=== PATIENT | male | born 1940 | race Caucasian/White ===

== ENCOUNTER 2017-01-20 09:12 | Emergency (ER) | payer OTHER ==
[~2017-01-20] VITALS: Ht 177.8 cm; Wt 123.0 kg
[~2017-01-20 09:12] MED LIST: ASPI81TA28 PO; CPR500 PO; ENAL10TA88 PO; FINA5TAB PO; FLM4 PO; LEVO75TA PO; LIDO2SOL TOP; LORA10CA2 PO; METF1000 PO; NAPR250T43 PO; NITR0.4S UT; PRAV20TA PO
[2017-01-20 09:22] VITALS: TEMP 36.9; Ht 177.8 cm; Wt 123.0 kg
[2017-01-20] MEDS ORDERED: METO50TA16 PO (09:49)
[2017-01-20] MEDS ORDERED: HYDR25TA4 PO (09:49)
[2017-01-20] MEDS ORDERED: METF-383 PO (09:49)
[2017-01-20] MEDS ORDERED: GUAIFENESIN PO (09:49)
[2017-01-20] MEDS ORDERED: MCR5 PO (09:49)
[2017-01-20] MEDS ORDERED: CICL80AE INH (09:49)
[2017-01-20] MEDS ORDERED: MELO7.5T5 PO (09:49)
[2017-01-20] MEDS ORDERED: ENAL10TA88 PO (09:49)
[2017-01-20] MEDS ORDERED: AMLO-110 PO (09:49)
[2017-01-20] MEDS ORDERED: TAMS0.4C38 PO (09:50)
[2017-01-20 09:54] LABS: HEMATOCRIT 47.2 % (42-52); MEAN CELL VOLUME 83.2 fL (80-100); MEAN CORPUSCULAR HEMOGLOBIN 25.9 pg (25-34); MEAN CORPUSCULAR HGB CONC 31.1 g/dl (32-36); PLATELET COUNT 174 K/uL (130-400); RED BLOOD COUNT 5.67 M/uL (4.7-6.1); WHITE BLOOD COUNT 11.72 K/uL (4.8-10.8)
[2017-01-20 10:02] LABS: PROTHROMBIN TIME (PATIENT) 10.9 SECONDS (9.0-12.0)
[2017-01-20 10:13] LABS: BUN/CREATININE RATIO 12.8 (10-20); CALCIUM 8.6 mg/dl (8.5-10.1); CREATININE 1.4 mg/dl (0.60-1.40); MAGNESIUM 1.7 mg/dl (1.8-2.4)
--- NOTE | 2017-01-20 10:16 | DIAGNOSTIC IMAGING REPORT ---
HEAD WITHOUT CONTRAST (CT) CT DOSE: 884.08 mGy.cm HISTORY: Mental status change eval for bleed TECHNIQUE: Multiaxial CT images of the head were performed without the use of intravenous contrast. A dose lowering technique was utilized adhering to the principles of ALARA. Comparison: None. Findings: The paranasal sinuses and mastoid air cells are clear. Mucous attention cyst left maxillary sinus. Nondisplaced fracture nasal bones considered nonacute by CT criteria.. The calvarium and skull base are intact. The ventricles and sulci are within normal limits. There is no mass, hematoma, midline shift, or acute infarct. Age-related atrophy and chronic small vessel change. No midline shift. Impression: No acute intracranial abnormality. Age-related and chronic change. The above report was generated using voice recognition software. It may contain grammatical, syntax or spelling errors. Electronically signed by: Edilberto Dubose M.D. 01/20/2017 10:14 AM Dictated Date/Time: 01/20/2017 10:12 AM
--- NOTE | 2017-01-20 10:16 | DIAGNOSTIC IMAGING REPORT ---
CHEST ONE VIEW PORTABLE CLINICAL HISTORY: Pneumonia COMPARISON STUDY: 12/01/2013 FINDINGS: The heart is mildly enlarged. There is no failure. There is a persistent opacity at the left cardiophrenic angle, likely representing atelectasis/scar.[ IMPRESSION: 1. Stable cardiomegaly 2. No failure 3. Stable opacity at the left cardiophrenic angle likely representing subsegmental atelectasis/scar Electronically signed by: Michael Dejesus M.D. 01/20/2017 10:14 AM Dictated Date/Time: 01/20/2017 10:14 AM
[2017-01-20 10:21] LABS: BASO % 0.3 %; BASO ABS # 0.03 K/uL (0-0.2); COMPLETE YES; EOS % 2.4 %; IG% 0.4 %; LYMPH % 17.7 %; LYMPH ABS # 2.07 K/uL (1.2-3.4); MONO % 9.1 %; NEUT % 70.1 %
[2017-01-20 10:22] LABS: THYROID STIMULATING HORMONE 1.97 uIu/ml (0.300-4.500)
[2017-01-20] MEDS ORDERED: SODIUM CHLORIDE 0.9% 250ML 250 ML IV STA (10:25)
[2017-01-20] MEDS ORDERED: MAGNESIUM OXIDE 400 MG TAB PO STA (10:25)
[2017-01-20 10:37] VITALS: BP 144/88; PULSE 56; O2SAT 92
--- NOTE | 2017-01-20 16:47 | EMERGENCY ROOM VISIT NOTE ---
History Report prepared by Haja: Maricel Cuellar Under the Supervision of: Dr. Javon Bryant M.D. First contact with patient: 09:36 Chief Complaint: SYNCOPE Stated Complaint: SYNCOPE Nursing Triage Summary: pt here via [facility] from [facility] with a syncopal event today after eating breakfast. pt has long hx of syncopal events from low potassium. pt states was dizzy prior to event. pt denies any pain. pt has abrasions to left knee and left wrist. History of Present Illness The patient is a 76 year old male who presents to the Emergency Room with complaints of syncope beginning today. The patient reports that he stood up and felt like he was going to pass out. He states that he passed out completely and that he fell down a step. He states he initially fell to his knees and arms and then passed out. He was only unconscious for a brief time. The patient states that he had help getting back up and that he does not think that he hit his head. He reports that he normally takes his medications after breakfast, but that today he took his medications and then went to breakfast. The patient states has had these episodes before but mostly when he's asleep and then sits up in the morning, or when he has been sitting and then goes to stand up. He reports that these episodes have been going on for years, but that his syncope today was more severe than usual. The patient denies having chest pain, shortness of breath before the episode, and back pain. The patient reports having a history of an abdominal aortic aneurysm repair, right carotid endarterectomy, and an aortic valve replacement in 2002. Source of History: patient Onset: today Position: other (global) Quality: other (syncope ) Timing: other (has had syncopal episodes before) Associated Symptoms: No chest pain, No SOB, No back pain Review of Systems See HPI for pertinent positives & negatives. A total of 10 systems reviewed and were otherwise negative. Past Medical & Surgical Medical Problems: (1) Coronary artery disease (2) Urinary retention (3) UTI (urinary tract infection) Surgical Problems: (1) H/O cardiac catheterization (2) H/O carotid endarterectomy (3) H/O percutaneous transluminal coronary angioplasty (4) Stented coronary artery Family History FH: prostate cancer Social History Smoking Status: Former Smoker Drug Use: none Housing Status: other Occupation Status: unemployed Current/Historical Medications Scheduled Amlodipine (Norvasc), 5 MG PO QAM Aspirin (Aspirin Ec), 81 MG PO QAM Ciclesonide (Alvesco), 1 PUFF INH BID Enalapril (Vasotec), 20 MG PO BID Finasteride (Proscar), 5 MG PO HS Glyburide (Glyburide), 5 MG PO BID Hydrochlorothiazide (Hctz), 25 MG PO QAM Levothyroxine Sodium (Synthroid), 75 MCG PO DAILY Meloxicam (Mobic), 15 MG PO HS Metformin Hcl (Glucophage), 850 MG PO TID Metoprolol Tartrate (Lopressor) (Lopressor), 50 MG PO BID Nitroglycerin (Nitrostat), 0.4 MG UT PRN Pravastatin (Pravachol ), 40 MG PO HS Tamsulosin Hcl (Flomax), 2 CAP PO HS [Guaifenesin], 400 MG PO QAM Allergies Coded Allergies: No Known Allergies (Unverified , 01/20/17) Physical Exam Vital Signs Date Time Temp Pulse Resp B/P (MAP) Pulse Ox O2 Delivery O2 Flow Rate FiO2 01/20/17 10:37 56 16 144/88 92 Room Air 01/20/17 10:00 61 128/59 60 120/61 66 103/64 01/20/17 09:24 61 01/20/17 09:22 36.9 65 16 141/71 92 Room Air Physical Exam Constitutional: Vital signs reviewed. Eyes: Pupils are equal round reactive to light. Conjunctiva are noninjected. ENT: Pharynx is clear without erythema or exudate. Mucous membranes are moist. Neck supple without meningeal signs. No midline tenderness to cervical spine. Respiratory: Clear to auscultation bilaterally. Breath sounds are equal bilaterally. Cardiovascular: Regular rate and rhythm. No rubs or gallops. No carotid bruit. GI: Soft, nondistended and nontender. Bowel sounds are present. No pulsatile masses. Musculoskeletal: Small skin tear to the left wrist without any tenderness. Abrasions to both knees without significant tenderness. No hip tenderness. Integumentary: No cyanosis. Neurological: The patient is awake and alert. Cranial nerves II-XII are intact. Motor is 5 out of 5 all extremities. Sensation is intact to light touch all extremities. Normal speech. No pronator drift. Psychiatric: Normal affect. Medical Decision & Procedures ER Provider Diagnostic Interpretation: CT results as stated below per my review and radiologist interpretation. HEAD WITHOUT CONTRAST (CT) CT DOSE: 884.08 mGy.cm HISTORY: Mental status change eval for bleed TECHNIQUE: Multiaxial CT images of the head were performed without the use of intravenous contrast. A dose lowering technique was utilized adhering to the principles of ALARA. Comparison: None. Findings: The paranasal sinuses and mastoid air cells are clear. Mucous attention cyst left maxillary sinus. Nondisplaced fracture nasal bones considered nonacute by CT criteria.. The calvarium and skull base are intact. The ventricles and sulci are within normal limits. There is no mass, hematoma, midline shift, or acute infarct. Age-related atrophy and chronic small vessel change. No midline shift. Impression: No acute intracranial abnormality. Age-related and chronic change. The above report was generated using voice recognition software. It may contain grammatical, syntax or spelling errors. Electronically signed by: Edilberto Dubose M.D. 01/20/2017 10:14 AM Dictated Date/Time: 01/20/2017 10:12 AM X-ray results as stated below per interpretation by me and the radiologist: CHEST ONE VIEW PORTABLE CLINICAL HISTORY: Pneumonia COMPARISON STUDY: 12/01/2013 FINDINGS: The heart is mildly enlarged. There is no failure. There is a persistent opacity at the left cardiophrenic angle, likely representing atelectasis/scar.[ IMPRESSION: 1. Stable cardiomegaly 2. No failure 3. Stable opacity at the left cardiophrenic angle likely representing subsegmental atelectasis/scar Electronically signed by: Michael Dejesus M.D. 01/20/2017 10:14 AM Dictated Date/Time: 01/20/2017 10:14 AM Laboratory Results 01/20/17 09:30 Red Blood Count 5.67, Mean Corpuscular Volume 83.2, Mean Corpuscular Hemoglobin 25.9, Mean Corpuscular Hemoglobin Concent 31.1, Mean Platelet Volume 11.0, Neutrophils (%) (Auto) 70.1, Lymphocytes (%) (Auto) 17.7, Monocytes (%) (Auto) 9.1, Eosinophils (%) (Auto) 2.4, Basophils (%) (Auto) 0.3, Neutrophils # (Auto) 8.22, Lymphocytes # (Auto) 2.07, Monocytes # (Auto) 1.07, Eosinophils # (Auto) 0.28, Basophils # (Auto) 0.03 01/20/17 09:30 Test 01/20/17 09:30 01/20/17 09:53 White Blood Count 11.72 K/uL (4.8-10.8) Red Blood Count 5.67 M/uL (4.7-6.1) Hemoglobin 14.7 g/dL (14.0-18.0) Hematocrit 47.2 % (42-52) Mean Corpuscular Volume 83.2 fL (80-100) Mean Corpuscular Hemoglobin 25.9 pg (25-34) Mean Corpuscular Hemoglobin Concent 31.1 g/dl (32-36) Platelet Count 174 K/uL (130-400) Mean Platelet Volume 11.0 fL (7.4-10.4) Neutrophils (%) (Auto) 70.1 % Lymphocytes (%) (Auto) 17.7 % Monocytes (%) (Auto) 9.1 % Eosinophils (%) (Auto) 2.4 % Basophils (%) (Auto) 0.3 % Neutrophils # (Auto) 8.22 K/uL (1.4-6.5) Lymphocytes # (Auto) 2.07 K/uL (1.2-3.4) Monocytes # (Auto) 1.07 K/uL (0.11-0.59) Eosinophils # (Auto) 0.28 K/uL (0-0.5) Basophils # (Auto) 0.03 K/uL (0-0.2) RDW Standard Deviation 45.7 fL (36.4-46.3) RDW Coefficient of Variation 15.1 % (11.5-14.5) Immature Granulocyte % (Auto) 0.4 % Immature Granulocyte # (Auto) 0.05 K/uL (0.00-0.02) Prothrombin Time 10.9 SECONDS (9.0-12.0) Prothromb Time International Ratio 1.0 (0.9-1.1) Activated Partial Thromboplast Time 26.6 SECONDS (21.0-31.0) Partial Thromboplastin Ratio 1.0 Anion Gap 8.0 mmol/L (3-11) Est Creatinine Clear Calc Drug Dose 60.0 ml/min Estimated GFR () 56.6 Estimated GFR (Non- 48.8 BUN/Creatinine Ratio 12.8 (10-20) Calcium Level 8.6 mg/dl (8.5-10.1) Magnesium Level 1.7 mg/dl (1.8-2.4) Total Bilirubin 0.5 mg/dl (0.2-1) Direct Bilirubin 0.1 mg/dl (0-0.2) Aspartate Amino Transf (AST/SGOT) 8 U/L (15-37) Alanine Aminotransferase (ALT/SGPT) 17 U/L (12-78) Alkaline Phosphatase 55 U/L (45-117) Total Protein 6.9 gm/dl (6.4-8.2) Albumin 3.3 gm/dl (3.4-5.0) Thyroid Stimulating Hormone (TSH) 1.970 uIu/ml (0.300-4.500) Free Thyroxine 1.18 ng/dl (0.80-1.60) Bedside Troponin I < 0.030 ng/ml (0-0.045) Laboratory results as reviewed by me. Medications Administered Medications (Trade) Dose Ordered Sig/Markel Route Start Time Stop Time Status Last Admin Dose Admin Magnesium Oxide (Mag-Ox Tab) 400 mg ONE STAT PO 01/20/17 10:25 01/20/17 10:28 DC 01/20/17 10:36 400 MG Sodium Chloride 250 ml @ 999 mls/hr Q16M STAT IV 01/20/17 10:25 01/20/17 10:40 DC 01/20/17 10:36 999 MLS/HR ECG Indication: syncope Rate (beats per minute): 66 Rhythm: normal sinus Findings: no acute ischemic change, left axis deviation, other (no significant changes from ECG on December 02, 2013) ED Course 0937: The patient was evaluated in room B6. A complete history and physical exam was performed. 1025: Ordered Sodium Chloride 250 ml @ 999 mls/hr IV, Magnesium Oxide 400 mg PO. 1032: We talked about his test results and he says he would like to go back to the [facility]. 1045: Upon reevaluation, the patient appeared to have improvement of his symptoms. I discussed tonight's findings with him. He verbalized agreement of the treatment plan. He was discharged back to the [facility]. Medical Decision This is a 76-year-old male presents with a syncopal episode. Differential diagnosis includes vasovagal syncope, orthostatic hypotension, dehydration, metabolic derangement, cardiac. I did perform a limited focused review of portions of the patient's old chart on the electronic medical record. The patient has had no recent pertinent visits to this hospital. I did evaluate the patient as noted above the patient is presenting with a syncopal episode. He states that he has been getting syncopal episodes for years. He often gets it when he stands up too quickly after lying down or sitting down. He states today that he took his medication before breakfast rather than after as he usually does and when he got up from breakfast he started to get lightheaded and passed out falling down one step. Currently he has no complaints. He at no time had any chest discomfort, shortness of breath or palpitations. IV access was established. The patient was placed on a continuous satellite project site monitor. I did order and personally review the patient's 12- lead EKG and chest x-ray as described above. I did order and review the patient 's blood work as noted in the electronic medical record. Troponin is negative. Electrolytes are unremarkable other than very mild hypomagnesemia. He is not anemic. He was given a dose of magnesium oxide. I did order a CT of the head. I did review the images myself as well as the radiology report as described above. There is no evidence of intracranial hemorrhage. We did obtain orthostatic vital signs. The patient does have orthostatic hypotension upon standing. This likely contributed to his syncope. He was given IV normal saline. I did discuss the test results with the patient. He did wish to return back to [facility]. He was advised follow up with the [facility] there and discharged in good condition. He was given precautions regarding his orthostatic hypotension. Medication Reconcilliation Current Medication List: was personally reviewed by me Blood Pressure Screening Patient's blood pressure: Elevated blood pressure Impression Primary Impression: Syncope Additional Impressions: Hypomagnesemia Orthostatic hypotension Scribe Attestation The scribe's documentation has been prepared under my direct and personally reviewed by me in its entirety. I confirm that the note above accurately reflects all work, treatment, procedures, and medical decision making performed by me. Departure Information Dispostion Other Referrals Katalina MCLAIN (PCP) Forms HOME CARE DOCUMENTATION FORM, IMPORTANT VISIT INFORMATION Patient Instructions ED Hypotension Orthostatic, My [facility], Syncope Additional Instructions You have been examined and treated today on an emergency basis only. This is not a substitute for, or an effort to provide, complete comprehensive medical care. It is impossible to recognize and treat all injuries or illnesses in a single emergency department visit. It is therefore important that you follow up closely with the [facility]. Return for worsening symptoms or if you develop fever, vomiting, chest pain, shortness of breath, back pain, abdominal pain or any other concerning symptoms. Do not engage in any activity that may put yourself or others at risk should you pass out again. This includes, but is not limited to, driving, taking a bath, climbing heights, swimming or operating heavy machinery Problem Qualifiers Primary Impression: Syncope Syncope type: unspecified Qualified Codes: R55 - Syncope and collapse
== END 2017-01-20 11:07 | disposition home or self-care (01) ==
LOC: EDBD 09:12 → C.EDB 09:13
DX: R55 Syncope and collapse (principal); E83.42 Hypomagnesemia; I95.1 Orthostatic hypotension; I25.10 Atherosclerotic heart disease of native coronary artery without angina pectoris; Z87.440 Personal history of urinary (tract) infections; Z98.61 Coronary angioplasty status; Z98.890 Other specified postprocedural states; Z87.891 Personal history of nicotine dependence; Z79.82 Long term (current) use of aspirin; Z79.84 Long term (current) use of oral hypoglycemic drugs; Z79.899 Other long term (current) drug therapy; Z80.42 Family history of malignant neoplasm of prostate

== ENCOUNTER → 2017-08-18 | Outpatient (CLI) | payer OTHER ==
[~2017-08-18] MED LIST changes: +AMLO-110 PO; +CICL80AE INH; -CPR500 PO; -FLM4 PO; +GUAIFENESIN PO; +HYDR25TA4 PO; -LIDO2SOL TOP; -LORA10CA2 PO; +MCR5 PO; +MELO7.5T5 PO; +METF-383 PO; -METF1000 PO; +METO50TA16 PO; -NAPR250T43 PO; +PERFLUTREN LIPID MICROSPHERE (DEFINITY) IV ONE; +TAMS0.4C38 PO
--- NOTE | 2017-08-18 15:22 | ECHOCARDIOGRAM REPORT ---
*NOTICE TO RECEIVING LIBERTARIAN AGENCY This information is strictly Confidential and protected under [place] law. [place] law prohibits you from making any further disclosure of this information unless further disclosure is expressly permitted by the written consent of the person to whom it pertains or is authorized by law. A general authorization for the release of medical or other information is not sufficient for this purpose. Hospital accepts no responsibility if the information is made available to any other person, INCLUDING THE PATIENT. Interpretation Summary * Name: YOUNG UMANZOR [id number] Study Date: 08/18/2017 01:07 PM BP: 170/84 mmHg * Patient Location: [facility] HR: 73 * : 1940 (M/d/yyyy) Gender: Male Height: 70 in * Age: 77 yrs Ethnicity: CA Weight: 262 lb * Ordering Physician: Richar Bush * Referring Physician: Polo Richmond D.O. * Performed By: Nicole Daniel RDCS * * Reason For Study: Congestive Heart Failure * BSA: 2.3 m2 * -- Conclusions -- * Left ventricular systolic function is normal. * No regional wall motion abnormalities noted. * Ejection Fraction = 55-60%. * There is mild concentric left ventricular hypertrophy. * Grade I diastolic dysfunction, (abnormal relaxation pattern). Procedure Details * A complete two-dimensional transthoracic echocardiogram was performed (2D, M-mode, Doppler and color flow Doppler). * The study was technically difficult. * The study was technically difficult, but visualization was adequate with the administration of Definity ultrasound contrast. * There were technical limitations due to patient'sbody habitus * A contrast injection of Definity was performed to improve assessment of LV function. * Contrast was injected into an intravenous site in the right arm. * One vial of Definity ultrasound contrast was diluted in normal saline to a total volume of 10 ml. A total of '2' ml of solution was administered during imaging. * Lot # [id number] of Definity utilized for procedure. * Expiration date . * The attending nurse who injected the contrast agent was Irena Martini RN. Left Ventricle * The left ventricle is normal in size. * There is mild concentric left ventricular hypertrophy. * Ejection Fraction = 55-60%. * Left ventricular systolic function is normal. * No regional wall motion abnormalities noted. Right Ventricle * The right ventricle is grossly normal size. * The right ventricular systolic function is normal as assessed by tricuspid annular plane systolic excursion (TAPSE) (normal >1.5 cm). Atria * The left atrium is moderately dilated. * The right atrium is mildly dilated. * No ASD detected; PFO is not assessed. Mitral Valve * The mitral valve is grossly normal. * There is no mitral valve stenosis. * Significant mitral regurgitation is absent. Tricuspid Valve * The tricuspid valve is not well visualized, but is grossly normal. * There is no tricuspid stenosis. * Significant tricuspid regurgitation is absent. Aortic Valve * The aortic valve is not well visualized. * The aortic valve opens well. * No hemodynamically significant valvular aortic stenosis. * No aortic regurgitation is present. Pulmonic Valve * The pulmonary valve is not well seen, but the Doppler examination is normal without significant regurgitation or stenosis. Great Vessels * The aortic root is normal size. * The pulmonary is not well visualized. Pericardium/Pleural * There is no pericardial effusion. Great Vessels * Normal inferior vena cava size and collapsability with sniff indicates a normal right atrial pressure of 3 mmHg Left Ventricular Diastolic Function * Grade I diastolic dysfunction, (abnormal relaxation pattern). MMode 2D Measurements and Calculations IVSd 1.3 cm IVSs 1.5 cm LVIDd 4.3 cm LVIDs 2.8 cm LVPWd 1.2 cm LVPWs 1.2 cm IVS/LVPW 1.1 FS 34.2 % EDV(Teich) 81.0 ml ESV(Teich) 29.5 ml EF(Teich) 63.6 % EDV(cubed) 77.0 ml ESV(cubed) 21.9 ml EF(cubed) 71.6 % % IVS thick 17.6 % % LVPW thick 1.9 % LV mass(C)d 187.6 grams LV mass(C)dI 80.1 grams/m\S\2 LV mass(C)s 120.5 grams LV mass(C)sI 51.5 grams/m\S\2 SV(Teich) 51.5 ml SI(Teich) 22.0 ml/m\S\2 SV(cubed) 55.1 ml SI(cubed) 23.5 ml/m\S\2 Ao root diam 3.1 cm Ao root area 7.3 cm\S\2 ACS 1.9 cm LA dimension 4.5 cm LA/Ao 1.5 LVAd ap4 29.6 cm\S\2 LVLd ap4 8.3 cm EDV(MOD-sp4) 88.0 ml EDV(sp4-el) 89.5 ml LVAs ap4 17.0 cm\S\2 LVLs ap4 6.7 cm ESV(MOD-sp4) 36.3 ml ESV(sp4-el) 36.5 ml EF(MOD-sp4) 58.8 % EF(sp4-el) 59.3 % LVAd ap2 30.3 cm\S\2 LVLd ap2 9.1 cm EDV(MOD-sp2) 88.2 ml EDV(sp2-el) 85.8 ml LVAs ap2 18.3 cm\S\2 LVLs ap2 7.8 cm ESV(MOD-sp2) 39.5 ml ESV(sp2-el) 36.4 ml EF(MOD-sp2) 55.2 % EF(sp2-el) 57.6 % LVLd %diff 8.9 % EDV(MOD-bp) 91.4 ml LVLs %diff 13.7 % ESV(MOD-bp) 39.4 ml EF(MOD-bp) 56.9 % SV(MOD-sp4) 51.8 ml SI(MOD-sp4) 22.1 ml/m\S\2 SV(MOD-sp2) 48.7 ml SI(MOD-sp2) 20.8 ml/m\S\2 SV(MOD-bp) 52.0 ml SI(MOD-bp) 22.2 ml/m\S\2 SV(sp4-el) 53.1 ml SI(sp4-el) 22.7 ml/m\S\2 SV(sp2-el) 49.4 ml SI(sp2-el) 21.1 ml/m\S\2 Doppler Measurements and Calculations MV E max ruba 62.8 cm/sec MV A max ruba 91.4 cm/sec MV E/A 0.69 MV dec time 0.16 sec Ao V2 max 103.4 cm/sec Ao max PG 4.3 mmHg Ao max PG (full) 1.3 mmHg LV V1 max PG 3.0 mmHg LV V1 max 86.8 cm/sec PA V2 max 92.5 cm/sec PA max PG 3.4 mmHg
== END | disposition home or self-care (01) ==
LOC: C.CPL 13:01
PROVIDERS: ATTEND Family Medicine
DX: I50.9 Heart failure, unspecified (principal); I25.10 Atherosclerotic heart disease of native coronary artery without angina pectoris; E78.5 Hyperlipidemia, unspecified; I11.0 Hypertensive heart disease with heart failure

== ENCOUNTER 2020-01-07 15:38 | Inpatient (IN) ==
--- NOTE | 2020-01-07 15:58 | Emergency Department Note ---
Impression & Plan Sepsis, Hypoxia, Acute dyspnea, Cough, Elevated troponin, Abnormal ECG ED Provider Note NAME: YOUNG NOGUERA [id number] NOÉ AGE: 79 SEX: M : 1940 ARRIVES VIA: Ambulance INFORMANT: Patient ED PROVIDER(S): Xavier Crowder DO CHIEF COMPLAINT: Chest pain HPI: Patient is a 79-year-old male who presents the ER for chest pain via EMS. Patient notes that he woke up around 3 PM and his whole body was shaking. He notes that he started having chest tightness. He notes that for the past week he has been having worsening cough but no change in sputum. He notes that he has been also having worsening shortness of breath. He has some shortness of breath now but his chest pain has resolved with the medication that he was given. He had some jaw pain and right-sided arm pain associated with this chest pain. He describes his pain as a 0 out of 10 currently. He was given aspirin and had complete resolution of pain with nitro. He was found to be 84% via EMS and placed on nonrebreather. He denies any runny nose. No belly pain, nausea, vomiting or diarrhea. No dysuria urgency or frequency. He admits to previous RI and had 2 previous stents. ROS: See above HPI for pertinent positives & negatives. A total of 10 systems reviewed and were otherwise negative. PAST MEDICAL HISTORY:See Below PAST SURGICAL HISTORY:See Below FAMILY HISTORY:See Below SOCIAL HISTORY:See Below HOME MEDICATIONS:See Below ALLERGIES:See Below VITALS:See Below PHYSICAL EXAMINATION: GENERAL: Sitting up in bed, alert, obese, ill-appearing on nonrebreather EYE EXAM: normal conjunctiva. OROPHARYNX: no exudate, no erythema, lips, buccal mucosa, and tongue normal and mucous membranes are moist LUNGS: Diminished bilaterally. Normal chest wall mechanics HEART: Tachycardic, S1 normal and S2 normal ABDOMEN: abdomen soft, non-tender, normo-active bowel sounds, no masses, no rebo und or guarding. BACK: Back is symmetrical on inspection and there is no deformity, no midline tenderness, no CVA tenderness. SKIN: no rashes and no bruising UPPER EXTREMITIES: upper extremities are grossly normal. LOWER EXTREMITIES: +pitting edema B/L NEURO EXAM: Normal sensorium, cranial nerves II-XII grossly intact, normal speech, no gross weakness of arms, no gross weakness of legs. MEDICAL DECISION MAKING: Patient is a 79-year-old male who presents the ER with a past medical history of an RI for chest pain and shaking chills. Brought in by EMS on a nonrebreather. He notes that he has been getting short of breath over the past week associated with a worsening cough. IV was established blood work was obtained. He was given IV Levaquin and Rocephin. Prehospital EKG showed significant ST depressions in the lateral leads. He was pain-free after the nitroglycerin that he received and baby aspirin prior to arrival. He was significantly febrile at 39.5. He is from a [facility] with three positive covids. Placed on coronavirus precautions. Blood cultures were obtained. Labs show leukocytosis of 25,000. No significant anemia. INR was unremarkable. BMP was unremarkable. Magnesium slightly low. Bilirubin negative. LFTs normal. Troponin positive at 0.5. UA was clean. EKG did show ST depressions but it was improved significant from EMSs and he was pain-free. Initial chest x-ray showed an infiltrate. With this in mind did order COVID testing as he was hypoxic had an infiltrate on his chest x-ray and was febrile. He was sent to CT angios as I did consider PE as well. CT Tram of the chest was negative. There is no infiltrate. Cover testing later eventually came back negative. He received IV fluids IV Rocephin and IV Levaquin. He has no belly pain. No erythema on the skin. He does have pitting edema. With the fever of 39.5, leukocytosis of 24,000 and a cough I do favor that this is likely infectious in nature which is causing demand ischemia. Discussed with the hospitalist and patient was updated at bedside. Will be admitted for further work-up. Bio fire was ordered from respiratory standpoint. Patient did drop his pressure slightly to low 100s. Triage Nursing notes reviewed. Prior medical records reviewed Vital Signs: reviewed and remarkable for hypoxic and tachycardic Differential diagnosis: Differential diagnoses includes but is not limited to acute coronary syndrome, myocardial infarction, pericarditis, pulmonary embolus, aortic dissection, pneum onia, pneumothorax, musculoskeletal, shingles, esophageal. ER treatment provided: See below Diagnostics interpreted by me: ECG: Sinus tachycardia rate of 125 Left axis No PVCs Normal QTC ST depressions in the lateral leads are improved from EMS EKG ST wave changes are new in comparison to June 2018 EKG EKG #2 from EMS Sinus tachycardia rate of [address] depressions V4 5 and 6 Left axis TWI in the high lateral leads Cardiac Monitoring: An order was placed for continuous cardiac monitoring. The monitor shows a rate of 125 with sinus rhythm. Laboratory studies: As stated above and show below. Imaging studies: Portable AP upright 1 view of the chest shows questionable infiltrate CT Angio of the chest shows no PEs or pneumonia Consultation(s): Discussed with Dr. Prasad for admission ED COURSE: Procedures: none Critical Care: I have personally spent 75 minutes of critical care time in the direct managem ent of this patient. This includes bedside care, interpretation of diagnostic studies, and testing, discussion with consultants, patient, and family members, and other required patient management activities. This 75 minutes is in excess of all separately billable procedures. Past Med/Surg History Medical History (Updated 01/07/20 @ 19:38 by Xavier Crowder DO) Coronary artery disease (Chronic) Heart attack Hypomagnesemia (Acute) Orthostatic hypotension (Acute) Prostatitis, acute (Acute) SOB (shortness of breath) (Acute) Syncope (Acute) Urinary retention (Acute) Urinary retention (Resolved) Urinary retention (Acute) Urinary retention (Acute) UTI (urinary tract infection) (Resolved) Surgical History (Updated 06/29/18 @ 10:46 by Zuleyka Salguero) H/O cardiac catheterization (Resolved) H/O carotid endarterectomy H/O percutaneous transluminal coronary angioplasty (Resolved) Stented coronary artery (Chronic) Social History (Updated 06/29/18 @ 10:47 by Zuleyka Salguero) Smoking Status: Never smoker Preferred Language: Surinamese Communication Ability: Effective Visual Impairment: No Limitations Hearing Ability: Normal Current Living Situation: Other Current Living Situation Comment: [facility] Feels Safe at Home: Yes Allergies Allergies Allergy/AdvReac Type Severity Reaction Status Date / Time No Known Allergies Allergy Unverified 01/07/20 16:16 Home Meds Home Medications Medication Instructions Recorded Confirmed aspirin [Aspirin Low Dose] 81 mg PO QAM 06/29/18 01/07/20 enalapril maleate [Vasotec] 5 mg PO BID 06/29/18 01/07/20 finasteride [Proscar] 5 mg PO HS 06/29/18 01/07/20 furosemide [Lasix] 40 mg PO DAILY 06/29/18 01/07/20 glyburide 5 mg PO BID 06/29/18 01/07/20 levalbuterol tartrate [Xopenex HFA] 2 inh INHALATION QID PRN 06/29/18 01/07/20 levothyroxine 75 mcg PO DAILY 06/29/18 01/07/20 meloxicam 15 mg PO HS 06/29/18 01/07/20 metformin 850 mg PO TID 06/29/18 01/07/20 metoprolol tartrate 12.5 mg PO BID 06/29/18 01/07/20 nitroglycerin [Nitrostat] 0.4 mg SUBLINGUAL Q5M PRN 06/29/18 01/07/20 pravastatin 40 mg PO HS 06/29/18 01/07/20 tamsulosin [Flomax] 0.8 mg PO QPM 06/29/18 01/07/20 ciclesonide [Alvesco] 1 puff INHALATION BID 01/07/20 01/07/20 salmeterol [Serevent Diskus] 1 inh INHALATION BID 01/07/20 01/07/20 umeclidinium [Incruse Ellipta] 1 inh INHALATION DAILY 01/07/20 01/07/20 Results & Data (ED) Vital Signs Vital Signs - 24 hr 01/07/20 15:41 01/07/20 16:00 01/07/20 16:15 Temperature 39.5 C H Temperature Source Oral Pulse Rate 120 H 117 H 115 H Pulse Rate from SpO2 Sensor 117 H 115 H Respiratory Rate 24 23 20 Respiratory Effort / Characteristics Non-Labored Spontaneous Respiratory Depth Normal Respiratory Pattern Regular Blood Pressure 158/83 H 152/85 H Blood Pressure Mean 108 93 Pulse Oximetry 99 99 99 Oxygen Delivery Method Non-rebreather Non-rebreather Oxygen Flow Rate 10 10 Sepsis Recent Fever Within 48 Hours Yes Sepsis New/Unexplained Change in Mental Status No Sepsis Action Taken by Nursing Physician Notified Oxygen Flow Rate - Titration Pulse Oximetry Post Tiitration 01/07/20 16:30 01/07/20 16:45 01/07/20 17:00 Temperature Temperature Source Pulse Rate 118 H 122 H 114 H Pulse Rate from SpO2 Sensor 118 H 121 H 112 H Respiratory Rate 25 H 23 23 Respiratory Effort / Characteristics Respiratory Depth Respiratory Pattern Blood Pressure 161/91 H 136/76 Blood Pressure Mean 114 100 Pulse Oximetry 99 98 99 Oxygen Delivery Method Room Air Oxygen Flow Rate Sepsis Recent Fever Within 48 Hours Sepsis New/Unexplained Change in Mental Status Sepsis Action Taken by Nursing Oxygen Flow Rate - Titration Pulse Oximetry Post Tiitration 01/07/20 17:15 01/07/20 17:30 01/07/20 17:40 Temperature 38.5 C H Temperature Source Oral Pulse Rate 117 H 116 H Pulse Rate from SpO2 Sensor Respiratory Rate 16 28 H Respiratory Effort / Characteristics Respiratory Depth Respiratory Pattern Blood Pressure 143/77 H Blood Pressure Mean 101 Pulse Oximetry 99 Oxygen Delivery Method Non-rebreather Oxygen Flow Rate 10 Sepsis Recent Fever Within 48 Hours Sepsis New/Unexplained Change in Mental Status Sepsis Action Taken by Nursing Oxygen Flow Rate - Titration Pulse Oximetry Post Tiitration 01/07/20 17:45 01/07/20 17:47 01/07/20 18:00 Temperature Temperature Source Pulse Rate 111 H 105 H Pulse Rate from SpO2 Sensor 111 H 105 H Respiratory Rate 24 21 Respiratory Effort / Characteristics Respiratory Depth Respiratory Pattern Blood Pressure Blood Pressure Mean Pulse Oximetry 92 99 93 Oxygen Delivery Method Nasal Cannula Non-rebreather Oxygen Flow Rate 10 Sepsis Recent Fever Within 48 Hours Sepsis New/Unexplained Change in Mental Status Sepsis Action Taken by Nursing Oxygen Flow Rate - Titration 4 Pulse Oximetry Post Tiitration 94 01/07/20 18:31 01/07/20 18:45 01/07/20 19:00 Temperature Temperature Source Pulse Rate 114 H 105 H Pulse Rate from SpO2 Sensor 106 H 115 H Respiratory Rate 22 18 Respiratory Effort / Characteristics Respiratory Depth Respiratory Pattern Blood Pressure Blood Pressure Mean Pulse Oximetry 95 94 Oxygen Delivery Method Nasal Cannula Nasal Cannula Oxygen Flow Rate 4 4 Sepsis Recent Fever Within 48 Hours Sepsis New/Unexplained Change in Mental Status Sepsis Action Taken by Nursing Oxygen Flow Rate - Titration Pulse Oximetry Post Tiitration 01/07/20 19:15 01/07/20 19:30 01/07/20 19:31 Temperature Temperature Source Pulse Rate 101 H 101 H 102 H Pulse Rate from SpO2 Sensor 101 H 102 H Respiratory Rate 20 26 H 27 H Respiratory Effort / Characteristics Respiratory Depth Respiratory Pattern Blood Pressure 97/55 L Blood Pressure Mean 75 Pulse Oximetry 96 96 Oxygen Delivery Method Nasal Cannula Nasal Cannula Nasal Cannula Oxygen Flow Rate 4 4 4 Sepsis Recent Fever Within 48 Hours Sepsis New/Unexplained Change in Mental Status Sepsis Action Taken by Nursing Oxygen Flow Rate - Titration Pulse Oximetry Post Tiitration Laboratory Data Result diagrams: 01/07/20 17:21 01/07/20 16:30 Lab Results 01/07/20 01/07/20 01/07/20 Range/Units 15:50 16:30 16:30 WBC Cancelled RBC Cancelled Hgb Cancelled Hct Cancelled MCV Cancelled MCH Cancelled MCHC Cancelled RDW Std Deviation Cancelled RDW Coeff of Brigid Cancelled Plt Count Cancelled MPV Cancelled Immature Gran % (Auto) Cancelled Neut % (Auto) Cancelled Lymph % (Auto) Cancelled [place] % (Auto) Cancelled Eos % (Auto) Cancelled Baso % (Auto) Cancelled Neut # (Auto) Cancelled Lymph # (Auto) Cancelled [place] # (Auto) Cancelled Eos # (Auto) Cancelled Baso # (Auto) Cancelled Immature Gran # (Auto) Cancelled Absolute Nucleated RBC Cancelled Nucleated RBC % (auto) Cancelled Neutrophils % (Manual) Cancelled Band Neutrophils % Cancelled Lymphocytes % (Manual) Cancelled Prolymphocyte % Cancelled Reactive Lymphs % (Man) Cancelled Monocytes % (Manual) Cancelled Eosinophils % (Manual) Cancelled Basophils % (Manual) Cancelled Metamyelocytes % (Man) Cancelled Myelocytes % (Man) Cancelled Promyelocytes % (Man) Cancelled Blast Cells % (Manual) Cancelled Plasma Cell % (Manual) Cancelled Other Cells % Cancelled Nucleated RBC % Cancelled Neutrophils # (Manual) Cancelled Band Neutrophils # Cancelled Total Absolute Neuts Cancelled Lymphocytes # (Manual) Cancelled Prolymphocyte # Cancelled Reactive Lymphs # Cancelled Total Abs Lymphocytes Cancelled Monocytes # (Manual) Cancelled Eosinophils # (Manual) Cancelled Basophils # (Manual) Cancelled Metamyelocytes # (Man) Cancelled Myelocytes # (Manual) Cancelled Promyelocytes # (Man) Cancelled Blast Cells # (Man) Cancelled Plasma Cell # (Manual) Cancelled Other Cells # Cancelled Nucleated RBCs # (Man) Cancelled Hypersegmented Neuts Cancelled Hyposegmented Neuts Cancelled Hypogranular Neuts Cancelled Large Granular Lymphs Cancelled # Lrg Granular Lymphs Cancelled Hairy Cells Cancelled Smudge Cells Cancelled Toxic Granulation Cancelled Toxic Vacuolation Cancelled Dohle Bodies Cancelled Sherie Rods Cancelled Platelet Estimate Cancelled Hypogranular Platelets Cancelled Clumped Platelets Cancelled Giant Platelets Cancelled Platelet Satelliting Cancelled RBC Morphology Cancelled Polychromasia Cancelled Hypochromasia Cancelled Poikilocytosis Cancelled Basophilic Stippling Cancelled Anisocytosis Cancelled Microcytosis Cancelled Macrocytosis Cancelled Spherocytes Cancelled Pappenheimer Bodies Cancelled Sickle Cells Cancelled Target Cells Cancelled Tear Drop Cells Cancelled Ovalocytes Cancelled Stomatocytes Cancelled [place] Bodies Cancelled Echinocytes Cancelled Acanthocytes (Spur) Cancelled Rouleaux Cancelled RBC Agglutinates Cancelled Schistocytes Cancelled RBC Morph Comment Cancelled Sezary Cell Cancelled PT Cancelled INR Cancelled APTT Cancelled PTT Ratio Cancelled Sodium (136-145) mmol/L Potassium (3.5-5.1) mmol/L Chloride (98-107) mmol/L Carbon Dioxide (21-32) mmol/L Anion Gap (3-11) BUN (7-18) mg/dl Creatinine (0.6-1.4) mg/dl Est Cr Clr Drug Dosing ml/min Est GFR ( Amer) Est GFR (Non-Af Amer) BUN/Creatinine Ratio (10-20) Glucose (70-99) mg/dl Lactate (0.4-2.0) mmol/L Calcium (8.5-10.1) mg/dl Magnesium (1.8-2.4) mg/dl Total Bilirubin (0.2-1) mg/dl AST (15-37) U/L ALT (12-78) U/L Alkaline Phosphatase (45-117) U/L Troponin I (0-0.045) ng/ml Total Protein (6.4-8.2) gm/dl Albumin (3.4-5.0) gm/dl Globulin (2.5-4.0) gm/dl Albumin/Globulin Ratio (0.9-2) Urine Color Yellow Urine Appearance Clear (Clear) Urine pH 5.5 (4.5-7.5) Ur Specific [place] 1.017 (1.000-1.030) Urine Protein 2+ H (Negative) Urine Glucose (UA) Negative (Negative) Urine Ketones 1+ H (Negative) Urine Blood 1+ H (Negative) Urine Nitrite Negative (Negative) Urine Bilirubin Negative (Negative) Urine Urobilinogen Negative (Negative) Ur Leukocyte Esterase Negative (Negative) Urine WBC (Auto) 1-5 (0-5) /hpf Urine RBC (Auto) 0-4 (0-4) /hpf U Hyaline Cast (Auto) 0 (0-5) /lpf U Epithel Cells (Auto) 0-5 (0-5) /lpf Urine Bacteria (Auto) Negative (Negative) Nasal Influ A H1 2008 PCR Adenovirus (PCR) B. pertussis DNA (PCR) B.parapertussis DNA PCR C. pneumoniae DNA (PCR) Coronavirus OC43 (PCR) Coronavirus HKU1 (PCR) Coronavirus 229E (PCR) COVID-19 PCR (Negative) Coronavirus NL63 (PCR) Human Metapneumovir PCR Influenza A (H1) PCR Influenza A (H3) PCR Influenza Type A (PCR) Influenza A Untype (PCR) Influenza Type B (PCR) M. pneumoniae (PCR) Parainfluenza 1 (PCR) Parainfluenza 2 (PCR) Parainfluenza 3 (PCR) Parainfluenza 4 (PCR) RSV (PCR) Entero/Rhino (PCR) 01/07/20 01/07/20 01/07/20 Range/Units 16:30 16:30 17:21 WBC 24.92 H RBC 6.03 Hgb 16.2 Hct 49.8 MCV 82.6 MCH 26.9 MCHC 32.5 RDW Std Deviation 46.9 H RDW Coeff of Brigid 15.6 H Plt Count 142 MPV 11.5 H Immature Gran % (Auto) 0.5 Neut % (Auto) 94.5 Lymph % (Auto) 2.1 [place] % (Auto) 2.6 Eos % (Auto) 0.2 Baso % (Auto) 0.1 Neut # (Auto) 23.52 H Lymph # (Auto) 0.53 L [place] # (Auto) 0.66 H Eos # (Auto) 0.06 Baso # (Auto) 0.02 Immature Gran # (Auto) 0.13 H Absolute Nucleated RBC Nucleated RBC % (auto) Neutrophils % (Manual) Band Neutrophils % Lymphocytes % (Manual) Prolymphocyte % Reactive Lymphs % (Man) Monocytes % (Manual) Eosinophils % (Manual) Basophils % (Manual) Metamyelocytes % (Man) Myelocytes % (Man) Promyelocytes % (Man) Blast Cells % (Manual) Plasma Cell % (Manual) Other Cells % Nucleated RBC % Neutrophils # (Manual) Band Neutrophils # Total Absolute Neuts Lymphocytes # (Manual) Prolymphocyte # Reactive Lymphs # Total Abs Lymphocytes Monocytes # (Manual) Eosinophils # (Manual) Basophils # (Manual) Metamyelocytes # (Man) Myelocytes # (Manual) Promyelocytes # (Man) Blast Cells # (Man) Plasma Cell # (Manual) Other Cells # Nucleated RBCs # (Man) Hypersegmented Neuts Hyposegmented Neuts Hypogranular Neuts Large Granular Lymphs # Lrg Granular Lymphs Hairy Cells Smudge Cells Toxic Granulation Toxic Vacuolation Dohle Bodies Sherie Rods Platelet Estimate Decreased L Hypogranular Platelets Clumped Platelets Giant Platelets Platelet Satelliting RBC Morphology Polychromasia Hypochromasia Poikilocytosis Basophilic Stippling Anisocytosis Microcytosis Macrocytosis Spherocytes Pappenheimer Bodies Sickle Cells Target Cells Tear Drop Cells Ovalocytes Stomatocytes [place] Bodies Echinocytes Acanthocytes (Spur) Rouleaux RBC Agglutinates Schistocytes RBC Morph Comment Sezary Cell PT INR APTT PTT Ratio Sodium 139 (136-145) mmol/L Potassium 4.6 (3.5-5.1) mmol/L Chloride 107 (98-107) mmol/L Carbon Dioxide 25 (21-32) mmol/L Anion Gap 7.0 (3-11) BUN 17 (7-18) mg/dl Creatinine 1.24 (0.6-1.4) mg/dl Est Cr Clr Drug Dosing 65.3 ml/min Est GFR ( Amer) 64.1 Est GFR (Non-Af Amer) 55.3 BUN/Creatinine Ratio 14.0 (10-20) Glucose 132 H (70-99) mg/dl Lactate 1.9 (0.4-2.0) mmol/L Calcium 8.4 L (8.5-10.1) mg/dl Magnesium 1.5 L (1.8-2.4) mg/dl Total Bilirubin 0.6 (0.2-1) mg/dl AST 20 (15-37) U/L ALT 23 (12-78) U/L Alkaline Phosphatase 57 (45-117) U/L Troponin I 0.514 H* (0-0.045) ng/ml Total Protein 7.4 (6.4-8.2) gm/dl Albumin 3.4 (3.4-5.0) gm/dl Globulin 4.0 (2.5-4.0) gm/dl Albumin/Globulin Ratio 0.9 (0.9-2) Urine Color Urine Appearance (Clear) Urine pH (4.5-7.5) Ur Specific [place] (1.000-1.030) Urine Protein (Negative) Urine Glucose (UA) (Negative) Urine Ketones (Negative) Urine Blood (Negative) Urine Nitrite (Negative) Urine Bilirubin (Negative) Urine Urobilinogen (Negative) Ur Leukocyte Esterase (Negative) Urine WBC (Auto) (0-5) /hpf Urine RBC (Auto) (0-4) /hpf U Hyaline Cast (Auto) (0-5) /lpf U Epithel Cells (Auto) (0-5) /lpf Urine Bacteria (Auto) (Negative) Nasal Influ A H1 2009 PCR Adenovirus (PCR) B. pertussis DNA (PCR) B.parapertussis DNA PCR C. pneumoniae DNA (PCR) Coronavirus OC43 (PCR) Coronavirus HKU1 (PCR) Coronavirus 229E (PCR) COVID-19 PCR (Negative) Coronavirus NL63 (PCR) Human Metapneumovir PCR Influenza A (H1) PCR Influenza A (H3) PCR Influenza Type A (PCR) Influenza A Untype (PCR) Influenza Type B (PCR) M. pneumoniae (PCR) Parainfluenza 1 (PCR) Parainfluenza 2 (PCR) Parainfluenza 3 (PCR) Parainfluenza 4 (PCR) RSV (PCR) Entero/Rhino (PCR) 01/07/20 01/07/20 01/07/20 Range/Units 17:21 17:39 19:43 WBC RBC Hgb Hct MCV MCH MCHC RDW Std Deviation RDW Coeff of Brigid Plt Count MPV Immature Gran % (Auto) Neut % (Auto) Lymph % (Auto) [place] % (Auto) Eos % (Auto) Baso % (Auto) Neut # (Auto) Lymph # (Auto) [place] # (Auto) Eos # (Auto) Baso # (Auto) Immature Gran # (Auto) Absolute Nucleated RBC Nucleated RBC % (auto) Neutrophils % (Manual) Band Neutrophils % Lymphocytes % (Manual) Prolymphocyte % Reactive Lymphs % (Man) Monocytes % (Manual) Eosinophils % (Manual) Basophils % (Manual) Metamyelocytes % (Man) Myelocytes % (Man) Promyelocytes % (Man) Blast Cells % (Manual) Plasma Cell % (Manual) Other Cells % Nucleated RBC % Neutrophils # (Manual) Band Neutrophils # Total Absolute Neuts Lymphocytes # (Manual) Prolymphocyte # Reactive Lymphs # Total Abs Lymphocytes Monocytes # (Manual) Eosinophils # (Manual) Basophils # (Manual) Metamyelocytes # (Man) Myelocytes # (Manual) Promyelocytes # (Man) Blast Cells # (Man) Plasma Cell # (Manual) Other Cells # Nucleated RBCs # (Man) Hypersegmented Neuts Hyposegmented Neuts Hypogranular Neuts Large Granular Lymphs # Lrg Granular Lymphs Hairy Cells Smudge Cells Toxic Granulation Toxic Vacuolation Dohle Bodies Sherie Rods Platelet Estimate Hypogranular Platelets Clumped Platelets Giant Platelets Platelet Satelliting RBC Morphology Polychromasia Hypochromasia Poikilocytosis Basophilic Stippling Anisocytosis Microcytosis Macrocytosis Spherocytes Pappenheimer Bodies Sickle Cells Target Cells Tear Drop Cells Ovalocytes Stomatocytes Love-[place] Bodies Echinocytes Acanthocytes (Spur) Rouleaux RBC Agglutinates Schistocytes RBC Morph Comment Sezary Cell PT 11.3 INR 1.1 APTT 25.4 PTT Ratio 0.9 Sodium (136-145) mmol/L Potassium (3.5-5.1) mmol/L Chloride (98-107) mmol/L Carbon Dioxide (21-32) mmol/L Anion Gap (3-11) BUN (7-18) mg/dl Creatinine (0.6-1.4) mg/dl Est Cr Clr Drug Dosing ml/min Est GFR ( Amer) Est GFR (Non-Af Amer) BUN/Creatinine Ratio (10-20) Glucose (70-99) mg/dl Lactate (0.4-2.0) mmol/L Calcium (8.5-10.1) mg/dl Magnesium (1.8-2.4) mg/dl Total Bilirubin (0.2-1) mg/dl AST (15-37) U/L ALT (12-78) U/L Alkaline Phosphatase (45-117) U/L Troponin I (0-0.045) ng/ml Total Protein (6.4-8.2) gm/dl Albumin (3.4-5.0) gm/dl Globulin (2.5-4.0) gm/dl Albumin/Globulin Ratio (0.9-2) Urine Color Urine Appearance (Clear) Urine pH (4.5-7.5) Ur Specific [place] (1.000-1.030) Urine Protein (Negative) Urine Glucose (UA) (Negative) Urine Ketones (Negative) Urine Blood (Negative) Urine Nitrite (Negative) Urine Bilirubin (Negative) Urine Urobilinogen (Negative) Ur Leukocyte Esterase (Negative) Urine WBC (Auto) (0-5) /hpf Urine RBC (Auto) (0-4) /hpf U Hyaline Cast (Auto) (0-5) /lpf U Epithel Cells (Auto) (0-5) /lpf Urine Bacteria (Auto) (Negative) Nasal Influ A H1 2008 PCR Cancelled Adenovirus (PCR) Cancelled B. pertussis DNA (PCR) Cancelled B.parapertussis DNA PCR Cancelled C. pneumoniae DNA (PCR) Cancelled Coronavirus OC43 (PCR) Cancelled Coronavirus HKU1 (PCR) Cancelled Coronavirus 229E (PCR) Cancelled COVID-19 PCR NEGATIVE (Negative) Coronavirus NL63 (PCR) Cancelled Human Metapneumovir PCR Cancelled Influenza A (H1) PCR Cancelled Influenza A (H3) PCR Cancelled Influenza Type A (PCR) Cancelled Influenza A Untype (PCR) Cancelled Influenza Type B (PCR) Cancelled M. pneumoniae (PCR) Cancelled Parainfluenza 1 (PCR) Cancelled Parainfluenza 2 (PCR) Cancelled Parainfluenza 3 (PCR) Cancelled Parainfluenza 4 (PCR) Cancelled RSV (PCR) Cancelled Entero/Rhino (PCR) Cancelled Administered Medications Ioversol (Optiray 320 125ml) 118 ml IV ONCE PRN PRN Reason: Interaction Checking Stop: 01/11/20 17:22 Last Admin: 01/07/20 17:24 Dose: 1 ml Documented by: [id number] Discontinued Medications Acetaminophen (Tylenol) 1,000 mg PO NOW STA Stop: 01/07/20 16:29 Last Admin: 01/07/20 17:45 Dose: 1,000 mg Documented by: [id number] Ceftriaxone Sodium (Rocephin) 1,000 mg in 50 mls @ 100 mls/hr IV NOW STA Stop: 01/07/20 19:05 Last Admin: 01/07/20 19:32 Dose: 100 mls/hr Documented by: [id number] Levofloxacin/Dextrose (Levaquin/D5w) Confirm Administered Dose 750 mg IV .STK- MED ONE Stop: 01/07/20 17:33 Last Admin: 01/07/20 17:45 Dose: 750 mg Documented by: [id number] Discharge Plan Visit Data Chief Complaint: Chest Pain ED Provider: Xavier Crowder Discharge Problem: Sepsis, Hypoxia, Acute dyspnea, Cough, Elevated troponin, Abnormal ECG Forms Stand Alone Forms: [facility] Prescriptions Prescriptions: No Action furosemide [Lasix] 40 mg Tablet 40 mg PO DAILY RF: 0 enalapril maleate [Vasotec] 5 mg Tablet 5 mg PO BID RF: 0 glyburide 5 mg Tablet 5 mg PO BID RF: 0 pravastatin 40 mg Tablet 40 mg PO HS RF: 0 meloxicam 15 mg Tablet 15 mg PO HS RF: 0 metformin 850 mg Tablet 850 mg PO TID RF: 0 aspirin [Aspirin Low Dose] 81 mg Tablet,Delayed Release (Dr/Ec) 81 mg PO QAM RF: 0 tamsulosin [Flomax] 0.4 mg Capsule 0.8 mg PO QPM RF: 0 nitroglycerin [Nitrostat] 0.4 mg Tablet, Sublingual 0.4 mg Sublingual Q5M PRN (Reason: Chest Pain) RF: 0 finasteride [Proscar] 5 mg Tablet 5 mg PO HS RF: 0 metoprolol tartrate 25 mg Tablet 12.5 mg PO BID RF: 0 levalbuterol tartrate [Xopenex HFA] 45 mcg/actuation Hfa Aerosol Inhaler 2 inh INHALATION QID PRN (Reason: Shortness Of Breath) RF: 0 levothyroxine 75 mcg Capsule 75 mcg PO DAILY RF: 0 Serevent Diskus 50 mcg/dose Blister With Device 1 inh INHALATION BID RF: 0 Alvesco 80 mcg/actuation Hfa Aerosol Inhaler 1 puff INHALATION BID RF: 0 Incruse Ellipta 62.5 mcg/actuation Blister With Device 1 inh INHALATION DAILY RF: 0 Discharge Problem: Sepsis Qualifiers: Sepsis type: sepsis due to unspecified organism Sepsis acute organ dysfunction status: unspecified Qualified Code(s): A41.9 - Sepsis, unspecified organism
[2020-01-07 16:12] LABS: Appearance Urine Clear (Clear); Bacteria Urine Automated Negative (Negative); Bilirubin Urine Negative (Negative); Blood Urine 1+ (Negative); Cast Urine Automated 0 /lpf (0-5); Color Urine Yellow; Epithelial Cell Urine Auto 0-5 /lpf (0-5); Glucose Urine UA Negative (Negative); Ketones Urine 1+ (Negative); Leukocyte Esterase Urine Negative (Negative); Nitrite Urine Negative (Negative); Protein Urine 2+ (Negative); RBC Urine Automated 0-4 /hpf (0-4); Specific Gravity Urine 1.017 (1.000-1.030); Urobilinogen Urine Negative (Negative); pH Urine 5.5 (4.5-7.5)
[2020-01-07] MEDS ORDERED: ACETAMINOPHEN 500 MG TAB PO STA (16:28)
[2020-01-07 17:03] LABS: Albumin Level 3.4 gm/dl (3.4-5.0); Calcium 8.4 mg/dl (8.5-10.1); Creatinine Clr Calc Pharmacy 65.3 ml/min; Est GFR (African American) 64.1; Est GFR (Non-African American) 55.3; Magnesium 1.5 mg/dl (1.8-2.4); Potassium 4.6 mmol/L (3.5-5.1)
--- NOTE | 2020-01-07 17:16 | XRay Report ---
XR chest 1V portable HISTORY: 79 years-old Male SEPSIS acute sepsis COMPARISON: Chest radiograph 06/29/2018 TECHNIQUE: Portable AP view of the chest FINDINGS: Cardiac silhouette is enlarged, unchanged. Patient is rotated towards the left. No pneumothorax. Righ t infrahilar opacities are noted. Mild bibasilar opacities suggest probable atelectasis. Mild bluntin g of the left costophrenic angle. Right costophrenic angle is excluded from the [id number]. Degene rative changes of the shoulders and spine. IMPRESSION: 1. Limited exam secondary to positioning 2. Right infrahilar opacities may be projectional or reflect airspace disease. 3. Probable trace left pleural effusion. 4. Cardiomegaly. ACT 112: Negative or not required by law. The above report was generated using voice recognition software. It may contain grammatical, syntax o r spelling errors. Electronically signed by: David Lynch M.D. 01/07/2020 5:14 PM
[2020-01-07 17:22] LABS: Albumin Globulin Ratio 0.9 (0.9-2); Bilirubin,Total 0.6 mg/dl (0.2-1); Total Protein 7.4 gm/dl (6.4-8.2); Troponin I 0.514 ng/ml (0-0.045)
[2020-01-07] MEDS ORDERED: OPTIRAY 320 125ml IV PRN (17:23)
[2020-01-07] MEDS ORDERED: LEVAQUIN 750 MG/150 ML IV ONE (17:32)
[2020-01-07] MEDS ORDERED: D5W IV ONE (17:32)
[2020-01-07 17:39] LABS: Mean Corpuscular Hgb Conc 32.5 g/dL (32-36)
[2020-01-07 17:46] LABS: Hematocrit (blood only) 49.8 % (42-52); Hemoglobin 16.2 g/dL (14.0-18.0); Mean Corpuscular Hemoglobin 26.9 pg (25-34); Mean Corpuscular Volume 82.6 fL (80-100); RDW Coefficient of Variation 15.6 % (11.5-14.5); RDW Standard Deviation 46.9 fL (36.4-46.3); Red Blood Count 6.03 M/uL (4.7-6.1); White Blood Count 24.92 K/uL (4.8-10.8)
[2020-01-07 17:49] LABS: INR 1.1 (0.9-1.1); Partial Thromboplastin Ratio 0.9; Partial Thromboplastin Time 25.4 Seconds (21.0-31.0); Prothrombin Time 11.3 Seconds (9.0-12.0)
[2020-01-07 18:24] LABS: Mean Platelet Volume 11.5 fL (7.4-10.4); Platelet Count 142 K/uL (130-400)
--- NOTE | 2020-01-07 18:24 | CT Scan Report ---
CT angio chest PE protocol CT DOSE: 722.96 mGycm HISTORY: 79 years-old Male with PE. Acute chest pain with shortness of breath TECHNIQUE: Multiple CTA images of the chest were obtained after the intravenous administration of 118 ml Optiray 320. Coronal and sagittal MIPS were obtained from the axial data set and were submitted for review. All measurements were obtained according to NASCET criteria. A dose lowering technique w as utilized adhering to the principles of ALARA. COMPARISON: Chest radiograph of same day, CTA chest 12/01/2013 FINDINGS: CTA: Mild cardiomegaly. No pericardial effusion. Coronary artery calcifications. No thoracic aortic aneury sm or dissection. Mixed plaque the thoracic aorta with patency of the imaged great vessels. The pulmo nary arterial tree is opacified to the level of the subsegmental branches and demonstrates no filling defects to suggest thromboembolic disease. CT CHEST: No thyroid nodule identified. No pathologically enlarged lymph nodes. Mildly prominent subcarinal lym ph node is likely physiologic. Trace pleural effusions. No pneumothorax. Respiratory motion artifact limits evaluation of the lung parenchyma. Mild emphysema. Mild dependent bibasilar predominant ground glass and linear consolidative opacities favor atelectasis. No airspace consolidation typical for pne umonia. Bronchial wall thickening suggests chronic bronchitis. The central airways are patent. Left hepatic lobe hypodensities. Represent benign cysts on the study from 2013 100 suboptimally evalu ated on today's study. Unremarkable soft tissues. Degenerative changes of the shoulders and spine. IMPRESSION: 1. Cardiomegaly without pulmonary edema. 2. Emphysema. 3. Trace pleural effusions with mild dependent bibasilar atelectasis. 4. No evidence of pulmonary thromboembolic disease. ACT 112: Negative or not required by law. The above report was generated using voice recognition software. It may contain grammatical, syntax o r spelling errors. Electronically signed by: David Lynch M.D. 01/07/2020 6:22 PM
[2020-01-07 18:26] LABS: Basophils # (auto) 0.02 K/uL (0-0.2); Basophils % (auto) 0.1 %; Eosinophils # (auto) 0.06 K/uL (0-0.5); Eosinophils % (auto) 0.2 %; Immature Granulocytes # (auto) 0.13 K/uL (0.00-0.02); Immature Granulocytes % (auto) 0.5 %; Lymphocytes # (auto) 0.53 K/uL (1.2-3.4); Lymphocytes % (auto) 2.1 %; Monocytes # (auto) 0.66 K/uL (0.11-0.59); Monocytes % (auto) 2.6 %; Neutrophils # (auto) 23.52 K/uL (1.4-6.5); Neutrophils % (auto) 94.5 %; Platelet Estimate Decreased (Normal)
[2020-01-07] MEDS ORDERED: cefTRIAXone SODIUM 1,000 MG/50 ML BAG IV STA (18:36)
[2020-01-07] MEDS ORDERED: MAGNESIUM SULFATE / D5W 1 GM/100 ML BAG IV STA (19:58)
[2020-01-07] MEDS ORDERED: SODIUM CHLORIDE 0.9% 1000ML 1,000 ML IV ONE (20:01)
[2020-01-07] MEDS ORDERED: AZITHROMYCIN 500 MG in DEXTROSE 5% 250 ML IV ONE (20:36)
--- NOTE | 2020-01-07 20:39 | History & Physical Report ---
Date of Service January 07, 2020 Assessment & Plan (1) SIRS (systemic inflammatory response syndrome): Patient presents with fever/chills, tachycardia, tachypnea, hypoxia, significant leukocytosis, with cough and shortness of breath. With mild headache but no neck pain or meningismus small signs. Although chest imaging is not showing clearly defined pneumonia, suspect a pulmonary source of his infection given his productive cough and hypoxia. Urinalysis without evidence of infection, no abdominal pains. COVID-19 test is negative, viral respiratory panel bio fire is negative. No cellulitis noted or signs/symptoms of bone/joint infection. -Admit to telemetry -Blood cultures drawn-will follow -Hydrate with IV fluids overnight and repeat chest x-ray in the morning to see if a pneumonia fluffs out -Will give empiric antibiotic coverage for community-acquired pneumonia with Rocephin and azithromycin -Check Lyme titer although seems less likely as he is in care home and has minimal outdoor exposure -Will check a procalcitonin to see if points towards bacterial infection -Acetaminophen as needed for fever and headache -Follow CBC (2) Hypoxia: With acute respiratory failure with hypoxia CT angiogram of the chest negative for PE or significant pneumonia as above With a history of COPD and with productive cough-could be from respiratory infection versus COPD exacerbation -Supplemental O2 to keep pulse ox greater than 92% -Levalbuterol inhaler as needed -Continue home COPD inhalers -Will not add on steroids at this time given possibility of bacterial infection and sepsis (3) Cough: As noted above (4) Elevated troponin: Troponin mildly elevated at 0.5 and had atypical right-sided chest pain which may be related to developing pulmonary infection ECG prehospital showed ST depressions in lateral leads ECG here does not show any ST depressions and he is now chest pain-free -Check resting echocardiogram for wall motion abnormalities -Serial troponins -Follow on telemetry (5) Coronary artery disease: With a history of WI with stents placed in 2002 at [facility] -Continue home aspirin, metoprolol, pravastatin -Holding home enalapril for low blood pressures (6) Hypomagnesemia: Magnesium low at 1.5 on admission -Give 1 g of IV magnesium -Follow magnesium levels in the morning (7) Diabetes mellitus: On metformin and glyburide as an outpatient -Hold home meds and give NovoLog sliding scale May need to add on Lantus Check hemoglobin A1c in the morning (8) HTN (hypertension), benign: Blood pressures dropped low upon admission likely secondary to Sirs/develo ping sepsis -Bolused with IV fluid and will continue IV fluids -Hold home enalapril and home Lasix -Okay to continue metoprolol given elevated troponin and history of WI -Follow blood pressures (9) COPD (chronic obstructive pulmonary disease): With COPD as per patient secondary to secondhand smoke exposure, was never a smoker -Continue home inhalers -Levalbuterol PRN shortness of breath No acute exacerbation (10) BPH (benign prostatic hyperplasia): No acute issues -Continue home tamsulosin and finasteride (11) Carotid artery stenosis: With a history of right CEA -Continue home aspirin and pravastatin (12) Edema: Patient reports his lower extremity edema in the feet and ankles has been worsening over the last few months -Holding home Lasix for low blood pressure and sepsis -Checking echo to see if has reduced LV function -Follow I's and O's, daily weights (13) DVT prophylaxis: Lovenox SQ, TAMANNA hose Disposition-admit to telemetry, expected least a 2 midnight stay Eventually back to care home History of Present Illness Chief Complaint: Chills, shortness of breath, cough, chest pain Primary Care Provider: CHEMO Darden This patient is a 79-year-old male prisoner from [facility] with a history of CAD status post stents, COPD, DM 2, HTN, BPH, and carotid artery stenosis, who presents with shaking chills that started at 3:00 today. He reports having a cough productive of yellow sputum and shortness of breath today as well. He was having some right-sided chest pain that initially went away with nitroglycerin, but after it came back, did not go away with a repeat dose of nitroglycerin. He did have one episode of nausea with vomiting that was nonbloody this afternoon. EMS was called and when they found him he was hypoxic at 84% on room air and was placed on a nonrebreather. He was also noted to have ST depressions in the lateral leads on a prehospital EKG but was chest pain-free when he arrived at the ER. He was noted to be febrile at 39.5 C, tachycardic, tachypneic, and hypoxic. He had a WBC count significantly elevated at 25, a mildly elevated troponin at 0.5, low magnesium at 1.5, lactate was normal, urinalysis without evidence of infection. A chest x-ray showed possible right infrahilar opacities that may reflect airspace disease and a probable trace left pleural effusion. A CT angiogram of the chest was then performed to rule out PE-this was negative for PE, but showed emphysema, cardiomegaly without pulmonary edema, and trace pleural effusions with mild dependent bibasilar atelectasis without evidence of pneumonia. He was given IV Levaquin and IV ceftriaxone, as well as a dose of acetaminophen in the ER. He was weaned off the nonrebreather to 4 L nasal cannula when I saw him and he was feeling a bit better. ROS: Positive for generalized headache, no lightheadedness, no runny nose or sore throat. With chest pain shortness of breath as per HPI, with cough as per HPI. With nausea/vomiting x1, no diarrhea or constipation, no abdominal pain. He has some intermittent dysuria which is chronic. No skin rashes or wounds on his body. He ventures outside for about an hour each morning early in the day when it is not too hot-the care home guards at the bedside maintained that there are no deer in that area-the only animals that come into the outdoor area would be an occasional skunk or possum. Allergies Allergy/AdvReac Type Severity Reaction Status Date / Time No Known Allergies Allergy Unverified 01/07/20 16:16 Home Medications Home Medications Medication Instructions Recorded Confirmed Type aspirin [Aspirin Low Dose] 81 mg PO QAM 06/29/18 01/07/20 History enalapril maleate [Vasotec] 5 mg PO BID 06/29/18 01/07/20 History finasteride [Proscar] 5 mg PO HS 06/29/18 01/07/20 History furosemide [Lasix] 40 mg PO DAILY 06/29/18 01/07/20 History glyburide 5 mg PO BID 06/29/18 01/07/20 History levalbuterol tartrate [Xopenex HFA] 2 inh INHALATION QID PRN 06/29/18 01/07/20 History levothyroxine 75 mcg PO DAILY 06/29/18 01/07/20 History meloxicam 15 mg PO HS 06/29/18 01/07/20 History metformin 850 mg PO TID 06/29/18 01/07/20 History metoprolol tartrate 12.5 mg PO BID 06/29/18 01/07/20 History nitroglycerin [Nitrostat] 0.4 mg SUBLINGUAL Q5M PRN 06/29/18 01/07/20 History pravastatin 40 mg PO HS 06/29/18 01/07/20 History tamsulosin [Flomax] 0.8 mg PO QPM 06/29/18 01/07/20 History ciclesonide [Alvesco] 1 puff INHALATION BID 01/07/20 01/07/20 History salmeterol [Serevent Diskus] 1 inh INHALATION BID 01/07/20 01/07/20 History umeclidinium [Incruse Ellipta] 1 inh INHALATION DAILY 01/07/20 01/07/20 History Past Med/Surg History Medical History BPH (benign prostatic hyperplasia) Carotid artery stenosis COPD (chronic obstructive pulmonary disease) Coronary artery disease (Chronic) Diabetes mellitus Heart attack (Resolved) HTN (hypertension), benign Hypomagnesemia (Acute) Orthostatic hypotension (Resolved) Prostatitis, acute (Resolved) Syncope (Acute) Urinary retention (Resolved) Surgical History H/O cardiac catheterization (Resolved) H/O carotid endarterectomy H/O percutaneous transluminal coronary angioplasty (Resolved) Stented coronary artery (Chronic) Family History Other Family history non-contributory Social History (Updated 01/07/20 @ 21:44 by Megan Prasad MD) Smoking Status: Never smoker Second Hand Exposure: Yes (From his brother); Preferred Language: Kuwaiti Communication Ability: Effective Visual Impairment: No Limitations Hearing Ability: Normal Current Living Situation: Other Current Living Situation Comment: [facility] Feels Safe at Home: Yes Review of Systems Review of Systems: All systems reviewed & are unremarkable except as noted in HPI & below Physical Exam Constitutional: WD/WN, vitals as above + ill appearing and + obese Eyes: PERRL, conjunctivae normal, anicteric sclerae ENMT: Nose: no external nose abnormality Mouth: + oral mucosal abnormality (Dry mucous membranes) Neck: trachea midline, no thyromegaly Respiratory: Auscultation: + diminished lung sounds (Throughout); no crackles, no rhonchi and no wheezes Cardiovascular: Rate/Rhythm: regular rate and regular rhythm Heart Sounds: no murmur Extremities: + edema (1+ pitting edema of the legs to the mid tibia bilaterally) Chest (Breasts): Chest: normal inspection of chest Gastrointestinal (Abdomen): Inspection/Auscultation: normal bowel sounds and + visible herniation (Large incisional hernia in the left side of abdomen); + abdomen abnormal to inspection (Very large incisional scar from the left lower quadrant all the way to the left flank) and abdomen not distended Percussion/Palpation: abdomen soft; abdomen nontender, no guarding and abdomen not rigid Musculoskeletal: Extremities: extremities normal to inspection; no cyanosis an d no clubbing Skin: no rashes, warm and dry Neurologic: moves all extremities and awake; no focal motor deficits Psychiatric: A+Ox3, euthymic affect Lymphatic: no lymphedema Results & Data Results & Data ([facility]) Vital Signs (Past 12 Hours) Vital Signs Temp Pulse Resp BP Pulse Ox 01/07/20 20:15 102 H 17 01/07/20 20:00 94 H 20 91/55 L 94 01/07/20 19:45 106 H 29 H 01/07/20 19:31 102 H 27 H 97/55 L 96 01/07/20 19:30 101 H 26 H 96 01/07/20 19:15 101 H 20 01/07/20 19:00 105 H 18 01/07/20 18:45 114 H 22 94 01/07/20 18:31 95 01/07/20 18:00 105 H 21 93 01/07/20 17:47 99 01/07/20 17:45 111 H 24 92 01/07/20 17:40 38.5 C H 01/07/20 17:30 116 H 28 H 143/77 H 99 01/07/20 17:15 117 H 16 01/07/20 17:00 114 H 23 136/76 99 01/07/20 16:45 122 H 23 98 01/07/20 16:30 118 H 25 H 161/91 H 99 01/07/20 16:15 115 H 20 99 01/07/20 16:00 117 H 23 152/85 H 99 01/07/20 15:41 39.5 C H 120 H 24 158/83 H 99 Laboratory Results 01/07/20 01/07/20 01/07/20 Range/Units 19:43 19:43 17:39 WBC RBC Hgb Hct MCV MCH MCHC RDW Std Deviation RDW Coeff of Brigid Plt Count MPV Immature Gran % (Auto) Neut % (Auto) Lymph % (Auto) Lipscomb % (Auto) Eos % (Auto) Baso % (Auto) Neut # (Auto) Lymph # (Auto) Lipscomb # (Auto) Eos # (Auto) Baso # (Auto) Immature Gran # (Auto) Absolute Nucleated RBC Nucleated RBC % (auto) Neutrophils % (Manual) Band Neutrophils % Lymphocytes % (Manual) Prolymphocyte % Reactive Lymphs % (Man) Monocytes % (Manual) Eosinophils % (Manual) Basophils % (Manual) Metamyelocytes % (Man) Myelocytes % (Man) Promyelocytes % (Man) Blast Cells % (Manual) Plasma Cell % (Manual) Other Cells % Nucleated RBC % Neutrophils # (Manual) Band Neutrophils # Total Absolute Neuts Lymphocytes # (Manual) Prolymphocyte # Reactive Lymphs # Total Abs Lymphocytes Monocytes # (Manual) Eosinophils # (Manual) Basophils # (Manual) Metamyelocytes # (Man) Myelocytes # (Manual) Promyelocytes # (Man) Blast Cells # (Man) Plasma Cell # (Manual) Other Cells # Nucleated RBCs # (Man) Hypersegmented Neuts Hyposegmented Neuts Hypogranular Neuts Large Granular Lymphs # Lrg Granular Lymphs Hairy Cells Smudge Cells Toxic Granulation Toxic Vacuolation Dohle Bodies Sherie Rods Platelet Estimate Hypogranular Platelets Clumped Platelets Giant Platelets Platelet Satelliting RBC Morphology Polychromasia Hypochromasia Poikilocytosis Basophilic Stippling Anisocytosis Microcytosis Macrocytosis Spherocytes Pappenheimer Bodies Sickle Cells Target Cells Tear Drop Cells Ovalocytes Stomatocytes Love-[place]rev[place] Bodies Echinocytes Acanthocytes (Spur) Rouleaux RBC Agglutinates Schistocytes RBC Morph Comment Sezary Cell PT INR APTT PTT Ratio Sodium (136-145) mmol/L Potassium (3.5-5.1) mmol/L Chloride (98-107) mmol/L Carbon Dioxide (21-32) mmol/L Anion Gap (3-11) BUN (7-18) mg/dl Creatinine (0.6-1.4) mg/dl Est Cr Clr Drug Dosing ml/min Est GFR ( Amer) Est GFR (Non-Af Amer) BUN/Creatinine Ratio (10-20) Glucose (70-99) mg/dl Lactate (0.4-2.0) mmol/L Calcium (8.5-10.1) mg/dl Magnesium (1.8-2.4) mg/dl Total Bilirubin (0.2-1) mg/dl AST (15-37) U/L ALT (12-78) U/L Alkaline Phosphatase (45-117) U/L Troponin I (0-0.045) ng/ml Total Protein (6.4-8.2) gm/dl Albumin (3.4-5.0) gm/dl Globulin (2.5-4.0) gm/dl Albumin/Globulin Ratio (0.9-2) Urine Color Urine Appearance (Clear) Urine pH (4.5-7.5) Ur Specific [place] (1.000-1.030) Urine Protein (Negative) Urine Glucose (UA) (Negative) Urine Ketones (Negative) Urine Blood (Negative) Urine Nitrite (Negative) Urine Bilirubin (Negative) Urine Urobilinogen (Negative) Ur Leukocyte Esterase (Negative) Urine WBC (Auto) (0-5) /hpf Urine RBC (Auto) (0-4) /hpf U Hyaline Cast (Auto) (0-5) /lpf U Epithel Cells (Auto) (0-5) /lpf Urine Bacteria (Auto) (Negative) Nasal Influ A H1 2008 PCR Cancelled Adenovirus (PCR) Not Detected Cancelled B. pertussis DNA (PCR) Not Detected Cancelled B.parapertussis DNA PCR Not Detected Cancelled Lyme Disease IgG Ab Lyme Disease IgM Ab C. pneumoniae DNA (PCR) Not Detected Cancelled Coronavirus OC43 (PCR) Not Detected Cancelled Coronavirus HKU1 (PCR) Not Detected Cancelled Coronavirus 229E (PCR) Not Detected Cancelled COVID-19 PCR NEGATIVE (Negative) Coronavirus NL63 (PCR) Not Detected Cancelled Human Metapneumovir PCR Not Detected Cancelled Influenza A (H1) PCR Cancelled Influenza A (H3) PCR Cancelled Influenza Type A (PCR) Not Detected Cancelled Influenza A Untype (PCR) Cancelled Influenza Type B (PCR) Not Detected Cancelled M. pneumoniae (PCR) Not Detected Cancelled Parainfluenza 1 (PCR) Not Detected Cancelled Parainfluenza 2 (PCR) Not Detected Cancelled Parainfluenza 3 (PCR) Not Detected Cancelled Parainfluenza 4 (PCR) Not Detected Cancelled RSV (PCR) Not Detected Cancelled Entero/Rhino (PCR) Not Detected Cancelled 01/07/20 01/07/20 01/07/20 Range/Units 17:21 17:21 16:30 WBC 24.92 H RBC 6.03 Hgb 16.2 Hct 49.8 MCV 82.6 MCH 26.9 MCHC 32.5 RDW Std Deviation 46.9 H RDW Coeff of Brigid 15.6 H Plt Count 142 MPV 11.5 H Immature Gran % (Auto) 0.5 Neut % (Auto) 94.5 Lymph % (Auto) 2.1 Lipscomb % (Auto) 2.6 Eos % (Auto) 0.2 Baso % (Auto) 0.1 Neut # (Auto) 23.52 H Lymph # (Auto) 0.53 L Lipscomb # (Auto) 0.66 H Eos # (Auto) 0.06 Baso # (Auto) 0.02 Immature Gran # (Auto) 0.13 H Absolute Nucleated RBC Nucleated RBC % (auto) Neutrophils % (Manual) Band Neutrophils % Lymphocytes % (Manual) Prolymphocyte % Reactive Lymphs % (Man) Monocytes % (Manual) Eosinophils % (Manual) Basophils % (Manual) Metamyelocytes % (Man) Myelocytes % (Man) Promyelocytes % (Man) Blast Cells % (Manual) Plasma Cell % (Manual) Other Cells % Nucleated RBC % Neutrophils # (Manual) Band Neutrophils # Total Absolute Neuts Lymphocytes # (Manual) Prolymphocyte # Reactive Lymphs # Total Abs Lymphocytes Monocytes # (Manual) Eosinophils # (Manual) Basophils # (Manual) Metamyelocytes # (Man) Myelocytes # (Manual) Promyelocytes # (Man) Blast Cells # (Man) Plasma Cell # (Manual) Other Cells # Nucleated RBCs # (Man) Hypersegmented Neuts Hyposegmented Neuts Hypogranular Neuts Large Granular Lymphs # Lrg Granular Lymphs Hairy Cells Smudge Cells Toxic Granulation Toxic Vacuolation Dohle Bodies Sherie Rods Platelet Estimate Decreased L Hypogranular Platelets Clumped Platelets Giant Platelets Platelet Satelliting RBC Morphology Polychromasia Hypochromasia Poikilocytosis Basophilic Stippling Anisocytosis Microcytosis Macrocytosis Spherocytes Pappenheimer Bodies Sickle Cells Target Cells Tear Drop Cells Ovalocytes Stomatocytes Love-[place]revig [place] Bodies Echinocytes Acanthocytes (Spur) Rouleaux RBC Agglutinates Schistocytes RBC Morph Comment Sezary Cell PT 11.3 INR 1.1 APTT 25.4 PTT Ratio 0.9 Sodium (136-145) mmol/L Potassium (3.5-5.1) mmol/L Chloride (98-107) mmol/L Carbon Dioxide (21-32) mmol/L Anion Gap (3-11) BUN (7-18) mg/dl Creatinine (0.6-1.4) mg/dl Est Cr Clr Drug Dosing ml/min Est GFR ( Amer) Est GFR (Non-Af Amer) BUN/Creatinine Ratio (10-20) Glucose (70-99) mg/dl Lactate (0.4-2.0) mmol/L Calcium (8.5-10.1) mg/dl Magnesium (1.8-2.4) mg/dl Total Bilirubin (0.2-1) mg/dl AST (15-37) U/L ALT (12-78) U/L Alkaline Phosphatase (45-117) U/L Troponin I (0-0.045) ng/ml Total Protein (6.4-8.2) gm/dl Albumin (3.4-5.0) gm/dl Globulin (2.5-4.0) gm/dl Albumin/Globulin Ratio (0.9-2) Urine Color Urine Appearance (Clear) Urine pH (4.5-7.5) Ur Specific [place] (1.000-1.030) Urine Protein (Negative) Urine Glucose (UA) (Negative) Urine Ketones (Negative) Urine Blood (Negative) Urine Nitrite (Negative) Urine Bilirubin (Negative) Urine Urobilinogen (Negative) Ur Leukocyte Esterase (Negative) Urine WBC (Auto) (0-5) /hpf Urine RBC (Auto) (0-4) /hpf U Hyaline Cast (Auto) (0-5) /lpf U Epithel Cells (Auto) (0-5) /lpf Urine Bacteria (Auto) (Negative) Nasal Influ A H1 2009 PCR Adenovirus (PCR) B. pertussis DNA (PCR) B.parapertussis DNA PCR Lyme Disease IgG Ab Pending Lyme Disease IgM Ab Pending C. pneumoniae DNA (PCR) Coronavirus OC43 (PCR) Coronavirus HKU1 (PCR) Coronavirus 229E (PCR) COVID-19 PCR (Negative) Coronavirus NL63 (PCR) Human Metapneumovir PCR Influenza A (H1) PCR Influenza A (H3) PCR Influenza Type A (PCR) Influenza A Untype (PCR) Influenza Type B (PCR) M. pneumoniae (PCR) Parainfluenza 1 (PCR) Parainfluenza 2 (PCR) Parainfluenza 3 (PCR) Parainfluenza 4 (PCR) RSV (PCR) Entero/Rhino (PCR) 01/07/20 01/07/20 01/07/20 Range/Units 16:30 16:30 16:30 WBC RBC Hgb Hct MCV MCH MCHC RDW Std Deviation RDW Coeff of Brigid Plt Count MPV Immature Gran % (Auto) Neut % (Auto) Lymph % (Auto) Lipscomb % (Auto) Eos % (Auto) Baso % (Auto) Neut # (Auto) Lymph # (Auto) Lipscomb # (Auto) Eos # (Auto) Baso # (Auto) Immature Gran # (Auto) Absolute Nucleated RBC Nucleated RBC % (auto) Neutrophils % (Manual) Band Neutrophils % Lymphocytes % (Manual) Prolymphocyte % Reactive Lymphs % (Man) Monocytes % (Manual) Eosinophils % (Manual) Basophils % (Manual) Metamyelocytes % (Man) Myelocytes % (Man) Promyelocytes % (Man) Blast Cells % (Manual) Plasma Cell % (Manual) Other Cells % Nucleated RBC % Neutrophils # (Manual) Band Neutrophils # Total Absolute Neuts Lymphocytes # (Manual) Prolymphocyte # Reactive Lymphs # Total Abs Lymphocytes Monocytes # (Manual) Eosinophils # (Manual) Basophils # (Manual) Metamyelocytes # (Man) Myelocytes # (Manual) Promyelocytes # (Man) Blast Cells # (Man) Plasma Cell # (Manual) Other Cells # Nucleated RBCs # (Man) Hypersegmented Neuts Hyposegmented Neuts Hypogranular Neuts Large Granular Lymphs # Lrg Granular Lymphs Hairy Cells Smudge Cells Toxic Granulation Toxic Vacuolation Dohle Bodies Sherie Rods Platelet Estimate Hypogranular Platelets Clumped Platelets Giant Platelets Platelet Satelliting RBC Morphology Polychromasia Hypochromasia Poikilocytosis Basophilic Stippling Anisocytosis Microcytosis Macrocytosis Spherocytes Pappenheimer Bodies Sickle Cells Target Cells Tear Drop Cells Ovalocytes Stomatocytes Love-Brevig [place] Bodies Echinocytes Acanthocytes (Spur) Rouleaux RBC Agglutinates Schistocytes RBC Morph Comment Sezary Cell PT Cancelled INR Cancelled APTT Cancelled PTT Ratio Cancelled Sodium 139 (136-145) mmol/L Potassium 4.6 (3.5-5.1) mmol/L Chloride 107 (98-107) mmol/L Carbon Dioxide 25 (21-32) mmol/L Anion Gap 7.0 (3-11) BUN 17 (7-18) mg/dl Creatinine 1.24 (0.6-1.4) mg/dl Est Cr Clr Drug Dosing 65.3 ml/min Est GFR ( Amer) 64.1 Est GFR (Non-Af Amer) 55.3 BUN/Creatinine Ratio 14.0 (10-20) Glucose 132 H (70-99) mg/dl Lactate 1.9 (0.4-2.0) mmol/L Calcium 8.4 L (8.5-10.1) mg/dl Magnesium 1.5 L (1.8-2.4) mg/dl Total Bilirubin 0.6 (0.2-1) mg/dl AST 20 (15-37) U/L ALT 23 (12-78) U/L Alkaline Phosphatase 57 (45-117) U/L Troponin I 0.514 H* (0-0.045) ng/ml Total Protein 7.4 (6.4-8.2) gm/dl Albumin 3.4 (3.4-5.0) gm/dl Globulin 4.0 (2.5-4.0) gm/dl Albumin/Globulin Ratio 0.9 (0.9-2) Urine Color Urine Appearance (Clear) Urine pH (4.5-7.5) Ur Specific [place] (1.000-1.030) Urine Protein (Negative) Urine Glucose (UA) (Negative) Urine Ketones (Negative) Urine Blood (Negative) Urine Nitrite (Negative) Urine Bilirubin (Negative) Urine Urobilinogen (Negative) Ur Leukocyte Esterase (Negative) Urine WBC (Auto) (0-5) /hpf Urine RBC (Auto) (0-4) /hpf U Hyaline Cast (Auto) (0-5) /lpf U Epithel Cells (Auto) (0-5) /lpf Urine Bacteria (Auto) (Negative) Nasal Influ A H1 2009 PCR Adenovirus (PCR) B. pertussis DNA (PCR) B.parapertussis DNA PCR Lyme Disease IgG Ab Lyme Disease IgM Ab C. pneumoniae DNA (PCR) Coronavirus OC43 (PCR) Coronavirus HKU1 (PCR) Coronavirus 229E (PCR) COVID-19 PCR (Negative) Coronavirus NL63 (PCR) Human Metapneumovir PCR Influenza A (H1) PCR Influenza A (H3) PCR Influenza Type A (PCR) Influenza A Untype (PCR) Influenza Type B (PCR) M. pneumoniae (PCR) Parainfluenza 1 (PCR) Parainfluenza 2 (PCR) Parainfluenza 3 (PCR) Parainfluenza 4 (PCR) RSV (PCR) Entero/Rhino (PCR) 01/07/20 01/07/20 Range/Units 16:30 15:50 WBC Cancelled RBC Cancelled Hgb Cancelled Hct Cancelled MCV Cancelled MCH Cancelled MCHC Cancelled RDW Std Deviation Cancelled RDW Coeff of Brigid Cancelled Plt Count Cancelled MPV Cancelled Immature Gran % (Auto) Cancelled Neut % (Auto) Cancelled Lymph % (Auto) Cancelled Lipscomb % (Auto) Cancelled Eos % (Auto) Cancelled Baso % (Auto) Cancelled Neut # (Auto) Cancelled Lymph # (Auto) Cancelled Lipscomb # (Auto) Cancelled Eos # (Auto) Cancelled Baso # (Auto) Cancelled Immature Gran # (Auto) Cancelled Absolute Nucleated RBC Cancelled Nucleated RBC % (auto) Cancelled Neutrophils % (Manual) Cancelled Band Neutrophils % Cancelled Lymphocytes % (Manual) Cancelled Prolymphocyte % Cancelled Reactive Lymphs % (Man) Cancelled Monocytes % (Manual) Cancelled Eosinophils % (Manual) Cancelled Basophils % (Manual) Cancelled Metamyelocytes % (Man) Cancelled Myelocytes % (Man) Cancelled Promyelocytes % (Man) Cancelled Blast Cells % (Manual) Cancelled Plasma Cell % (Manual) Cancelled Other Cells % Cancelled Nucleated RBC % Cancelled Neutrophils # (Manual) Cancelled Band Neutrophils # Cancelled Total Absolute Neuts Cancelled Lymphocytes # (Manual) Cancelled Prolymphocyte # Cancelled Reactive Lymphs # Cancelled Total Abs Lymphocytes Cancelled Monocytes # (Manual) Cancelled Eosinophils # (Manual) Cancelled Basophils # (Manual) Cancelled Metamyelocytes # (Man) Cancelled Myelocytes # (Manual) Cancelled Promyelocytes # (Man) Cancelled Blast Cells # (Man) Cancelled Plasma Cell # (Manual) Cancelled Other Cells # Cancelled Nucleated RBCs # (Man) Cancelled Hypersegmented Neuts Cancelled Hyposegmented Neuts Cancelled Hypogranular Neuts Cancelled Large Granular Lymphs Cancelled # Lrg Granular Lymphs Cancelled Hairy Cells Cancelled Smudge Cells Cancelled Toxic Granulation Cancelled Toxic Vacuolation Cancelled Dohle Bodies Cancelled Sherie Rods Cancelled Platelet Estimate Cancelled Hypogranular Platelets Cancelled Clumped Platelets Cancelled Giant Platelets Cancelled Platelet Satelliting Cancelled RBC Morphology Cancelled Polychromasia Cancelled Hypochromasia Cancelled Poikilocytosis Cancelled Basophilic Stippling Cancelled Anisocytosis Cancelled Microcytosis Cancelled Macrocytosis Cancelled Spherocytes Cancelled Pappenheimer Bodies Cancelled Sickle Cells Cancelled Target Cells Cancelled Tear Drop Cells Cancelled Ovalocytes Cancelled Stomatocytes Cancelled [place] Bodies Cancelled Echinocytes Cancelled Acanthocytes (Spur) Cancelled Rouleaux Cancelled RBC Agglutinates Cancelled Schistocytes Cancelled RBC Morph Comment Cancelled Sezary Cell Cancelled PT INR APTT PTT Ratio Sodium (136-145) mmol/L Potassium (3.5-5.1) mmol/L Chloride (98-107) mmol/L Carbon Dioxide (21-32) mmol/L Anion Gap (3-11) BUN (7-18) mg/dl Creatinine (0.6-1.4) mg/dl Est Cr Clr Drug Dosing ml/min Est GFR ( Amer) Est GFR (Non-Af Amer) BUN/Creatinine Ratio (10-20) Glucose (70-99) mg/dl Lactate (0.4-2.0) mmol/L Calcium (8.5-10.1) mg/dl Magnesium (1.8-2.4) mg/dl Total Bilirubin (0.2-1) mg/dl AST (15-37) U/L ALT (12-78) U/L Alkaline Phosphatase (45-117) U/L Troponin I (0-0.045) ng/ml Total Protein (6.4-8.2) gm/dl Albumin (3.4-5.0) gm/dl Globulin (2.5-4.0) gm/dl Albumin/Globulin Ratio (0.9-2) Urine Color Yellow Urine Appearance Clear (Clear) Urine pH 5.5 (4.5-7.5) Ur Specific [place] 1.017 (1.000-1.030) Urine Protein 2+ H (Negative) Urine Glucose (UA) Negative (Negative) Urine Ketones 1+ H (Negative) Urine Blood 1+ H (Negative) Urine Nitrite Negative (Negative) Urine Bilirubin Negative (Negative) Urine Urobilinogen Negative (Negative) Ur Leukocyte Esterase Negative (Negative) Urine WBC (Auto) 1-5 (0-5) /hpf Urine RBC (Auto) 0-4 (0-4) /hpf U Hyaline Cast (Auto) 0 (0-5) /lpf U Epithel Cells (Auto) 0-5 (0-5) /lpf Urine Bacteria (Auto) Negative (Negative) Nasal Influ A H1 2009 PCR Adenovirus (PCR) B. pertussis DNA (PCR) B.parapertussis DNA PCR Lyme Disease IgG Ab Lyme Disease IgM Ab C. pneumoniae DNA (PCR) Coronavirus OC43 (PCR) Coronavirus HKU1 (PCR) Coronavirus 229E (PCR) COVID-19 PCR (Negative) Coronavirus NL63 (PCR) Human Metapneumovir PCR Influenza A (H1) PCR Influenza A (H3) PCR Influenza Type A (PCR) Influenza A Untype (PCR) Influenza Type B (PCR) M. pneumoniae (PCR) Parainfluenza 1 (PCR) Parainfluenza 2 (PCR) Parainfluenza 3 (PCR) Parainfluenza 4 (PCR) RSV (PCR) Entero/Rhino (PCR) Diagnostic Findings Chest x-ray image personally reviewed by me and agree with the following report: XR chest 1V portable HISTORY: 79 years-old Male SEPSIS acute sepsis COMPARISON: Chest radiograph 06/29/2018 TECHNIQUE: Portable AP view of the chest FINDINGS: Cardiac silhouette is enlarged, unchanged. Patient is rotated towards the left. No pneumothorax. Right infrahilar opacities are noted. Mild bibasilar opacities suggest probable atelectasis. Mild blunting of the left costophrenic angle. Right costophrenic angle is excluded from the [id number]. Degenerative changes of the shoulders and spine. IMPRESSION: 1. Limited exam secondary to positioning 2. Right infrahilar opacities may be projectional or reflect airspace disease. 3. Probable trace left pleural effusion. 4. Cardiomegaly. Chest CT angiogram images personally reviewed by me and agree with following report: FINDINGS: CTA: Mild cardiomegaly. No pericardial effusion. Coronary artery calcifications. No thoracic aortic aneurysm or dissection. Mixed plaque the thoracic aorta with patency of the imaged great vessels. The pulmonary arterial tree is opacified to the level of the subsegmental branches and demonstrates no filling defects to suggest thromboembolic disease. CT CHEST: No thyroid nodule identified. No pathologically enlarged lymph nodes. Mildly prominent subcarinal lymph node is likely physiologic. Trace pleural effusions. No pneumothorax. Respiratory motion artifact limits evaluation of the lung parenchyma. Mild emphysema. Mild dependent bibasilar predominant groundglass and linear consolidative opacities favor atelectasis. No airspace consolidation typical for pneumonia. Bronchial wall thickening suggests chronic bronchitis. The central airways are patent. Left hepatic lobe hypodensities. Represent benign cysts on the study from 2013 100 suboptimally evaluated on today's study. Unremarkable soft tissues. Degenerative changes of the shoulders and spine. IMPRESSION: 1. Cardiomegaly without pulmonary edema. 2. Emphysema. 3. Trace pleural effusions with mild dependent bibasilar atelectasis. 4. No evidence of pulmonary thromboembolic disease. ECG Additional Comments: ECG with sinus tachycardia with rate 125, left axis deviation, old anterior infarct, no ischemic changes Code Status & VTE Plan VTE Prophylaxis Plan VTE Prophylaxis will be ordered: Yes PG Care Time/CCT Total # of Minutes Spent Total Time Spent with Patient: Total time spent is greater than 50% in coordination of care (as documented) at patient's floor/unit and/or counseling patient: Coding Level of Care Code 56356 Initial Inpt Care Lvl 3 Diagnoses SIRS (systemic inflammatory response syndrome) R65.10 Hypoxia R09.02 Cough R05 Elevated troponin R79.89 Coronary artery disease I25.10 Hypomagnesemia E83.42 Diabetes mellitus E11.9 HTN (hypertension), benign I10 COPD (chronic obstructive pulmonary disease) J44.9 BPH (benign prostatic hyperplasia) N40.0 Carotid artery stenosis I65.29 Edema R60.9 DVT prophylaxis Z29.9
[2020-01-07] MEDS ORDERED: SODIUM CHLORIDE 0.9% 1000ML 1,000 ML IV SCH (21:30)
[2020-01-07 21:41] LABS: Adenovirus PCR Not Detected (NotDetected); Bordetella parapertussis PCR Not Detected (NotDetected); Bordetella pertussis PCR Not Detected (NotDetected); Chlamydia pneumoniae PCR Not Detected (NotDetected); Coronavirus 229E PCR Not Detected (NotDetected); Coronavirus HKU1 PCR Not Detected (NotDetected); Coronavirus NL63 PCR Not Detected (NotDetected); Coronavirus OC43PCR Not Detected (NotDetected); Human Metapneumovirus PCR Not Detected (NotDetected); Influenza A PCR Not Detected (NotDetected); Influenza B PCR Not Detected (NotDetected); Mycoplasma pneumoniae PCR Not Detected (NotDetected); Parainfluenza Virus 1 PCR Not Detected (NotDetected); Parainfluenza Virus 2 PCR Not Detected (NotDetected); Parainfluenza Virus 3 PCR Not Detected (NotDetected); Parainfluenza Virus 4 PCR Not Detected (NotDetected); Respiratory Syncytial VirusPCR Not Detected (NotDetected); Rhinovirus/Enterovirus PCR Not Detected (NotDetected)
[2020-01-07 21:58] LABS: Lyme Ab IgG w/WB Rflx Negative (Negative); Lyme Ab IgM w/WB Rflx Negative (Negative)
[2020-01-07] MEDS ORDERED: NITROGLYCERIN SL 0.4 MG/TAB TAB SL PRN (22:24)
[2020-01-07] MEDS ORDERED: LEVALBUTEROL TARTRATE 15 GM HFA.AER.AD INH PRN (22:24)
[2020-01-07] MEDS ORDERED: GLUCOSE 40% GEL 15 GM TUBE PO PRN (22:24)
[2020-01-07] MEDS ORDERED: ALUMINUM/MAGNESIUM SUSP 30 ML UDC PO PRN (22:24)
[2020-01-07] MEDS ORDERED: GLUCAGON FOR INJ 1 MG VIAL SQ PRN (22:24)
[2020-01-07] MEDS ORDERED: DEXTROSE 50% 50 ML SYRINGE IV PRN (22:24)
[2020-01-07] MEDS ORDERED: ENOXAPARIN INJ 40 MG/0.4 ML SYR SQ SCH (22:24)
[2020-01-07] MEDS ORDERED: CARBOHYDRATES FOR HYPOGLYCEMIA PO PRN (22:24)
[2020-01-07] MEDS ORDERED: POLYETHYLENE (MIRALAX) 17 GM PACK PO PRN (22:24)
[2020-01-07] MEDS ORDERED: GLUCOSE 10 TABS/TUBE PO PRN (22:24)
[2020-01-07] MEDS ORDERED: ONDANSETRON INJ 2 MG/ML 2 ML VIAL IV PRN (22:24)
[2020-01-07] MEDS: TAMSULOSIN HCL 0.4 MG CAP PO SCH (23:40)
[2020-01-07] MEDS: MELOXICAM 7.5 MG TAB PO SCH (23:40)
[2020-01-07] MEDS: PRAVASTATIN SOD 40 MG TAB PO SCH (23:40)
[2020-01-07] MEDS: FINASTERIDE 5 MG TAB PO SCH (23:40)
[2020-01-07] MEDS: METOPROLOL TARTRATE 25 MG TAB PO SCH (23:41)
[2020-01-07] MEDS: INSULIN ASPART 100 UNITS/ML 3 ML PEN SC SCH (23:44)
[2020-01-08] MEDS ORDERED: SODIUM CHLORIDE 0.9% 1000ML 500 ML IV ONE (00:42)
[2020-01-08] MEDS ORDERED: LEVOFLOXACIN/D5W 750 MG/150 ML BAG IV SCH (06:00)
[2020-01-08] MEDS: LEVOTHYROXINE SODIUM 75 MCG TABLET PO SCH (06:10)
[2020-01-08] MEDS: ACETAMINOPHEN 325 MG TAB PO PRN (06:12)
--- NOTE | 2020-01-08 07:08 | XRay Report ---
XR chest 1V portable CLINICAL HISTORY: fever,assess for PNA dyspnea COMPARISON STUDY: 01/07/2020 FINDINGS: Stable cardiomegaly. Mild prominence of the basilar interstitial markings. Mid and upper imelda ngs are clear. IMPRESSION: Mild stable cardiomegaly. Improved aeration lung bases with mild residual interstitial p rominence. ACT 112: Negative or not required by law. The above report was generated using voice recognition software. It may contain grammatical, syntax or spelling errors. Electronically signed by: Edilberto Dubose M.D. 01/08/2020 7:07 AM
[2020-01-08 08:11] LABS: Hematocrit (blood only) 42.4 % (42-52); Hemoglobin 13.8 g/dL (14.0-18.0); Mean Corpuscular Hemoglobin 26.6 pg (25-34); Mean Corpuscular Hgb Conc 32.5 g/dL (32-36); Mean Corpuscular Volume 81.9 fL (80-100); Mean Platelet Volume 11.4 fL (7.4-10.4); Platelet Count 118 K/uL (130-400); RDW Standard Deviation 47.9 fL (36.4-46.3); Red Blood Count 5.18 M/uL (4.7-6.1); White Blood Count 30.55 K/uL (4.8-10.8)
--- NOTE | 2020-01-08 08:14 | Hospitalist Progress Note ---
Date of Service January 08, 2020 Assessment & Plan (1) SIRS (systemic inflammatory response syndrome): Patient presents with fever/chills, tachycardia, tachypnea, hypoxia, significant leukocytosis, with cough and shortness of breath. With mild headache but no neck pain or meningismus signs. Although chest imaging is not showing clearly defined pneumonia, elevated procalcitonin , suspect a pulmonary source of his infection given his history of COPD, productive cough and hypoxia. Urinalysis without evidence of infection, no abdominal pains. COVID-19 test is negative, viral respiratory panel bio fire is negative. No cellulitis noted or signs/symptoms of bone/joint infection. -Blood cultures pending - empiric antibiotic coverage for community-acquired pneumonia with Rocephin and azithromycin, CTA did not suggest pneumonia -negative Lyme titer -Acetaminophen as needed for fever and headache will order CT abdomen and pelvis with oral contrast to evaluate for GB disease or intra abdominal pathology (2) Hypoxia: With acute respiratory failure with hypoxia, h/o chronic respiratory failure from copd CT angiogram of the chest negative for PE or significant pneumonia as above With a history of COPD and with productive cough-could be from bronchitis as no defined infiltrate seen on CXR -Supplemental O2 to keep pulse ox greater than 92% -Levalbuterol inhaler as needed -Continue home COPD inhalers -admitting physician did not add on steroids at this time given possibility of bacterial infection and sepsis (3) Cough: As noted above (4) Elevated troponin: troponin has had significant rise, current ECG from am 7/29 is non acute, will start heparin ECG prehospital showed ST depressions in lateral leads -pending echocardiogram for wall motion abnormalities -Cardiology consult (5) Coronary artery disease: With a history of IN with stents placed in 2002 at [facility] -Continue home aspirin, metoprolol, pravastatin -Holding home enalapril for low blood pressures (6) Hypomagnesemia: Magnesium low at 1.5 on admission -Given 1 g of IV magnesium, repeat low at 1.7-> augment (7) Diabetes mellitus: On metformin and glyburide as an outpatient -Hold home meds and give NovoLog sliding scale May need to add on Lantus Check hemoglobin A1c in the morning (8) HTN (hypertension), benign: Blood pressures dropped low upon admission likely secondary to Sirs/deve loping sepsis -Bolused with IV fluid and will continue IV fluids -Hold home enalapril and home Lasix metoprolol given elevated troponin and history of IN (9) COPD (chronic obstructive pulmonary disease): With COPD as per patient secondary to secondhand smoke exposure, was never a smoker -Continue home inhalers -Levalbuterol PRN shortness of breath No acute exacerbation (10) BPH (benign prostatic hyperplasia): No acute issues -Continue home tamsulosin and finasteride (11) Carotid artery stenosis: With a history of right CEA -Continue home aspirin and pravastatin (12) Edema: Patient reports his lower extremity edema in the feet and ankles has been worsening over the last few months -Holding home Lasix for low blood pressure and sepsis -Echo with reduced EF and possible new RWMA -Follow I's and O's, daily weights (13) DVT prophylaxis: Lovenox SQ, TAMANNA hose Eventually back to longterm Admission and Anticipated Discharge Date Admission Date: January 07, 2020 Subjective Patient is resting comfortably in the room. He describes his chest pressure b eing exertionally related occasionally radiating to his jaw and occasionally associate with nausea and diaphoresis. Is been reproducible over the last few months worsening over the last few weeks due to his walking further to the cafeteria at the longterm. Regarding pulmonary symptoms he does have a little bit of a nonproductive cough he did have a negative bio fire COVID screening on the way in, however he did have a documented temperature of 103.1 at 1541 hrs. on 01/06 no temperature since On examination his basilar crackles but nothing focal no egophony no dullness is a negative urinalysis on presentation and no signs of any skin related infections is a markedly elevated leukocytosis however no signs of diarrhea. Additionally his differential only includes immature granulocytes which could be consistent with an infection although source is still questionable Review of Systems Review of Systems: Mild distress and fatigue no headache, blurry or double vision no speech or swallowing issues substernal chest pain a pressure sensation but not palpitations, occasionally radiated to jaw intermittent shortness of breath associated with chest pain, no cough or wheezes no abdominal pain, nausea or vomiting, diarrhea or constipation no dysuria, hematuria or frequency no focal joint pain or swelling no back pain, CVA tenderness or radicular pain no bruising, bleeding or rashes no focal signs of weakness or numbness or altered sensation no complaints or anxiety or depression Physical Exam Physical Exam: The patient appeared well nourished and normally developed. Vital signs as documented. Head exam is normocephalic atraumatic no scleral icterus Neck is without JVD, thyromegaly, or carotid bruits. Lungs are clear to auscultation, no focal loss of breath sounds Cardiac exam, Rhythm is regular.. No murmurs, rubs or gallops. Abdominal exam reveals normal bowel sounds, soft non tender, left flank hernia that does not appear to be strangulated Extremities are nonedematous and both pedal pulses are normal. Neurologic exam is alert and oriented, no focal loss of strength or sensation Skin is without bruises or rashes Psychologically is without concerns for anxiety or depression Results & Data Results & Data ([facility]) Vital Signs (Past 12 Hours) Vital Signs Temp Pulse Pulse Resp BP BP Pulse Ox 01/08/20 07:40 97.9 F 74 20 99/60 L 99 01/08/20 04:00 98.4 F 76 18 100/62 94 01/08/20 00:55 99/51 L 01/07/20 23:23 98.2 F 81 18 90/57 L 93 01/07/20 23:00 87 01/07/20 22:15 98.2 F 95 H 22 86/51 L 94 01/07/20 22:01 91 H 20 148/95 H 01/07/20 21:45 96 H 23 01/07/20 21:30 92 H 18 97/56 L 01/07/20 21:15 92 H 18 01/07/20 21:01 90 22 100/69 01/07/20 21:00 91 H 20 01/07/20 20:45 93 H 22 01/07/20 20:30 100 H 21 122/63 01/07/20 20:15 102 H 17 PG Care Time/CCT Total # of Minutes Spent Total Time Spent with Patient: Total time spent is greater than 50% in coordination of care (as documented) at patient's floor/unit and/or counseling patient: Coding Level of Care Code 92242 Subseq Hosp Care Lvl 3 Diagnoses SIRS (systemic inflammatory response syndrome) R65.10 Hypoxia R09.02 Cough R05 Elevated troponin R79.89 Coronary artery disease I25.10 Hypomagnesemia E83.42 Diabetes mellitus E11.9 HTN (hypertension), benign I10 COPD (chronic obstructive pulmonary disease) J44.9 BPH (benign prostatic hyperplasia) N40.0 Carotid artery stenosis I65.29 Edema R60.9 DVT prophylaxis Z29.9
[2020-01-08 08:22] LABS: Estimated Average Glucose 166 mg/dl; Hemoglobin A1C 7.4 % (4.5-5.6)
[2020-01-08 08:23] LABS: Albumin Level 2.7 gm/dl (3.4-5.0); BUN Creatinine Ratio 13.6 (10-20); Calcium 7.9 mg/dl (8.5-10.1); Creatinine Clr Calc Pharmacy 59.7 ml/min; Est GFR (African American) 57.9; Est GFR (Non-African American) 49.9; Magnesium 1.7 mg/dl (1.8-2.4); Potassium 4.5 mmol/L (3.5-5.1)
[2020-01-08] MEDS ORDERED: HEPARIN SODIUM/DEXTROSE 25,000 UNITS/500 ML BAG IV SCH ×2 (08:30)
[2020-01-08] MEDS ORDERED: HEPARIN IV BOLUS 7,000 UNITS in SYRINGE 0 ML IV ONE (08:30)
[2020-01-08 08:31] LABS: Basophils # (auto) 0.01 K/uL (0-0.2); Immature Granulocytes # (auto) 0.16 K/uL (0.00-0.02); Immature Granulocytes % (auto) 0.5 %; Lymphocytes # (auto) 0.72 K/uL (1.2-3.4); Lymphocytes % (auto) 2.4 %; Monocytes # (auto) 0.99 K/uL (0.11-0.59); Monocytes % (auto) 3.2 %; Neutrophils # (auto) 28.67 K/uL (1.4-6.5); Neutrophils % (auto) 93.9 %
[2020-01-08 08:33] LABS: Albumin Globulin Ratio 0.8 (0.9-2); Bilirubin,Total 0.8 mg/dl (0.2-1); Globulin 3.3 gm/dl (2.5-4.0); Troponin I 11.7 ng/ml (0-0.045)
[2020-01-08] MEDS: HEPARIN SODIUM/DEXTROSE 25,000 UNITS/500 ML BAG IV SCH (08:48)
[2020-01-08] MEDS: UMECLIDINIUM BROMIDE 62.5MCG/BLISTER 7 PUFFS/INHALER INH SCH (08:52)
[2020-01-08] MEDS: METOPROLOL TARTRATE 25 MG TAB PO SCH ×2 (08:53→20:46)
[2020-01-08] MEDS: ASPIRIN 81 MG ECTAB PO SCH (08:53)
[2020-01-08] MEDS: OLODATEROL HCL 2.5MCG/ACTUATION 60 PUFFS/INHALER INH SCH (08:55)
[2020-01-08] MEDS: FLUTICASONE FUROATE 100MCG 14 PUFFS/INHALER INH SCH (08:56)
[2020-01-08] MEDS: INSULIN ASPART 100 UNITS/ML 3 ML PEN SC SCH ×4 (09:02→21:17)
--- NOTE | 2020-01-08 10:47 | XCELERA ---
[id number]
--- NOTE | 2020-01-08 13:24 | Cardiology Consultation ---
Date of Consultation January 08, 2020 Assessment & Plan (1) NSTEMI (non-ST elevated myocardial infarction): 2. Mild LV dysfunction with inferolateral wall motion normality 3. SIRS with unclear source 4. Prior peripheral vascular disease, post carotid enterectomy, questionable EVAR 5. Thrombocytopenia 6. Type 2 diabetes 7. COPD Suspicion for ACS is elevated and recommend additional risk ratification with cardiac catheterization at some point. At present patient is chest pain-free and hemodynamically and electrically stable. In the setting of active infection possible bacteremia and recent contrast load we will hold off on procedure today. Continue heparin infusion, aspirin, beta-ester. Assuming stable from an infectious standpoint plan to proceed with cardiac catheterization tomorrow. N.p.o. overnight. Urgent catheterization sooner if recurrent chest pain. History of Present Illness Attending Physician: Javon Hughes MD History of Present Illness Mr. Douglas is a 79-year-old man with a history of coronary artery disease post prior stents in the setting of [place] in 2002 ([place]), ? EVAR, hypertension, COPD, type 2 diabetes on oral therapy, dyslipidemia admitted with fever/chills and atypical chest pain. Cardiology consulted for elevated troponin. Yesterday symptoms began at rest initially with shaking chills followed by righ t-sided chest discomfort. Symptoms different than what experienced with prior CA. In route to emergency department continued to have chest pain and was given sublingual nitroglycerin with resolution of chest symptoms. On arrival febrile, leukocytosis with left shift, elevated procalcitonin and today has 102 blood cultures growing GPC's in chains. Respiratory panel and COVID-19 negative. CTA negative for PE, positive for emphysema, mild pulmonary edema and trace pleural effusions. ECGs remarkable for left anterior fascicular block, borderline lateral ST depressions on initial ECGs which have since resolved. Troponin up from 0.5- 11.7 today. Echo technically limited but showed questionable new LV dysfunction with EF of 40 to 45% and an inferolateral wall motion abnormality. Allergies Allergy/AdvReac Type Severity Reaction Status Date / Time No Known Allergies Allergy Unverified 01/07/20 16:16 Home Medications Home Medications Medication Instructions Recorded Confirmed Type aspirin [Aspirin Low Dose] 81 mg PO QAM 06/29/18 01/07/20 History enalapril maleate [Vasotec] 5 mg PO BID 06/29/18 01/07/20 History finasteride [Proscar] 5 mg PO HS 06/29/18 01/07/20 History furosemide [Lasix] 40 mg PO DAILY 06/29/18 01/07/20 History glyburide 5 mg PO BID 06/29/18 01/07/20 History levalbuterol tartrate [Xopenex HFA] 2 inh INHALATION QID PRN 06/29/18 01/07/20 History levothyroxine 75 mcg PO DAILY 06/29/18 01/07/20 History meloxicam 15 mg PO HS 06/29/18 01/07/20 History metformin 850 mg PO TID 06/29/18 01/07/20 History metoprolol tartrate 12.5 mg PO BID 06/29/18 01/07/20 History nitroglycerin [Nitrostat] 0.4 mg SUBLINGUAL Q5M PRN 06/29/18 01/07/20 History pravastatin 40 mg PO HS 06/29/18 01/07/20 History tamsulosin [Flomax] 0.8 mg PO QPM 06/29/18 01/07/20 History ciclesonide [Alvesco] 1 puff INHALATION BID 01/07/20 01/07/20 History salmeterol [Serevent Diskus] 1 inh INHALATION BID 01/07/20 01/07/20 History umeclidinium [Incruse Ellipta] 1 inh INHALATION DAILY 01/07/20 01/07/20 History Patient History Medical History BPH (benign prostatic hyperplasia) Carotid artery stenosis COPD (chronic obstructive pulmonary disease) Coronary artery disease (Chronic) Diabetes mellitus Heart attack (Resolved) HTN (hypertension), benign Hypomagnesemia (Acute) Orthostatic hypotension (Resolved) Prostatitis, acute (Resolved) Syncope (Acute) Urinary retention (Resolved) Surgical History H/O cardiac catheterization (Resolved) H/O carotid endarterectomy H/O percutaneous transluminal coronary angioplasty (Resolved) Stented coronary artery (Chronic) Family History Other Family history non-contributory Social History (Updated 01/07/20 @ 21:44 by Megan Prasad MD) Smoking Status: Never smoker Second Hand Exposure: Yes (From his brother); Hx Alcohol Use: No Hx Substance Use: No Preferred Language: Yoruba Communication Ability: Effective Visual Impairment: No Limitations Hearing Ability: Normal Beliefs That Will Affect Care: None Current Living Situation: Other Current Living Situation Comment: sci Feels Safe at Home: Yes Review of Systems Review of Systems: All systems reviewed & are unremarkable except as noted in HPI & below Physical Exam Physical Exam: General: Comfortable, no acute distress Eyes: Sclerae anicteric, extraocular movements intact HENT: Oropharynx clear mucous membranes moist Neck: Normal carotid upstrokes, prior right carotid endarterectomy Lungs: Clear to auscultation bilaterally Cardiac: Distant heart sounds, regular, no murmurs Vascular: 2+ radial bilaterally Abdomen: Soft, nontender, nondistended, positive bowel sounds. Extremities: Well perfused, no peripheral edema Skin: No rashes or lesions. Neuro: Nonfocal Psych: Alert orient x3, normal affect and mood Results & Data ([facility]) Vital Signs (Past 12 Hours) Vital Signs Temp Pulse Resp BP Pulse Ox 01/08/20 07:40 97.9 F 74 20 99/60 L 99 01/08/20 04:00 98.4 F 76 18 100/62 94 PG Care Time/CCT Total # of Minutes Spent Total Time Spent with Patient: Total time spent is greater than 50% in coordination of care (as documented) at patient's floor/unit and/or counseling patient: Coding Level of Care Code 46418 Inpt Consult Level 4 Diagnoses NSTEMI (non-ST elevated myocardial infarction) I21.4
[2020-01-08 16:10] LABS: Partial Thromboplastin Ratio 4.9
[2020-01-08 16:17] LABS: Partial Thromboplastin Time 137.3 Seconds (21.0-31.0)
[2020-01-08 17:53] LABS: Partial Thromboplastin Ratio 2.8
[2020-01-08 18:12] LABS: Partial Thromboplastin Time 78.1 Seconds (21.0-31.0)
--- NOTE | 2020-01-08 20:22 | CT Scan Report ---
CT OF THE ABDOMEN AND PELVIS WITH ORAL CONTRAST CLINICAL HISTORY: eval for GB disease or occult infection COMPARISON STUDY: CT of the abdomen and pelvis November 28, 2013. TECHNIQUE: Axial images of the abdomen and pelvis were obtained without IV contrast. Oral contrast wa s administered. Automated exposure control was utilized for the study. A dose lowering technique was utilized adhering to the principles of ALARA. FINDINGS: Imaged portions of the lower chest demonstrate small bilateral pleural effusions. No pneuma tosis, free air or portal venous gas is present. Evaluation of the abdomen and pelvis is suboptimal o n this unenhanced examination. Several water attenuation hepatic lesions were shown to reflect cysts on CT of November 18, 2013. The spleen, adrenal glands, kidneys and pancreas are unremarkable. Gallbladder is mildly distended. There is no adjacent infiltration. There are few diverticula of the second port ion of the duodenum. The appendix is normal. There is no evidence for a bowel obstruction. Caliber an d wall thickness of small and large bowel are normal. Prostate is moderately enlarged. There is contr ast within the bladder from recent contrast-enhanced CT. Aneurysmal dilatation of the infrarenal abdo placido aorta, measuring 3.4 cm, has mildly increased since CT of November 18, 2013. There are postsurgical findings within the retroperitoneum. Fat-containing right inguinal hernia is noted. There is a promin ent right iliac node which is likely reactive. There is mild asymmetric infiltration within visualize d portions of the right lower extremity and the right inguinal canal extending into the retroperitone um. No fluid collection is identified. There is no soft tissue gas. IMPRESSION: 1. Mild gallbladder distention without pericholecystic infiltration. These findings do not strongly suggest acute cholecystitis although a right upper quadrant ultrasound could be obtained for further evaluation. 2. Mild asymmetric infiltration within the right retroperitoneum, right thigh and right inguinal aj l. This may reflect edema or cellulitis. No fluid collection. No soft tissue gas. Fat-containing righ t inguinal hernia. 3. No bowel obstruction. 4. Mild aneurysmal dilatation of the infrarenal abdominal aorta, measuring 3.4 cm. Associated post kumari rgical findings may reflect previous repair. ACT 112: Negative or not required by law. Electronically signed by: Rakesh Farooq M.D. 01/08/2020 8:21 PM
[2020-01-08] MEDS: PRAVASTATIN SOD 40 MG TAB PO SCH (20:45)
[2020-01-08] MEDS: MELOXICAM 7.5 MG TAB PO SCH (20:46)
[2020-01-08] MEDS: AZITHROMYCIN 250 MG TAB PO SCH (20:47)
[2020-01-08] MEDS: TAMSULOSIN HCL 0.4 MG CAP PO SCH (20:47)
[2020-01-08] MEDS: FINASTERIDE 5 MG TAB PO SCH (20:47)
[2020-01-08] MEDS: cefTRIAXone SODIUM 2,000 MG in DEXTROSE 5% 50 ML IV SCH (20:53)
[2020-01-09 00:43] LABS: Partial Thromboplastin Ratio 2.4
[2020-01-09 00:46] LABS: Partial Thromboplastin Time 67.1 Seconds (21.0-31.0)
[2020-01-09] MEDS: HEPARIN SODIUM/DEXTROSE 25,000 UNITS/500 ML BAG IV SCH ×2 (03:34→20:29)
[2020-01-09] MEDS: LEVOTHYROXINE SODIUM 75 MCG TABLET PO SCH (05:42)
[2020-01-09] MEDS: ACETAMINOPHEN 325 MG TAB PO PRN (05:45)
[2020-01-09] MEDS: UMECLIDINIUM BROMIDE 62.5MCG/BLISTER 7 PUFFS/INHALER INH SCH (07:37)
[2020-01-09] MEDS: FLUTICASONE FUROATE 100MCG 14 PUFFS/INHALER INH SCH (07:37)
[2020-01-09] MEDS: METOPROLOL TARTRATE 25 MG TAB PO SCH ×2 (07:38→19:50)
[2020-01-09] MEDS: ASPIRIN 81 MG ECTAB PO SCH (07:38)
[2020-01-09] MEDS: OLODATEROL HCL 2.5MCG/ACTUATION 60 PUFFS/INHALER INH SCH (07:38)
[2020-01-09 07:39] LABS: Partial Thromboplastin Ratio 2.1
[2020-01-09 07:42] LABS: Partial Thromboplastin Time 59.1 Seconds (21.0-31.0)
[2020-01-09 07:57] LABS: BUN Creatinine Ratio 13.5 (10-20); Calcium 7.9 mg/dl (8.5-10.1); Creatinine Clr Calc Pharmacy 76.1 ml/min; Est GFR (African American) 77.5; Est GFR (Non-African American) 66.9; Potassium 4.1 mmol/L (3.5-5.1)
[2020-01-09] MEDS: INSULIN ASPART 100 UNITS/ML 3 ML PEN SC SCH ×4 (08:04→20:27)
--- NOTE | 2020-01-09 08:45 | Electrocardiogram Report ---
Test Reason : Blood Pressure : / mmHG Vent. Rate : 125 BPM Atrial Rate : 125 BPM P-R Int : 162 ms QRS Dur : 100 ms QT Int : 298 ms P-R-T Axes : 055 -65 080 degrees QTc Int : 430 ms Sinus tachycardia Left axis deviation Anterior infarct (cited on or before 29-JUN-2018) Abnormal ECG When compared with ECG of 29-JUN-2018 10:15, Premature ventricular complexes are no longer Present Questionable change in initial forces of Anterior leads Confirmed by Lawrence Rivera ([id number]) on 01/09/2020 8:44:41 AM Referred By: [facility] Confirmed By:Lawrence Rivera
--- NOTE | 2020-01-09 08:55 | Electrocardiogram Report ---
Test Reason : Blood Pressure : / mmHG Vent. Rate : 074 BPM Atrial Rate : 074 BPM P-R Int : 194 ms QRS Dur : 116 ms QT Int : 434 ms P-R-T Axes : 049 -62 117 degrees QTc Int : 481 ms Poor data quality, interpretation may be adversely affected Sinus rhythm with frequent Premature ventricular complexes Possible Left atrial enlargement Incomplete right bundle branch block Left anterior fascicular block Septal infarct (cited on or before 29-JUN-2018) Possible Lateral infarct (cited on or before 29-JUN-2018) Abnormal ECG When compared with ECG of 07-JAN-2020 15:42, (unconfirmed) HR has decreased Premature ventricular complexes are now Present Confirmed by Lawrence Rivera ([id number]) on 01/09/2020 8:54:44 AM Referred By: [facility] SCI Confirmed By:Lawrence Rivera
--- NOTE | 2020-01-09 08:55 | Hospitalist Progress Note ---
Date of Service January 09, 2020 Assessment & Plan (1) SIRS (systemic inflammatory response syndrome): Patient presents with fever/chills, tachycardia, tachypnea, hypoxia, significant leukocytosis, with cough and shortness of breath. With mild headache but no neck pain or meningismus signs. Although chest imaging is not showing clearly defined pneumonia, elevated procalcitonin , suspect a pulmonary source of his infection given his history of COPD, productive cough and hypoxia. Urinalysis without evidence of infection, no abdominal pains. COVID-19 test is negative, viral respiratory panel bio fire is negative. No cellulitis noted or signs/symptoms of bone/joint infection. -Blood cultures pending - empiric antibiotic coverage for community-acquired pneumonia with Rocephin and azithromycin, CTA did not suggest pneumonia -negative Lyme titer -Acetaminophen as needed for fever and headache 01/08/20 CT abdomen and pelvis with oral contrast IMPRESSION: 1. Mild gallbladder distention without pericholecystic infiltration. These findings do not strongly suggest acute cholecystitis although a right upper quadrant ultrasound could be obtained for further evaluation. 2. Mild asymmetric infiltration within the right retroperitoneum, right thigh and right inguinal canal. This may reflect edema or cellulitis. No fluid collection. No soft tissue gas. Fat- containing right inguinal hernia. 3. No bowel obstruction. 4. Mild aneurysmal dilatation of the infrarenal abdominal aorta, measuring 3.4 cm. Associated post surgical findings may reflect previous repair. (2) Hypoxia: With acute respiratory failure with hypoxia, h/o chronic respiratory failure from copd CT angiogram of the chest negative for PE or significant pneumonia as above With a history of COPD and with productive cough-could be from bronchitis as no defined infiltrate seen on CXR -Supplemental O2 to keep pulse ox greater than 92% -Levalbuterol inhaler as needed -Continue home COPD inhalers -admitting physician did not add on steroids at this time given possibility of bacterial infection and sepsis (3) Cough: As noted above (4) Elevated troponin: troponin has had significant rise, current ECG from am 01/07 is non acute, will start heparin ECG prehospital showed ST depressions in lateral leads 01/08/2020 echocardiogram normal LV size concentric LVH, EF 40 to 45%. Inferolateral wall akinesis. Grade 2 diastolic dysfunction -Cardiology consult considering left heart catheterization (5) Coronary artery disease: With a history of MT with stents placed in 2002 at [facility] -Continue home aspirin, metoprolol, pravastatin -Holding home enalapril for low blood pressures (6) Hypomagnesemia: Magnesium low at 1.5 on admission -Given 1 g of IV magnesium, repeat low at 1.7-> augment (7) Diabetes mellitus: On metformin and glyburide as an outpatient -Hold home meds and give NovoLog sliding scale May need to add on Lantus Check hemoglobin A1c in the morning (8) HTN (hypertension), benign: Blood pressures dropped low upon admission likely secondary to Sirs/developing sepsis -Bolused with IV fluid and will continue IV fluids -Hold home enalapril and home Lasix metoprolol given elevated troponin and history of MT (9) COPD (chronic obstructive pulmonary disease): With COPD as per patient secondary to secondhand smoke exposure, was never a smoker -Continue home inhalers -Levalbuterol PRN shortness of breath No acute exacerbation (10) BPH (benign prostatic hyperplasia): No acute issues -Continue home tamsulosin and finasteride (11) Carotid artery stenosis: With a history of right CEA -Continue home aspirin and pravastatin (12) Edema: Patient reports his lower extremity edema in the feet and ankles has been worsening over the last few months -Holding home Lasix for low blood pressure and sepsis -Echo with reduced EF and possible new RWMA -Follow I's and O's, daily weights (13) DVT prophylaxis: Lovenox SQ, TAMANNA hose Eventually back to senior living Admission and Anticipated Discharge Date Admission Date: January 07, 2020 Subjective Patient is resting comfortably in the room. He describes his chest pressure being exertionally related occasionally radiating to his jaw and occasionally associate with nausea and diaphoresis. Is been reproducible over the last few months worsening over the last few weeks due to his walking further to the cafeteria at the senior living. Regarding pulmonary symptoms he does have a little bit of a nonproductive cough he did have a negative bio fire COVID screening on the way in, however he did have a documented temperature of 103.1 at 1541 hrs. on 01/06 no temperature since On examination his basilar crackles but nothing focal no egophony no dullness is a negative urinalysis on presentation and no signs of any skin related infections is a markedly elevated leukocytosis however no signs of diarrhea. Additionally his differential only includes immature granulocytes which could be consistent with an infection although source is still questionable Review of Systems Review of Systems: Mild distress and fatigue no headache, blurry or double vision no speech or swallowing issues substernal chest pain a pressure sensation but not palpitations, occasionally radiated to jaw intermittent shortness of breath associated with chest pain, no cough or wheezes no abdominal pain, nausea or vomiting, diarrhea or constipation no dysuria, hematuria or frequency no focal joint pain or swelling no back pain, CVA tenderness or radicular pain no bruising, bleeding or rashes no focal signs of weakness or numbness or altered sensation no complaints or anxiety or depression Physical Exam Physical Exam: The patient appeared well nourished and normally developed. Vital signs as documented. Head exam is normocephalic atraumatic no scleral icterus Neck is without JVD, thyromegaly, or carotid bruits. Lungs are clear to auscultation, no focal loss of breath sounds Cardiac exam, Rhythm is regular.. No murmurs, rubs or gallops. Abdominal exam reveals normal bowel sounds, soft non tender, left flank hernia that does not appear to be strangulated Extremities are nonedematous and both pedal pulses are normal. Neurologic exam is alert and oriented, no focal loss of strength or sensation Skin is without bruises or rashes Psychologically is without concerns for anxiety or depression Results & Data Results & Data ([facility]) Vital Signs (Past 12 Hours) Vital Signs Temp Pulse Pulse Resp BP BP Pulse Ox 01/09/20 07:16 98.8 F 77 18 123/68 95 01/09/20 03:20 99.7 F H 80 18 120/73 95 01/09/20 00:00 94 H 01/08/20 23:16 99.1 F 103 H 20 153/84 H 94 PG Care Time/CCT Total # of Minutes Spent Total Time Spent with Patient: Total time spent is greater than 50% in coordination of care (as documented) at patient's floor/unit and/or counseling patient: Coding Diagnoses SIRS (systemic inflammatory response syndrome) R65.10 Hypoxia R09.02 Cough R05 Elevated troponin R79.89 Coronary artery disease I25.10 Hypomagnesemia E83.42 Diabetes mellitus E11.9 HTN (hypertension), benign I10 COPD (chronic obstructive pulmonary disease) J44.9 BPH (benign prostatic hyperplasia) N40.0 Carotid artery stenosis I65.29 Edema R60.9 DVT prophylaxis Z29.9
--- NOTE | 2020-01-09 09:01 | Electrocardiogram Report ---
Test Reason : Blood Pressure : / mmHG Vent. Rate : 090 BPM Atrial Rate : 090 BPM P-R Int : 156 ms QRS Dur : 116 ms QT Int : 400 ms P-R-T Axes : 055 -59 -33 degrees QTc Int : 489 ms Sinus rhythm with occasional Premature ventricular complexes Low voltage QRS Left anterior fascicular block Prolonged QT Abnormal ECG When compared with ECG of 07-JAN-2020 19:59, (unconfirmed) Borderline criteria for Lateral infarct are no longer Present T wave inversion now evident in Inferior leads T wave inversion no longer evident in Lateral leads Confirmed by Lawrence Rivera ([id number]) on 01/09/2020 9:01:42 AM Referred By: [facility] Confirmed By:Lawrence Rivera
--- NOTE | 2020-01-09 09:04 | Electrocardiogram Report ---
Test Reason : Blood Pressure : / mmHG Vent. Rate : 081 BPM Atrial Rate : 081 BPM P-R Int : 148 ms QRS Dur : 114 ms QT Int : 400 ms P-R-T Axes : 048 -46 027 degrees QTc Int : 464 ms Normal sinus rhythm Low voltage QRS Left anterior fascicular block Poor R wave progression, consider anterior OR vs. lead placement vs. LVH Abnormal ECG When compared with ECG of 08-JAN-2020 07:05, Premature ventricular complexes are no longer Present Confirmed by Dimitri Avila ([id number]) on 01/09/2020 9:03:52 AM Referred By: [facility] Confirmed By:Dimitri Avila
--- NOTE | 2020-01-09 09:16 | Electrocardiogram Report ---
Test Reason : Blood Pressure : / mmHG Vent. Rate : 091 BPM Atrial Rate : 072 BPM P-R Int : 148 ms QRS Dur : 108 ms QT Int : 406 ms P-R-T Axes : 024 -54 -30 degrees QTc Int : 499 ms Sinus rhythm with frequent Premature ventricular complexes , Interpolated Low voltage QRS Left anterior fascicular block Cannot rule out Anterior infarct , age undetermined Abnormal ECG When compared with ECG of 08-JAN-2020 01:11, (unconfirmed) No significant change was found Confirmed by Lawrence Rivera ([id number]) on 01/09/2020 9:16:32 AM Referred By: [facility] Confirmed By:Lawrence Rivera
[2020-01-09 09:39] LABS: Hematocrit (blood only) 43.1 % (42-52); Hemoglobin 13.4 g/dL (14.0-18.0); Mean Corpuscular Hemoglobin 25.9 pg (25-34); Mean Corpuscular Hgb Conc 31.1 g/dL (32-36); Mean Corpuscular Volume 83.2 fL (80-100); RDW Coefficient of Variation 16.2 % (11.5-14.5); RDW Standard Deviation 49.2 fL (36.4-46.3); Red Blood Count 5.18 M/uL (4.7-6.1); White Blood Count 18.44 K/uL (4.8-10.8)
[2020-01-09 09:42] LABS: Mean Platelet Volume 12.5 fL (7.4-10.4); Platelet Count 107 K/uL (130-400)
[2020-01-09 09:43] LABS: Basophils # (auto) 0.01 K/uL (0-0.2); Basophils % (auto) 0.1 %; Eosinophils # (auto) 0.04 K/uL (0-0.5); Eosinophils % (auto) 0.2 %; Immature Granulocytes % (auto) 0.5 %; Lymphocytes # (auto) 1.07 K/uL (1.2-3.4); Lymphocytes % (auto) 5.8 %; Monocytes # (auto) 1.36 K/uL (0.11-0.59); Monocytes % (auto) 7.4 %; Neutrophils # (auto) 15.86 K/uL (1.4-6.5); Platelet Estimate Decreased (Normal)
[2020-01-09] MEDS ORDERED: NiCARDipine HCL INJ 2.5 MG/ML 10 ML AMP ONE (12:27)
[2020-01-09] MEDS ORDERED: MIDAZOLAM HCL 1 MG/ML 2ML VIAL ONE (12:27)
[2020-01-09] MEDS ORDERED: HEPARIN (PORCINE) 1000 UNIT/ML 10 ML (CATH LAB USE ONLY) ONE (12:27)
[2020-01-09] MEDS ORDERED: fentaNYL citrate 100 MCG/2 ML VIAL ONE (12:27)
[2020-01-09] MEDS ORDERED: NITROGLYCERIN/D5W 100MCG/ML 20ML SYR ONE (12:28)
--- NOTE | 2020-01-09 12:31 | Pre Anesthesia Assessment ---
Date of Service January 09, 2020 Pre Sedation Assessment Vital Signs Temp Pulse Pulse Resp BP BP Pulse Ox 01/09/20 11:13 97.5 F L 68 18 107/67 93 01/09/20 08:00 78 01/09/20 07:16 98.8 F 77 18 123/68 95 01/09/20 03:20 99.7 F H 80 18 120/73 95 01/09/20 00:00 94 H 01/08/20 23:16 99.1 F 103 H 20 153/84 H 94 01/08/20 19:16 98.1 F 96 H 18 149/86 H 97 01/08/20 15:39 98.4 F 82 18 130/72 96 Cardiovascular RRR, no murmur, no edema Respiratory normal respiratory effort, lungs clear to auscultation Pre-Sedation Airway Assessment Smoking Status: Never smoker Hx Sleep Apnea: No Hx Difficult Intubation: No Short, Thick Neck: No Thyromental Distance: > or= 3.5 Finger Breadths Oral Cavity: + WNL Mallampati Class: III ASA: ASA3 NPO Status Date of Last Intake of Fluids: 01/08/20 Date of Last Intake of Solid Food: 01/08/20 Procedure Planning Contraindications for Sedation: none Current Medications Reviewed: Yes Notes The planned sedation has been discussed with the patient. Informed Consent was obtained. I have identified the patient, determined the appropriateness of sedation and have assessed the patient immediately prior to the procedure. All medicine(s) and interventions are by my order.
--- NOTE | 2020-01-09 13:43 | Cardiology Progress Note ---
Date of Service January 09, 2020 Assessment & Plan (1) NSTEMI (non-ST elevated myocardial infarction): 2. Mild LV dysfunction with inferolateral wall motion normality 3. SIRS with unclear source 4. Prior peripheral vascular disease, post carotid enterectomy, questionable EVAR 5. Thrombocytopenia 6. Type 2 diabetes 7. COPD No additional fevers, white blood cell count has trended down. Single blood culture with group B strep likely contaminant. Patient has been largely chest pain-free. Troponin has trended down. Dyspnea on exertion persist Renal function improved today. Plan to proceed with cardiac catheterization via right radial artery. Further recommendations pending findings. Admission and Anticipated Discharge Date Admission Date: January 07, 2020 Subjective Feeling well today. Brief headache this morning responded to Tylenol. No chest pain overnight. Denies fevers. Reports some shortness of breath with getting up to go to the bathroom. Gtz now in place. Review of Systems Review of Systems: All systems reviewed & are unremarkable except as noted in HPI & below Physical Exam Physical Exam: General: Comfortable, no acute distress Eyes: Sclerae anicteric, extraocular movements intact HENT: Oropharynx clear mucous membranes moist Lungs: Clear to auscultation bilaterally Cardiac: Distant heart sounds, regular, no murmurs Vascular: 2+ radial bilaterally Abdomen: Soft, nontender, nondistended, positive bowel sounds. Extremities: Well perfused, no peripheral edema Skin: No rashes or lesions. Neuro: Nonfocal Psych: Alert orient x3, normal affect and mood Results & Data ([facility] [place]) Vital Signs (Past 12 Hours) Vital Signs Temp Pulse Pulse Resp BP Pulse Ox 01/09/20 11:13 97.5 F L 68 18 107/67 93 01/09/20 08:00 78 01/09/20 07:16 98.8 F 77 18 123/68 95 01/09/20 03:20 99.7 F H 80 18 120/73 95 PG Care Time/CCT Total # of Minutes Spent Total Time Spent with Patient: Total time spent is greater than 50% in coordination of care (as documented) at patient's floor/unit and/or counseling patient: Coding Level of Care Code 57803 Subseq Hosp Care Lvl 2 Diagnoses NSTEMI (non-ST elevated myocardial infarction) I21.4
--- NOTE | 2020-01-09 14:19 | Post Anesthesia Assessment ---
Date of Service January 09, 2020 Post Sedation Assessment Vital Signs Temp Pulse Pulse Resp BP BP Pulse Ox 01/09/20 11:13 97.5 F L 68 18 107/67 93 01/09/20 08:00 78 01/09/20 07:16 98.8 F 77 18 123/68 95 01/09/20 03:20 99.7 F H 80 18 120/73 95 01/09/20 00:00 94 H 01/08/20 23:16 99.1 F 103 H 20 153/84 H 94 01/08/20 19:16 98.1 F 96 H 18 149/86 H 97 01/08/20 15:39 98.4 F 82 18 130/72 96 Recovery Score Activity: Moves 4 extremities Respiration: Deep Breath/Cough Circulation: +/-20% PreAnes Value Consciousness: Fully Awake Oxygen Saturation: O2 needed for >90% Discharge Sedation Level of Care: Fast Track Phase II Post Sedation Plan On clinical assessment, the patient appears to have tolerated the sedation without complications. Patient is recovering as anticipated. Patient will continue to be monitored by nursing and may be discharged when sedation discharge criteria are met per below protocol. Upon Completions of procedure up to 15 minutes continue every 5 minute vital signs and the P.A.R. score; then discharge to a Phase I or Fast Track to Phase II per the following guidelines: * Discharge Patient to appropriate Phase II area if PAR is 8 or greater or return to pre- procedure baseline. The post - procedure orders will be as directed. * If PAR score is less than 8 or not return to pre-procedure baseline then patient will follow Phase I monitoring till PAR is reached for Phase II. The Phase I may be done in procedure room or may call to secure a Phase I area. * If naloxone or flumazenil are used for reversal, hold in Phase I for continued monitoring from when last reversal dose was given for a minimum of 60 minutes or longer pending the nurse and/or physician discretion of patient condition before discharge to Phase II. Please call the Sedation Physician to re-evaluate and complete post-note for discharge to Phase II area. Do NOT discharge from procedure sedation or Phase 1 until post- sedation evaluation note is complete by procedure /sedation MD Sedation Discharge Instructions to be given to the patient at discharge to home.
--- NOTE | 2020-01-09 14:25 | Cardiac Catheterization ---
[facility] Data: Repairer Cardiac Status Clinical evaluation leading to the procedure CAD Presenation: Non STEMI Anginal Classification: CCS IV Heart Failure: NYHA Class: CCS III Cardiogenic Shock within 24 Hours: No Imaging Studies Past 6 Months: Yes Stress Studies Past 6 Months: No Diagnostic Physicians Name: Fazal De Jesus MD Status: Elective Closure Device Percutaneous Entry Location: Radial Closure Device: Radial Band Recommendations: CABG Intraprocedure Events Significant Disection: No Perforation: No Cardiac Cath Procedure Full Procedure Date January 09, 2020 Pre-Procedure Diagnosis Pre-Procedure Diagnosis: Non STEMI AUC Score AUC Score: 8 Post-Procedure Diagnosis Post-Procedure Diagnosis: Severe CAD and Elevated Intracardiac Pressures Procedure(s) Performed Procedure(s) Performed: Coronary Angiography and Left Heart Cath Osteologist Fazal De Jesus MD Physician Relations Specialist(s) [place] Estimated Blood Loss Estimated Blood Loss: 15 Medication(s) Medication(s): Fentanyl, Heparin, Lidocaine 1%, Nicardipine, Nitroglycerin and Versed Summary of Findings Indication: High risk NSTEMI Access: 6Fr right radial artery Catheters: [place] Findings: LM -60% distal left main prior to bifurcation LAD -medium caliber vessel, mildly calcified and ectatic proximally diffuse mid segment disease before 70% focal stenosis, distal vessel patent and tapers around apex. Large high first diagonal with moderate diffuse proximal disease and 80% focal mid segment stenosis. Circumflex -medium caliber vessel, 95% acute appearing stenosis in the midsegment just after takeoff of OM1. OM1 medium caliber and widely patent. Left PLB with moderate diffuse disease proximally. RCA -dominant, 70% ostial, ectatic proximally, subtotal earlymid RCA occlusion, 100% chronic total occlusion in latemid RCA at site of prior stent. Distal RCA fills via left to right collaterals. LVEDP -28 Arterial Closure: TR band Summary: 1. Severe left main and three-vessel coronary artery disease -Distal left main 60% 70% mid LAD 95% acute mid circumflex 100% chronic mid RCA occlusion at site of prior stent. Distal vessel fills via left to right collaterals 2. Elevated intracardiac filling pressure Recommendations: Evaluation for bypass surgery Continue diuresis Hemodynamics Rest Ao:: 113/65/86 Final Ao: 127/67/92 LV: 122/28 Recommendations Recommendations: CABG Specimens Specimens: None Radiation Exposure (mGy) 1447 Contrast (mls) 25 Fluids (cc crystalloids) Fluids (cc crystalloids): 60 Drains Drains: none Anesthesia moderate Procedural Complication(s) None Disposition PCU I attest to the content of the Intraoperative Record and any orders documented therein. Any exceptions are noted below. [facility] Card Cath Procedure Codes Cardiac Catheterization Procedure 1: Cardiovascular Cath Procedures: 79503 Coronaries and LHC (+/-LV) Moderate Sedation Procedure 1: Sedation/Anesthesia: 37396 Mod Sedation by the same physician;Init15 Min Child Age 5 & Up PG Care Time/CCT Total # of Minutes Spent Total Time Spent with Patient: Total time spent is greater than 50% in coordination of care (as documented) at patient's floor/unit and/or counseling patient:
--- NOTE | 2020-01-09 17:37 | Discharge Summary ---
Date of Service January 09, 2020 Admission HPI Per Admitting Provider This patient is a 79-year-old male prisoner from [facility] with a history of CAD status post stents, COPD, DM 2, HTN, BPH, and carotid artery stenosis, who presents with shaking chills that started at 3:00 today. He reports having a cough productive of yellow sputum and shortness of breath today as well. He was having some right-sided chest pain that initially went away with nitroglycerin, but after it came back, did not go away with a repeat dose of nitroglycerin. He did have one episode of nausea with vomiting that was nonbloody this afternoon. EMS was called and when they found him he was hypoxic at 84% on room air and was placed on a nonrebreather. He was also noted to have ST depressions in the lateral leads on a prehospital EKG but was chest pain-free when he arrived at the ER. He was noted to be febrile at 39.5 C, tachycardic, tachypneic, and hypoxic. He had a WBC count significantly elevated at 25, a mildly elevated troponin at 0.5, low magnesium at 1.5, lactate was normal, urinalysis without evidence of infection. A chest x-ray showed possible right infrahilar opacities that may reflect airspace disease and a probable trace left pleural effusion. A CT angiogram of the chest was then performed to rule out PE-this was negative for PE, but showed emphysema, cardiomegaly without pulmonary edema, and trace pleural effusions with mild dependent bibasilar atelectasis without evidence of pneumonia. He was given IV Levaquin and IV ceftriaxone, as well as a dose of acetaminophen in the ER. He was weaned off the nonrebreather to 4 L nasal cannula when I saw him and he was feeling a bit better. ROS: Positive for generalized headache, no lightheadedness, no runny nose or sore throat. With chest pain shortness of breath as per HPI, with cough as per HPI. With nausea/vomiting x1, no diarrhea or constipation, no abdominal pain. He has some intermittent dysuria which is chronic. No skin rashes or wounds on his body. He ventures outside for about an hour each morning early in the day when it is not too hot-the senior living guards at the bedside maintained that there are no deer in that area-the only animals that come into the outdoor area would be an occasional skunk or possum. Principal Diagnosis Non-STEMI Three-vessel coronary disease including left main coronary disease Febrile illness Discharge Exam The patient appeared well Vital signs as documented. Lungs are clear to auscultation and appear unlabored Cardiac exam, Rhythm is regular.. No murmurs, rubs or gallops. Abdominal exam reveals normal bowel sounds, soft non tender, no masses Extremities are nonedematous and both pedal pulses are normal. Areas described on CT of the abdomen pelvis of the left thigh and retroperitoneum did not correlate clinically and including his hernia which was on the left side not right Neurologic exam is alert and oriented, no focal loss of strength or sensation Skin is without bruises or rashes Psychologically is without concerns for anxiety or depression Discharge Data Allergies Allergy/AdvReac Type Severity Reaction Status Date / Time No Known Allergies Allergy Unverified 01/07/20 16:16 Consultations 01/07/20 18:36 ED Decision to Admit Stat 01/08/20 01:51 Consult Cardiology Routine 01/09/20 14:57 Burn CD for patient Stat Procedures Performed Operation Date: 01/09/20 12:00 Actual Procedures p Cath, Left with Cors and Vent - Liborio De Jesus MD s Cineradiography w/Routine Exam - Liborio De Jesus MD Ordered Studies 01/07/20 17:18 CT angio chest PE protocol Stat 01/08/20 17:00 CT abd pelvis oral con only Routine 01/09/20 06:49 CL Cath Imgs for PACS use only Stat Hospital Course (1) Elevated troponin: troponin has had significant rise, current ECG from am 01/07 is non acute, will start heparin ECG prehospital showed ST depressions in lateral leads 01/08/2020 echocardiogram normal LV size concentric LVH, EF 40 to 45%. Inferolateral wall akinesis. Grade 2 diastolic dysfunction -Cardiology consult considering left heart catheterization left heart cath 01/09/20 Summary: 1. Severe left main and three-vessel coronary artery disease -Distal left main 60% 70% mid LAD 95% acute mid circumflex 100% chronic mid RCA occlusion at site of prior stent. Distal vessel fills via left to right collaterals (2) Coronary artery disease: With a history of VT with stents placed in [address] [facility] -Continue home aspirin, metoprolol, statin -Holding home enalapril (3) SIRS (systemic inflammatory response syndrome): Patient presents with fever/chills, tachycardia, tachypnea, hypoxia, significant leukocytosis, with cough and shortness of breath. With mild headac he but no neck pain or meningismus signs. Although chest imaging is not showing clearly defined pneumonia, elevated procalcitonin , suspect a pulmonary source of his infection given his history of COPD, productive cough and hypoxia. Urinalysis without evidence of infection, no abdominal pains. COVID-19 test is negative, viral respiratory panel bio fire is negative. No cellulitis noted or signs/symptoms of bone/joint infection. -Blood cultures negative to date - empiric antibiotic coverage for community-acquired pneumonia with Rocephin and azithromycin, CTA did not suggest pneumonia -negative Lyme titer -Acetaminophen as needed for fever and headache 01/08/20 CT abdomen and pelvis with oral contrast IMPRESSION: 1. Mild gallbladder distention without pericholecystic infiltration. These findings do not strongly suggest acute cholecystitis although a right upper quadrant ultrasound could be obtained for further evaluation. 2. Mild asymmetric infiltration within the right retroperitoneum, right thigh and right inguinal canal. This may reflect edema or cellulitis. No fluid collection. No soft tissue gas. Fat- containing right inguinal hernia. 3. No bowel obstruction. 4. Mild aneurysmal dilatation of the infrarenal abdominal aorta, measuring 3.4 cm. Associated post surgical findings may reflect previous repair. (4) Hypoxia: With acute respiratory failure with hypoxia, h/o chronic respiratory failure from copd CT angiogram of the chest negative for PE or significant pneumonia as above With a history of COPD and with productive cough-could be from bronchitis as no defined infiltrate seen on CXR -Supplemental O2 to keep pulse ox greater than 92% -Levalbuterol inhaler as needed -Continue home COPD inhalers -admitting physician did not add on steroids at this time given possibility of bacterial infection and sepsis (5) Diabetes mellitus: On metformin and glyburide as an outpatient -Hold home meds and give NovoLog sliding scale May need to add on Lantus Check hemoglobin A1c was 7.4 (6) Hypomagnesemia: Magnesium low at 1.5 on admission -Given 1 g of IV magnesium, repeat low at 1.7-> augment (7) HTN (hypertension), benign: Blood pressures dropped low upon admission likely secondary to Sirs/developing sepsis -Held home enalapril and home Lasix metoprolol given elevated troponin and history of VT (8) COPD (chronic obstructive pulmonary disease): With COPD as per patient secondary to secondhand smoke exposure, was never a smoker -Continue home inhalers -Levalbuterol PRN shortness of breath No acute exacerbation (9) BPH (benign prostatic hyperplasia): No acute issues -Continue home tamsulosin and finasteride (10) Carotid artery stenosis: With a history of right CEA -Continue home aspirin and pravastatin (11) Edema: Patient reports his lower extremity edema in the feet and ankles has been worsening over the last few months -Holding home Lasix for low blood pressure and sepsis -Echo with reduced EF and possible new RWMA Total Time Total Time Spent Total Time Spent (In Minutes): It required greater than 30 minutes to prepare this patient for discharge Discharge Plan Discharge Items Reason For Visit: FEVERS HYPOXIA Medications and DC Order Prescriptions: No Action furosemide [Lasix] 40 mg Tablet 40 mg PO DAILY RF: 0 enalapril maleate [Vasotec] 5 mg Tablet 5 mg PO BID RF: 0 glyburide 5 mg Tablet 5 mg PO BID RF: 0 pravastatin 40 mg Tablet 40 mg PO HS RF: 0 meloxicam 15 mg Tablet 15 mg PO HS RF: 0 metformin 850 mg Tablet 850 mg PO TID RF: 0 aspirin [Aspirin Low Dose] 81 mg Tablet,Delayed Release (Dr/Ec) 81 mg PO QAM RF: 0 tamsulosin [Flomax] 0.4 mg Capsule 0.8 mg PO QPM RF: 0 nitroglycerin [Nitrostat] 0.4 mg Tablet, Sublingual 0.4 mg Sublingual Q5M PRN (Reason: Chest Pain) RF: 0 finasteride [Proscar] 5 mg Tablet 5 mg PO HS RF: 0 metoprolol tartrate 25 mg Tablet 12.5 mg PO BID RF: 0 levalbuterol tartrate [Xopenex HFA] 45 mcg/actuation Hfa Aerosol Inhaler 2 inh INHALATION QID PRN (Reason: Shortness Of Breath) RF: 0 levothyroxine 75 mcg Capsule 75 mcg PO DAILY RF: 0 Serevent Diskus 50 mcg/dose Blister With Device 1 inh INHALATION BID RF: 0 Alvesco 80 mcg/actuation Hfa Aerosol Inhaler 1 puff INHALATION BID RF: 0 Incruse Ellipta 62.5 mcg/actuation Blister With Device 1 inh INHALATION DAILY RF: 0 Admission Data Admit Date/Time: 01/07/20 20:36 Attending Provider: Javon Hughes Admit Provider: Megan Prasad Primary Care Provider: Katalina MCLAIN Other Providers: Megan Prasad ; Lawrence Rivera Coding Level of Care Code D/C Day Management >30 mins Diagnoses Elevated troponin R79.89 Coronary artery disease I25.10 SIRS (systemic inflammatory response syndrome) R65.10 Hypoxia R09.02 Diabetes mellitus E11.9 Hypomagnesemia E83.42 HTN (hypertension), benign I10 COPD (chronic obstructive pulmonary disease) J44.9 BPH (benign prostatic hyperplasia) N40.0 Carotid artery stenosis I65.29 Edema R60.9
[2020-01-09] MEDS: cefTRIAXone SODIUM 2,000 MG in DEXTROSE 5% 50 ML IV SCH (19:49)
[2020-01-09] MEDS: TAMSULOSIN HCL 0.4 MG CAP PO SCH (19:49)
[2020-01-09] MEDS: PRAVASTATIN SOD 40 MG TAB PO SCH (19:49)
[2020-01-09] MEDS: AZITHROMYCIN 250 MG TAB PO SCH (19:49)
[2020-01-09] MEDS: MELOXICAM 7.5 MG TAB PO SCH (19:50)
[2020-01-09] MEDS: FINASTERIDE 5 MG TAB PO SCH (19:50)
--- NOTE | 2020-01-23 09:35 | Coding Query ---
SEPSIS To promote full compliance with coding requirements relating to patient care, physician participation is requested in all cases of certified procedural coder uncertainty. Please assist us with the question(s) below: In responding to this query, please exercise your independent professional judgement. The fact that a question is asked does not imply that any particular answer is desired or expected. We appreciate your clarification on this issue. Throughout the medical record, you have clearly documented a localized infection and your patient has clinical evidence of a generalized sepsis or severe sepsis. The term urosepsis is a nonspecific entity and is coded as an UTI. If the patient has sepsis, severe sepsis, from an urinary source or some other source, please clarify in your response below. The medical record reflects the following clinical findings: (With dates as appropriate) (Body temperature of >38.3 C(101 F) or <36 C(96.8F), pulse >90/minute, respirations >20/minute, WBC count >12,000 or <4,000, altered mental status, significant edema or positive fluid balance, hyperglycemia without diabetes, hypotension, metabolic acidosis (elev. lactate level, anion gap or reduced blood pH), shock, positive blood culture (enter organism) ____ ()Bacteremia (Nonspecific laboratory finding of bacteria in the blood) Specify Organism () Present on Admission () Not present on admission () Unable to clinically determine () Septicemia (Systemic disease associated with the presence of pathogenic microorganisms in the blood): Specify Organism () Present on Admission () Not present on admission () Unable to clinically determine () Sepsis Specify Organism Specify Associated Condition/Diagnosis () Present on Admission () Not present on admission () Unable to clinically determine () Severe Sepsis (Sepsis associated with acute organ dysfunction) Specify Organism Specify Associated Condition/Diagnosis () Present on Admission () Not present on admission () Unable to clinically determine () Septic Shock (Severe sepsis with acute circulatory failure, unexplained by other causes) () Present on Admission () Not present on admission () Unable to clinically determine (xx) Other, patient has: this admission was related to cardiac issues MTDD
--- NOTE | 2020-01-23 09:42 | Coding Query ---
CODING QUERY To promote full compliance with coding requirements relating to patient care, provider participation is requested in all cases of fire battalion chief uncertainty. Please assist us with the question(s) below: Coding Question(s): There is documentation in the record and on Discharge Summary of suspected pulmonary source of infection given history of COPD, productive cough and hypoxia and documentation of, "empiric antibiotic coverage for community-acquired pneumonia with Rocephin and azithromycin, CTA did not suggest pneumonia" and, "With a history of COPD and with productive cough-could be from bronchitis as no defined infiltrate seen on CXR" and, "admitting physician did not add on steroids at this time given possibility of bacterial infection and sepsis". Please specify below, regarding the pulmonary infection. ( ) Possible Pneumonia ( ) Possible Bronchitis ( ) Acute ( ) Chronic ( ) Other Pulmonary Infection, Please Specify ( xx ) Unknown Pulmonary Infection Physician's Response(s): Thank you Annie Wheeler Principal Diagnosis: "that condition established after study, to be chiefly responsible for occasioning the admission of the patient to the hospital for care." Co-Existing Principal Diagnosis: "when two or more diagnoses equally meet the criteria for principal diagnosis as determined by the circumstances of admission, diagnostic work up, and/or therapy provided, and the Alphabetic Index, Tabular List, or another coding guideline does not provide sequencing direction, any one of the diagnoses may be sequenced first." "When the physician has documented what appears to be a current diagnosis in the body of the record, but has not included the diagnosis in the final diagnostic statement, the physician should be asked whether the diagnosis should be added." ([facility] 2 QTR90. p3-4) TITA
== END 2020-01-09 22:15 | disposition short-term general hospital (02) | DRG 280 ==
LOC: ED 15:38 → 2S 20:36 → SUATTDRO 20:36 → 2S 22:16

== ENCOUNTER 2020-04-09 12:43 | Inpatient (IN) ==
--- NOTE | 2020-04-09 13:24 | Emergency Department Note ---
History of Present Illness General Chief complaint: Shortness of Breath/Dyspnea Stated complaint: sob/ [facility] Time Seen by Provider: 04/09/20 13:07 Source: patient Mode of arrival: EMS Limitations: no limitations History of Present Illness Provider complaint: Shortness of breath Onset (ago): day(s) 3 Severity: severe Current Pain Intensity: 0 Exacerbated By: + movement Associated symptoms: + cough and + malaise; no fever/chills and no nausea/vomiting This is a 80-year-old male who presents via EMS due to worsening shortness of breath of the last 3 days. Patient states he was never a smoker but does have COPD. Patient also states he underwent cardiac bypass surgery in January and has not been seen by cardiology since then. Patient states he does use oxygen daily usually 2 L/min, however yesterday it was turned up to 4 L/min due to his increased shortness of breath, and today turned up to 5 L/min. Patient states he has not noticed any change in his cough, or in his sputum which is typically colored yellow to white. Patient states he was tested for coronavirus on Monday and this was resulted as negative. Patient is from the [facility] and there have been several positive coronavirus cases there recently. Per EMS patient did have a fever for staff initially of 100.8 F. Patient was also initially found to be hypoxic at 82%, hypotensive, and tachypneic in the mid 20s. Patient was placed on a nonrebreather mask at 15 L/min by EMS, and does report that he does feel his breathing is improved. Patient denies any accompanying chest or abdominal pain, denies any increased lower extremity edema. Patient was given terbutaline prehospital by EMS as they were concerned about coronavirus and did not want to try regular nebulizer treatment and potentially aerosolized the virus in the ambulance. Pt seen during a time of high acuity and national emergency pandemic while wearing PPE. Home Medications Home Medications Medication Instructions Recorded Confirmed Type aspirin [Aspirin Low Dose] 81 mg PO QAM 06/29/18 04/09/20 History finasteride [Proscar] 5 mg PO HS 06/29/18 04/09/20 History furosemide [Lasix] 40 mg PO DAILY 06/29/18 04/09/20 History glyburide 5 mg PO BID 06/29/18 04/09/20 History levalbuterol tartrate [Xopenex HFA] 2 inh INHALATION QID PRN 06/29/18 04/09/20 History levothyroxine 75 mcg PO QAM 06/29/18 04/09/20 History metoprolol tartrate 12.5 mg PO BID 06/29/18 04/09/20 History tamsulosin [Flomax] 0.8 mg PO QPM 06/29/18 04/09/20 History ammonium lactate 1 applic TOPICAL BID 04/09/20 04/09/20 History atorvastatin 80 mg PO DAILY 04/09/20 04/09/20 History docusate sodium 250 mg PO HS 04/09/20 04/09/20 History famotidine 20 mg PO BID 04/09/20 04/09/20 History hunxvjixiul-osjeelyln-tfyynctu 1 inh INHALATION DAILY 04/09/20 04/09/20 History [Trelegy Ellipta] potassium chloride 10 meq PO BID 04/09/20 04/09/20 History warfarin 2 mg PO HS 04/09/20 04/09/20 History Allergies Allergy/AdvReac Type Severity Reaction Status Date / Time No Known Allergies Allergy Unverified 04/09/20 14:50 Past Med/Surg History Medical History (Updated 04/10/20 @ 20:23 by Andie Lebron DO) BPH (benign prostatic hyperplasia) Carotid artery stenosis COPD (chronic obstructive pulmonary disease) Coronary artery disease Diabetes mellitus Heart attack HTN (hypertension), benign Hypomagnesemia Orthostatic hypotension Prostatitis, acute Syncope Urinary retention Surgical History H/O cardiac catheterization H/O carotid endarterectomy H/O percutaneous transluminal coronary angioplasty Stented coronary artery Family History Other Family history non-contributory Social History Smoking Status: Never smoker Second Hand Exposure: No; Do You Dip or Chew Tobacco: No; Tobacco Cessation Education Requested by Patient: No Hx Alcohol Use: No Hx Substance Use: No Preferred Language: [place] Communication Ability: Effective Visual Impairment: No Limitations Hearing Ability: Normal [employer] Required: No Beliefs That Will Affect Care: None Current Living Situation: Other Current Living Situation Comment: sci Other Information That Helps Us Care for You: No Feels Safe at Home: Yes Safety Concerns: Feels Safe At This Time Assistive Devices: Cane and Glasses Review of Systems See HPI for pertinent positives & negatives. and A total of 10 systems reviewed and were otherwise negative Physical Exam Vital Signs Vital Signs - 24 hr 04/09/20 13:40 04/09/20 13:48 04/09/20 14:11 Temperature 37 C Temperature Source Oral Pulse Rate 124 H 109 H Respiratory Rate 28 H 25 H Respiratory Effort / Characteristics Spontaneous Labored Respiratory Pattern Tachypnea Blood Pressure 143/73 H Blood Pressure Mean 96 Pulse Oximetry 94 94 94 Oxygen Delivery Method Non-rebreather Non-rebreather Oxygen Flow Rate 15 15 Fraction of Inspired Oxygen 80 Sepsis Recent Fever Within 48 Hours Yes Sepsis New/Unexplained Change in Mental Status Yes Sepsis Action Taken by Nursing Physician Notified GENERAL: alert, ill appearing, well nourished, moderate to severe distress EYE EXAM: normal conjunctiva, PERRL and EOM's grossly intact OROPHARYNX: no exudate, no erythema, lips, buccal mucosa, and tongue normal and mucous membranes are moist NECK: supple, no nuchal rigidity, no adenopathy, non-tender LUNGS: Clear but decreased to auscultation. Normal chest wall mechanics, no w/r, bibasilar rales, tachypnea and increased work of breathing noted, nonrebreather mask in place and patient sats 95%, speaking in yes/no answers HEART: no murmurs, S1 normal and S2 normal, sinus tachycardia noted on the m onitor ABDOMEN: abdomen soft, non-tender, normo-active bowel sounds, no masses, no rebound or guarding. BACK: Back is symmetrical on inspection and there is no deformity, no midline tenderness, no CVA tenderness. SKIN: no rashes and no bruising UPPER EXTREMITIES: upper extremities are grossly normal. FROM, nml pulses b/l. LOWER EXTREMITIES: 1+pitting edema. FROM, nml pulses b/l. NEURO EXAM: Normal sensorium, cranial nerves II-XII grossly intact, normal speech, no gross weakness of arms, no gross weakness of legs. Gross sensation intact. Course Administered Medications Albuterol (Albut/Ipratrop 3mg/0.5mg Neb 3 Ml Vial) 3 ml NEB QIDR CHET Stop: 05/09/20 18:59 Last Admin: 04/10/20 19:13 Dose: 3 ml Documented by: [id number] Admin: 04/10/20 15:21 Dose: 3 ml Documented by: [id number] Admin: 04/10/20 11:12 Dose: 3 ml Documented by: [id number] Admin: 04/10/20 07:08 Dose: 3 ml Documented by: [id number] Admin: 04/09/20 19:18 Dose: 3 ml Documented by: [id number] Aspirin (Aspirin 81 Mg Ectab) 81 mg PO QAM CHET Stop: 05/10/20 08:59 Last Admin: 04/10/20 08:38 Dose: 81 mg Documented by: [id number] Atorvastatin Calcium (Atorvastatin 40 Mg Tab) 80 mg PO DAILY CHET Stop: 05/10/20 08:59 Last Admin: 04/10/20 08:37 Dose: 80 mg Documented by: [id number] Docusate Sodium (Docusate Sodium 100 Mg Cap) 200 mg PO HS [facility] Stop: 05/09/20 20:59 Last Admin: 04/09/20 21:44 Dose: 200 mg Documented by: [id number] Famotidine (Famotidine 20 Mg Tab) 20 mg PO BID [facility] Stop: 05/09/20 20:59 Last Admin: 04/10/20 08:38 Dose: 20 mg Documented by: [id number] Admin: 04/09/20 21:44 Dose: 20 mg Documented by: [id number] Finasteride (Finasteride 5 Mg Tab) 5 mg PO HS [facility] Stop: 05/09/20 20:59 Last Admin: 04/09/20 21:43 Dose: 5 mg Documented by: [id number] Fluticasone Furoate (Fluticasone Furoate 100mcg 14 Puffs/Inhaler) 1 puffs INH PM CHET Stop: 05/09/20 20:59 Last Admin: 04/09/20 21:41 Dose: 1 puffs Documented by: [id number] Guaifenesin (Guaifenesin 600 Mg Tabcr) 600 mg PO Q12 CHET Stop: 05/10/20 08:59 Last Admin: 04/10/20 08:38 Dose: 600 mg Documented by: [id number] Cefepime HCl 2,000 mg/ Syringe 20 mls @ 5 mls/min IV Q12 CHET; Protocol Stop: 04/16/20 20:59 Last Admin: 04/10/20 08:40 Dose: 5 mls/min Documented by: [id number] Admin: 04/09/20 21:30 Dose: 5 mls/min Documented by: [id number] Potassium Acetate 20 meq/ (Sodium Chloride) 1,010 mls @ 125 mls/hr IV .Q8H5M [facility] Stop: 05/10/20 15:14 Last Admin: 04/10/20 16:43 Dose: 125 mls/hr Documented by: [id number] Insulin Aspart (Insulin Aspart 100 Units/Ml 3 Ml Pen) 0 units SC ACHS CHET Stop: 05/09/20 20:59 Last Admin: 04/10/20 17:46 Dose: Not Given Documented by: [id number] Cosigned by: [id number] Admin: 04/10/20 13:22 Dose: Not Given Documented by: [id number] Cosigned by: [id number] Admin: 04/10/20 09:24 Dose: Not Given Documented by: [id number] Cosigned by: [id number] Admin: 04/09/20 21:42 Dose: 1 units Documented by: [id number] Cosigned by: [id number] Levothyroxine Sodium (Levothyroxine Sodium 75 Mcg Tablet) 75 mcg PO DAILYBB [facility] Stop: 05/10/20 06:29 Last Admin: 04/10/20 06:25 Dose: 75 mcg Documented by: [id number] Tamsulosin HCl (Tamsulosin Hcl 0.4 Mg Cap) 0.8 mg PO QPM CHET Stop: 05/09/20 20:59 Last Admin: 04/09/20 21:43 Dose: 0.8 mg Documented by: [id number] Umeclidinium/Vilanterol (Umeclidinium/Vilanterol 62.5/25mcg 7 Puffs/Inhaler) 1 puffs INH PM CHET Stop: 05/09/20 20:59 Last Admin: 04/09/20 21:40 Dose: 1 puffs Documented by: [id number] Warfarin Sodium (Warfarin Sod 2 Mg Tab) 2 mg PO DAILY@1600 [facility] Stop: 05/09/20 15:59 Last Admin: 04/10/20 16:36 Dose: 2 mg Documented by: [id number] Admin: 04/09/20 19:08 Dose: 2 mg Documented by: [id number] Discontinued Medications Acetaminophen (Acetaminophen 325 Mg Tab) 650 mg PO Q4H PRN PRN Reason: Pain or Fever Stop: 05/09/20 18:01 Last Admin: 04/09/20 22:01 Dose: 650 mg Documented by: [id number] Azithromycin (Azithromycin 250 Mg Tab) 250 mg PO QAM CHET Stop: 04/14/20 08:59 Last Admin: 04/10/20 08:38 Dose: 250 mg Documented by: [id number] Furosemide (Furosemide 40 Mg/4 Ml Vial) 40 mg IV NOW STA Stop: 04/09/20 13:57 Last Admin: 04/09/20 14:34 Dose: 40 mg Documented by: [id number] Cefepime HCl (Maxipime) 2,000 mg in 20 mls @ 5 mls/min IV NOW STA; Protocol Stop: 04/09/20 14:13 Last Admin: 04/09/20 14:34 Dose: 5 mls/min Documented by: [id number] Vancomycin HCl 2,500 mg/ (Sodium Chloride) 550 mls @ 200 mls/hr IV NOW ONE Stop: 04/09/20 16:54 Last Infusion: 04/09/20 17:35 Dose: 0 mls/hr Documented by: [id number] Admin: 04/09/20 14:34 Dose: 200 mls/hr Documented by: [id number] Azithromycin 500 mg/ Dextrose 255 mls @ 125 mls/hr IV ONE ONE Stop: 04/09/20 21:02 Last Infusion: 04/09/20 21:48 Dose: 0 mls/hr Documented by: [id number] Admin: 04/09/20 19:08 Dose: 125 mls/hr Documented by: [id number] Vancomycin HCl 1,500 mg/ (Sodium Chloride) 530 mls @ 200 mls/hr IV Q16H [facility] Stop: 04/17/20 01:59 Last Infusion: 04/10/20 04:53 Dose: 0 mls/hr Documented by: [id number] Infusion: 04/10/20 02:51 Dose: 200 mls/hr Documented by: [id number] Infusion: 04/10/20 01:52 Dose: 0 mls/hr Documented by: [id number] Admin: 04/10/20 01:26 Dose: 200 mls/hr Documented by: [id number] Sodium Chloride (Nss 1000ml) 1,000 mls @ 160 mls/hr IV .Q6H15M [facility] Stop: 05/09/20 23:29 Last Infusion: 04/10/20 16:33 Dose: 0 mls/hr Documented by: [id number] Admin: 04/10/20 08:34 Dose: 160 mls/hr Documented by: [id number] Infusion: 04/10/20 08:34 Dose: 125 mls/hr Documented by: [id number] Admin: 04/10/20 01:10 Dose: 125 mls/hr Documented by: [id number] Sodium Chloride (Nss 1000ml) 1,000 mls @ 999 mls/hr IV .Q1H1M ONE Stop: 04/10/20 00:45 Last Admin: 04/10/20 00:47 Dose: Not Given Documented by: [id number] Sodium Chloride (Nss 1000ml) 500 mls @ 999 mls/hr IV .Q31M ONE Stop: 04/10/20 00:16 Last Infusion: 04/10/20 00:47 Dose: 0 mls/hr Documented by: [id number] Admin: 04/09/20 23:50 Dose: 999 mls/hr Documented by: [id number] Sodium Chloride (Nss 1000ml) 500 mls @ 999 mls/hr IV .Q31M ONE Stop: 04/10/20 00:59 Last Infusion: 04/10/20 01:22 Dose: 0 mls/hr Documented by: [id number] Admin: 04/10/20 00:46 Dose: 999 mls/hr Documented by: [id number] Albumin Human (Albumin 25%) 12.5 gm in 50 mls @ 50 mls/hr IV Q1H CHET Stop: 04/10/20 03:29 Last Infusion: 04/10/20 03:25 Dose: 0 mls/hr Documented by: [id number] Admin: 04/10/20 02:34 Dose: 50 mls/hr Documented by: [id number] Infusion: 04/10/20 02:34 Dose: 50 mls/hr Documented by: [id number] Admin: 04/10/20 01:49 Dose: 50 mls/hr Documented by: [id number] Acetaminophen (Ofirmev) 1,000 mg in 100 mls @ 400 mls/hr IV NOW STA Stop: 04/10/20 01:53 Last Infusion: 04/10/20 02:51 Dose: 0 mls/hr Documented by: [id number] Admin: 04/10/20 02:34 Dose: 400 mls/hr Documented by: [id number] Azithromycin 250 mg/ Dextrose 252.5 mls @ 126.25 mls/hr IV TODAY@1400 ONE; Protocol Stop: 04/10/20 15:59 Last Infusion: 04/10/20 17:49 Dose: 0 mls/hr Documented by: [id number] Admin: 04/10/20 15:34 Dose: 126.3 mls/hr Documented by: [id number] Metoprolol Tartrate (Metoprolol Tartrate 25 Mg Tab) 12.5 mg PO BID CHET Stop: 05/09/20 20:59 Last Admin: 04/09/20 21:44 Dose: 12.5 mg Documented by: [id number] Critical Care Time Critical Care Time: Yes Total Critical Care Time: 46 Critical care of 46 min performed to assess and manage high likelihood of life- threatening sepsis and respiratory failure, involving labs and imaging performed with assessment to evaluate sepsis and respiratory failure diagnosis with frequent reassessment. This time includes bedside time, treatment discussions with patient/family/consultants, documentation time and excludes procedure time. Medical Decision Making Differential Diagnosis Differential diagnoses includes but is not limited to pneumonia, bronchitis, COPD/Asthma exacerbation, pneumothorax, pulmonary embolism, congestive heart failure, acute coronary syndrome Medical Records Attestation: I reviewed the patient's medical records. Home Medications Current Medication List: was personally reviewed by me Laboratory Data Attestation: I reviewed the patient's lab results. Result diagrams: 04/10/20 06:32 04/10/20 06:32 Lab Results 04/09/20 04/09/20 04/09/20 Range/Units 13:10 13:10 13:10 WBC 25.47 H (4.8-10.8) K/uL RBC 5.07 (4.7-6.1) M/uL Hgb 12.5 L (14.0-18.0) g/dL Hct 40.8 L (42-52) % MCV 80.5 (80-100) fL MCH 24.7 L (25-34) pg MCHC 30.6 L (32-36) g/dL RDW Std Deviation 49.8 H (36.4-46.3) fL RDW Coeff of Brigid 16.9 H (11.5-14.5) % Plt Count 240 (130-400) K/uL MPV 11.8 H (7.4-10.4) fL Immature Gran % (Auto) 0.7 % Neut % (Auto) 83.9 % Lymph % (Auto) 3.6 % Teller % (Auto) 11.7 % Eos % (Auto) 0.0 % Baso % (Auto) 0.1 % Neut # (Auto) 21.40 H (1.4-6.5) K/uL Lymph # (Auto) 0.91 L (1.2-3.4) K/uL Teller # (Auto) 2.97 H (0.11-0.59) K/uL Eos # (Auto) 0.00 (0-0.5) K/uL Baso # (Auto) 0.02 (0-0.2) K/uL Immature Gran # (Auto) 0.17 H (0.00-0.02) K/uL Anisocytosis Present Microcytosis Present Echinocytes 1+ PT 18.6 H (9.0-12.0) Seconds INR 1.8 H (0.9-1.1) APTT 35.2 H (21.0-31.0) Seconds PTT Ratio 1.3 Sodium 135 L (136-145) mmol/L Potassium 4.0 (3.5-5.1) mmol/L Chloride 102 (98-107) mmol/L Carbon Dioxide 26 (21-32) mmol/L Anion Gap 7.0 (3-11) BUN 17 (7-18) mg/dl Creatinine 1.43 H (0.6-1.4) mg/dl Est Cr Clr Drug Dosing 54.1 ml/min Est GFR ( Amer) 53.6 Est GFR (Non-Af Amer) 46.3 BUN/Creatinine Ratio 11.6 (10-20) Glucose 117 H (70-99) mg/dl Lactate (0.4-2.0) mmol/L Calcium 8.7 (8.5-10.1) mg/dl Magnesium 1.9 (1.8-2.4) mg/dl Total Bilirubin 1.2 H (0.2-1) mg/dl AST 12 L (15-37) U/L ALT 17 (12-78) U/L Alkaline Phosphatase 79 (45-117) U/L Troponin I < 0.015 (0-0.045) ng/ml NT-Pro-B Natriuret Pep 8296 H (0-1800) pg/ml Total Protein 7.2 (6.4-8.2) gm/dl Albumin 2.6 L (3.4-5.0) gm/dl Globulin 4.6 H (2.5-4.0) gm/dl Albumin/Globulin Ratio 0.6 L (0.9-2) Procalcitonin (0-0.5) ng/ml Urine Color Urine Appearance (Clear) Urine pH (4.5-7.5) Ur Specific [place] (1.000-1.030) Urine Protein (Negative) Urine Glucose (UA) (Negative) Urine Ketones (Negative) Urine Blood (Negative) Urine Nitrite (Negative) Urine Bilirubin (Negative) Urine Urobilinogen (Negative) Ur Leukocyte Esterase (Negative) Urine WBC (Auto) (0-5) /hpf Urine RBC (Auto) (0-4) /hpf U Hyaline Cast (Auto) (0-5) /lpf U Epithel Cells (Auto) (0-5) /lpf Urine Bacteria (Auto) (Negative) Adenovirus (PCR) (NotDetected) B. pertussis DNA (PCR) (NotDetected) B.parapertussis DNA PCR (NotDetected) C. pneumoniae DNA (PCR) (NotDetected) Coronavirus OC43 (PCR) (NotDetected) Coronavirus HKU1 (PCR) (NotDetected) Coronavirus 229E (PCR) (NotDetected) COVID-19 PCR (NotDetected) Coronavirus NL63 (PCR) (NotDetected) Human Metapneumovir PCR (NotDetected) Influenza Type A (PCR) (NotDetected) Influ A Molecular Assay (Negative) Influenza Type B (PCR) (NotDetected) Influ B Molecular Assay (Negative) M. pneumoniae (PCR) (NotDetected) Parainfluenza 1 (PCR) (NotDetected) Parainfluenza 2 (PCR) (NotDetected) Parainfluenza 3 (PCR) (NotDetected) Parainfluenza 4 (PCR) (NotDetected) RSV (PCR) (NotDetected) Entero/Rhino (PCR) (NotDetected) 04/09/20 04/09/2004/09/20 Range/Units 13:10 13:10 13:10 WBC (4.8-10.8) K/uL RBC (4.7-6.1) M/uL Hgb (14.0-18.0) g/dL Hct (42-52) % MCV (80-100) fL MCH (25-34) pg MCHC (32-36) g/dL RDW Std Deviation (36.4-46.3) fL RDW Coeff of Brigid (11.5-14.5) % Plt Count (130-400) K/uL MPV (7.4-10.4) fL Immature Gran % (Auto) % Neut % (Auto) % Lymph % (Auto) % Teller % (Auto) % Eos % (Auto) % Baso % (Auto) % Neut # (Auto) (1.4-6.5) K/uL Lymph # (Auto) (1.2-3.4) K/uL Teller # (Auto) (0.11-0.59) K/uL Eos # (Auto) (0-0.5) K/uL Baso # (Auto) (0-0.2) K/uL Immature Gran # (Auto) (0.00-0.02) K/uL Anisocytosis Microcytosis Echinocytes PT (9.0-12.0) Seconds INR (0.9-1.1) APTT (21.0-31.0) Seconds PTT Ratio Sodium (136-145) mmol/L Potassium (3.5-5.1) mmol/L Chloride (98-107) mmol/L Carbon Dioxide (21-32) mmol/L Anion Gap (3-11) BUN (7-18) mg/dl Creatinine (0.6-1.4) mg/dl Est Cr Clr Drug Dosing ml/min Est GFR ( Amer) Est GFR (Non-Af Amer) BUN/Creatinine Ratio (10-20) Glucose (70-99) mg/dl Lactate 3.8 H* (0.4-2.0) mmol/L Calcium (8.5-10.1) mg/dl Magnesium (1.8-2.4) mg/dl Total Bilirubin (0.2-1) mg/dl AST (15-37) U/L ALT (12-78) U/L Alkaline Phosphatase (45-117) U/L Troponin I (0-0.045) ng/ml NT-Pro-B Natriuret Pep Cancelled (0-1800) pg/ml Total Protein (6.4-8.2) gm/dl Albumin (3.4-5.0) gm/dl Globulin (2.5-4.0) gm/dl Albumin/Globulin Ratio (0.9-2) Procalcitonin 1.03 H (0-0.5) ng/ml Urine Color Urine Appearance (Clear) Urine pH (4.5-7.5) Ur Specific [place] (1.000-1.030) Urine Protein (Negative) Urine Glucose (UA) (Negative) Urine Ketones (Negative) Urine Blood (Negative) Urine Nitrite (Negative) Urine Bilirubin (Negative) Urine Urobilinogen (Negative) Ur Leukocyte Esterase (Negative) Urine WBC (Auto) (0-5) /hpf Urine RBC (Auto) (0-4) /hpf U Hyaline Cast (Auto) (0-5) /lpf U Epithel Cells (Auto) (0-5) /lpf Urine Bacteria (Auto) (Negative) Adenovirus (PCR) (NotDetected) B. pertussis DNA (PCR) (NotDetected) B.parapertussis DNA PCR (NotDetected) C. pneumoniae DNA (PCR) (NotDetected) Coronavirus OC43 (PCR) (NotDetected) Coronavirus HKU1 (PCR) (NotDetected) Coronavirus 229E (PCR) (NotDetected) COVID-19 PCR (NotDetected) Coronavirus NL63 (PCR) (NotDetected) Human Metapneumovir PCR (NotDetected) Influenza Type A (PCR) (NotDetected) Influ A Molecular Assay (Negative) Influenza Type B (PCR) (NotDetected) Influ B Molecular Assay (Negative) M. pneumoniae (PCR) (NotDetected) Parainfluenza 1 (PCR) (NotDetected) Parainfluenza 2 (PCR) (NotDetected) Parainfluenza 3 (PCR) (NotDetected) Parainfluenza 4 (PCR) (NotDetected) RSV (PCR) (NotDetected) Entero/Rhino (PCR) (NotDetected) 04/09/20 04/09/20 04/09/20 Range/Units 13:30 14:15 15:34 WBC (4.8-10.8) K/uL RBC (4.7-6.1) M/uL Hgb (14.0-18.0) g/dL Hct (42-52) % MCV (80-100) fL MCH (25-34) pg MCHC (32-36) g/dL RDW Std Deviation (36.4-46.3) fL RDW Coeff of Brigid (11.5-14.5) % Plt Count (130-400) K/uL MPV (7.4-10.4) fL Immature Gran % (Auto) % Neut % (Auto) % Lymph % (Auto) % Teller % (Auto) % Eos % (Auto) % Baso % (Auto) % Neut # (Auto) (1.4-6.5) K/uL Lymph # (Auto) (1.2-3.4) K/uL Teller # (Auto) (0.11-0.59) K/uL Eos # (Auto) (0-0.5) K/uL Baso # (Auto) (0-0.2) K/uL Immature Gran # (Auto) (0.00-0.02) K/uL Anisocytosis Microcytosis Echinocytes PT (9.0-12.0) Seconds INR (0.9-1.1) APTT (21.0-31.0) Seconds PTT Ratio Sodium (136-145) mmol/L Potassium (3.5-5.1) mmol/L Chloride (98-107) mmol/L Carbon Dioxide (21-32) mmol/L Anion Gap (3-11) BUN (7-18) mg/dl Creatinine (0.6-1.4) mg/dl Est Cr Clr Drug Dosing ml/min Est GFR ( Amer) Est GFR (Non-Af Amer) BUN/Creatinine Ratio (10-20) Glucose (70-99) mg/dl Lactate 3.7 H* (0.4-2.0) mmol/L Calcium (8.5-10.1) mg/dl Magnesium (1.8-2.4) mg/dl Total Bilirubin (0.2-1) mg/dl AST (15-37) U/L ALT (12-78) U/L Alkaline Phosphatase (45-117) U/L Troponin I (0-0.045) ng/ml NT-Pro-B Natriuret Pep (0-1800) pg/ml Total Protein (6.4-8.2) gm/dl Albumin (3.4-5.0) gm/dl Globulin (2.5-4.0) gm/dl Albumin/Globulin Ratio (0.9-2) Procalcitonin (0-0.5) ng/ml Urine Color Urine Appearance (Clear) Urine pH (4.5-7.5) Ur Specific [place] (1.000-1.030) Urine Protein (Negative) Urine Glucose (UA) (Negative) Urine Ketones (Negative) Urine Blood (Negative) Urine Nitrite (Negative) Urine Bilirubin (Negative) Urine Urobilinogen (Negative) Ur Leukocyte Esterase (Negative) Urine WBC (Auto) (0-5) /hpf Urine RBC (Auto) (0-4) /hpf U Hyaline Cast (Auto) (0-5) /lpf U Epithel Cells (Auto) (0-5) /lpf Urine Bacteria (Auto) (Negative) Adenovirus (PCR) Not Detected (NotDetected) B. pertussis DNA (PCR) Not Detected (NotDetected) B.parapertussis DNA PCR Not Detected (NotDetected) C. pneumoniae DNA (PCR) Not Detected (NotDetected) Coronavirus OC43 (PCR) Not Detected (NotDetected) Coronavirus HKU1 (PCR) Not Detected (NotDetected) Coronavirus 229E (PCR) Not Detected (NotDetected) COVID-19 PCR Not Detected (NotDetected) Coronavirus NL63 (PCR) Not Detected (NotDetected) Human Metapneumovir PCR Not Detected (NotDetected) Influenza Type A (PCR) Not Detected (NotDetected) Influ A Molecular Assay Negative (Negative) Influenza Type B (PCR) Not Detected (NotDetected) Influ B Molecular Assay Negative (Negative) M. pneumoniae (PCR) Not Detected (NotDetected) Parainfluenza 1 (PCR) Not Detected (NotDetected) Parainfluenza 2 (PCR) Not Detected (NotDetected) Parainfluenza 3 (PCR) Not Detected (NotDetected) Parainfluenza 4 (PCR) Not Detected (NotDetected) RSV (PCR) Not Detected (NotDetected) Entero/Rhino (PCR) Not Detected (NotDetected) 04/09/20 Range/Units 16:00 WBC (4.8-10.8) K/uL RBC (4.7-6.1) M/uL Hgb (14.0-18.0) g/dL Hct (42-52) % MCV (80-100) fL MCH (25-34) pg MCHC (32-36) g/dL RDW Std Deviation (36.4-46.3) fL RDW Coeff of Brigid (11.5-14.5) % Plt Count (130-400) K/uL MPV (7.4-10.4) fL Immature Gran % (Auto) % Neut % (Auto) % Lymph % (Auto) % Teller % (Auto) % Eos % (Auto) % Baso % (Auto) % Neut # (Auto) (1.4-6.5) K/uL Lymph # (Auto) (1.2-3.4) K/uL Teller # (Auto) (0.11-0.59) K/uL Eos # (Auto) (0-0.5) K/uL Baso # (Auto) (0-0.2) K/uL Immature Gran # (Auto) (0.00-0.02) K/uL Anisocytosis Microcytosis Echinocytes PT (9.0-12.0) Seconds INR (0.9-1.1) APTT (21.0-31.0) Seconds PTT Ratio Sodium (136-145) mmol/L Potassium (3.5-5.1) mmol/L Chloride (98-107) mmol/L Carbon Dioxide (21-32) mmol/L Anion Gap (3-11) BUN (7-18) mg/dl Creatinine (0.6-1.4) mg/dl Est Cr Clr Drug Dosing ml/min Est GFR ( Amer) Est GFR (Non-Af Amer) BUN/Creatinine Ratio (10-20) Glucose (70-99) mg/dl Lactate (0.4-2.0) mmol/L Calcium (8.5-10.1) mg/dl Magnesium (1.8-2.4) mg/dl Total Bilirubin (0.2-1) mg/dl AST (15-37) U/L ALT (12-78) U/L Alkaline Phosphatase (45-117) U/L Troponin I (0-0.045) ng/ml NT-Pro-B Natriuret Pep (0-1800) pg/ml Total Protein (6.4-8.2) gm/dl Albumin (3.4-5.0) gm/dl Globulin (2.5-4.0) gm/dl Albumin/Globulin Ratio (0.9-2) Procalcitonin (0-0.5) ng/ml Urine Color Yellow Urine Appearance Clear (Clear) Urine pH 5.0 (4.5-7.5) Ur Specific [place] 1.016 (1.000-1.030) Urine Protein Trace H (Negative) Urine Glucose (UA) Negative (Negative) Urine Ketones Negative (Negative) Urine Blood 1+ H (Negative) Urine Nitrite Positive A (Negative) Urine Bilirubin Negative (Negative) Urine Urobilinogen Negative (Negative) Ur Leukocyte Esterase 1+ H (Negative) Urine WBC (Auto) 10-30 H (0-5) /hpf Urine RBC (Auto) 0-4 (0-4) /hpf U Hyaline Cast (Auto) 1-5 (0-5) /lpf U Epithel Cells (Auto) 0-5 (0-5) /lpf Urine Bacteria (Auto) Negative (Negative) Adenovirus (PCR) (NotDetected) B. pertussis DNA (PCR) (NotDetected) B.parapertussis DNA PCR (NotDetected) C. pneumoniae DNA (PCR) (NotDetected) Coronavirus OC43 (PCR) (NotDetected) Coronavirus HKU1 (PCR) (NotDetected) Coronavirus 229E (PCR) (NotDetected) COVID-19 PCR (NotDetected) Coronavirus NL63 (PCR) (NotDetected) Human Metapneumovir PCR (NotDetected) Influenza Type A (PCR) (NotDetected) Influ A Molecular Assay (Negative) Influenza Type B (PCR) (NotDetected) Influ B Molecular Assay (Negative) M. pneumoniae (PCR) (NotDetected) Parainfluenza 1 (PCR) (NotDetected) Parainfluenza 2 (PCR) (NotDetected) Parainfluenza 3 (PCR) (NotDetected) Parainfluenza 4 (PCR) (NotDetected) RSV (PCR) (NotDetected) Entero/Rhino (PCR) (NotDetected) Imaging Data Radiologist's Impression: XR chest 1V portable HISTORY: SEPSIS COMPARISON: Chest 01/08/2020. FINDINGS: No pneumothorax. The heart remains enlarged. There are poststernotomy changes. Small left and trace right pleural effusions with bibasilar airspace opacities. Mild diffuse interstitial thickening, unchanged. This is likely chronic. No evidence for pulmonary edema. IMPRESSION: Interval development of bilateral pleural effusions and bibasilar densities. This may represent a pneumonia. ACT 112: Negative or not required by law. Electronically signed by: Hermann Maya M.D. 04/09/2020 1:55 PM ECG Data Attestation: I personally reviewed and interpreted this ECG as follows: Indication: + SOB/dyspnea Rate (beats per minute): 124 Rhythm: + sinus tachycardia ECG Intervals/blocks: + IVCD and + Normal QT ECG Center: + Left axis deviation ECG ST segments: + Nonspecific ST abnormalities MDM Narrative This is an elderly male prisoner who presents with increased shortness of breath and hypoxia. Patient markedly ill-appearing on initial evaluation and immediately placed on BiPAP. This did significantly help patient's increased work of breathing. Patient had bilateral rails and bilateral mild lower extr emity edema. Given his heart history as he stated he had just recently had bypass surgery 2 months ago, my first consideration was for acute pulmonary edema/CHF. Patient had denied fevers, cough or cold symptoms. Patient was given Lasix, in between BiPAP and Lasix his heart rate started to improve, his work of breathing improved, as we awaited other labs and testing. Patient was rechecked multiple times. As additional blood work were given to rule back, patient had a marked leukocytosis, and chest x-ray revealed bilateral pleural effusions with concern for possible underlying pneumonia. Given leukocytosis, I felt this was highly likely and patient was given antibiotics. As I evaluated the labs are noted there were labs also present from 1 day prior which revealed a significant leukocytosis as well as an apparent UTI. This was unknown to the patient. Patient had elevated lactic acid and procalcitonin, and clinically labs and findings of UTI as well as possible occult pneumonia meets sepsis more likely diagnosis. Patient remained hemodynamically stable and improved while in the emergency room. Initial fluid resuscitation had been withheld due to concern for volume overload. This was discussed with the admitting hospitalist. After additional information was known, he did add IV fluids at a maintenance level as a precaution until we knew more about the patient's cardiac status. Patient's bio fire including a COVID-19 test were negative. Patient denied any prior history of pneumonia. Patient was made aware of all results and need for additional inpatient monitoring and treatment, verbalized understanding and was in agreement with plan. An order was placed for continuous cardiac monitoring. The monitor shows a rate of 122_ with _sinus tachycardia_ rhythm. Impression & Plan Sepsis, Respiratory failure, Pneumonia, Acute UTI (urinary tract infection), BRETT (acute kidney injury) Discharge Plan Visit Data Chief Complaint: Shortness of Breath/Dyspnea Stated Complaint: sob/ [facility] ED Provider: Andie Lebron Discharge Problem: Sepsis, Respiratory failure, Pneumonia, Acute UTI (urinary tract infection), BRETT (acute kidney injury) Patient Disposition: Admitted As Inpatient Discharge Instructions Interventions: ED Discharge Assessment Last Done: 04/09/20 17:38 Discharge Problem: Sepsis Qualifiers: Sepsis type: sepsis due to unspecified organism Sepsis acute organ dysfunction status: with acute organ dysfunction Severe sepsis acute organ dysfunction type: acute respiratory failure Acute respiratory failure type: with hypoxia Severe sepsis shock status: without septic shock Qualified Code(s): A41.9 - Sepsis, unspecified organism Respiratory failure Qualifiers: Chronicity: acute Respiratory failure complication: hypoxia Qualified Code(s): J96.01 - Acute respiratory failure with hypoxia Pneumonia Qualifiers: Pneumonia type: due to unspecified organism Laterality: bilateral Lung location: lower lobe of lung Qualified Code(s): J18.9 - Pneumonia, unspecified organism
[2020-04-09 13:56] LABS: Hematocrit (blood only) 40.8 % (42-52); Hemoglobin 12.5 g/dL (14.0-18.0); Mean Corpuscular Hemoglobin 24.7 pg (25-34); Mean Corpuscular Hgb Conc 30.6 g/dL (32-36); Mean Corpuscular Volume 80.5 fL (80-100); Mean Platelet Volume 11.8 fL (7.4-10.4); Platelet Count 240 K/uL (130-400); RDW Coefficient of Variation 16.9 % (11.5-14.5); RDW Standard Deviation 49.8 fL (36.4-46.3); Red Blood Count 5.07 M/uL (4.7-6.1); White Blood Count 25.47 K/uL (4.8-10.8)
[2020-04-09] MEDS ORDERED: FUROSEMIDE 40 MG/4 ML VIAL IV STA (13:56)
--- NOTE | 2020-04-09 13:57 | XRay Report ---
XR chest 1V portable HISTORY: SEPSIS COMPARISON: Chest 01/08/2020. FINDINGS: No pneumothorax. The heart remains enlarged. There are poststernotomy changes. Small left a nd trace right pleural effusions with bibasilar airspace opacities. Mild diffuse interstitial thicken ing, unchanged. This is likely chronic. No evidence for pulmonary edema. IMPRESSION: Interval development of bilateral pleural effusions and bibasilar densities. This may represent a pne umonia. ACT 112: Negative or not required by law. Electronically signed by: Hermann Maya M.D. 04/09/2020 1:55 PM
[2020-04-09 14:07] LABS: INR 1.8 (0.9-1.1); Partial Thromboplastin Ratio 1.3; Partial Thromboplastin Time 35.2 Seconds (21.0-31.0); Prothrombin Time 18.6 Seconds (9.0-12.0)
[2020-04-09 14:10] LABS: Alanine Aminotransferase 17 U/L (12-78); Albumin Level 2.6 gm/dl (3.4-5.0); Aspartate Aminotransferase 12 U/L (15-37); BUN Creatinine Ratio 11.6 (10-20); Blood Urea Nitrogen 17 mg/dl (7-18); Calcium 8.7 mg/dl (8.5-10.1); Carbon Dioxide 26 mmol/L (21-32); Chloride 102 mmol/L (98-107); Creatinine Clr Calc Pharmacy 54.1 ml/min; Est GFR (African American) 53.6; Est GFR (Non-African American) 46.3; Glucose 117 mg/dl (70-99); Magnesium 1.9 mg/dl (1.8-2.4); Sodium 135 mmol/L (136-145)
[2020-04-09] MEDS ORDERED: VANCOMYCIN CONSULT ACTIVE PRN ×2 (14:10)
[2020-04-09] MEDS ORDERED: CEFEPIME 2,000 MG/20 ML VIAL IV STA (14:10)
[2020-04-09] MEDS ORDERED: VANCOMYCIN HCL 2,500 MG in SODIUM CHLORIDE 0.9% 500 ML IV ONE (14:10)
[2020-04-09 14:15] LABS: Albumin Globulin Ratio 0.6 (0.9-2); Alkaline Phosphatase 79 U/L (45-117); Bilirubin,Total 1.2 mg/dl (0.2-1); Globulin 4.6 gm/dl (2.5-4.0); Total Protein 7.2 gm/dl (6.4-8.2); Troponin I < 0.015 ng/ml (0-0.045)
[2020-04-09 14:16] LABS: Anisocytosis Present; Basophils # (auto) 0.02 K/uL (0-0.2); Basophils % (auto) 0.1 %; Echinocytes 1+; Immature Granulocytes # (auto) 0.17 K/uL (0.00-0.02); Immature Granulocytes % (auto) 0.7 %; Lymphocytes # (auto) 0.91 K/uL (1.2-3.4); Lymphocytes % (auto) 3.6 %; Microcytosis Present; Monocytes # (auto) 2.97 K/uL (0.11-0.59); Monocytes % (auto) 11.7 %; Neutrophils % (auto) 83.9 %
[2020-04-09 14:40] LABS: Influenza A virus by PCR Negative (Negative); Influenza B virus by PCR Negative (Negative)
[2020-04-09 15:26] LABS: Adenovirus PCR Not Detected (NotDetected); Bordetella parapertussis PCR Not Detected (NotDetected); Bordetella pertussis PCR Not Detected (NotDetected); Chlamydia pneumoniae PCR Not Detected (NotDetected); Coronavirus 229E PCR Not Detected (NotDetected); Coronavirus CoV-2 (COVID19)PCR Not Detected (NotDetected); Coronavirus HKU1 PCR Not Detected (NotDetected); Coronavirus NL63 PCR Not Detected (NotDetected); Coronavirus OC43PCR Not Detected (NotDetected); Human Metapneumovirus PCR Not Detected (NotDetected); Influenza A PCR Not Detected (NotDetected); Influenza B PCR Not Detected (NotDetected); Mycoplasma pneumoniae PCR Not Detected (NotDetected); Parainfluenza Virus 1 PCR Not Detected (NotDetected); Parainfluenza Virus 2 PCR Not Detected (NotDetected); Parainfluenza Virus 3 PCR Not Detected (NotDetected); Parainfluenza Virus 4 PCR Not Detected (NotDetected); Respiratory Syncytial VirusPCR Not Detected (NotDetected); Rhinovirus/Enterovirus PCR Not Detected (NotDetected)
[2020-04-09 16:39] LABS: Appearance Urine Clear (Clear); Bacteria Urine Automated Negative (Negative); Bilirubin Urine Negative (Negative); Blood Urine 1+ (Negative); Color Urine Yellow; Epithelial Cell Urine Auto 0-5 /lpf (0-5); Glucose Urine UA Negative (Negative); Ketones Urine Negative (Negative); Leukocyte Esterase Urine 1+ (Negative); Nitrite Urine Positive (Negative); Protein Urine Trace (Negative); RBC Urine Automated 0-4 /hpf (0-4); Specific Gravity Urine 1.016 (1.000-1.030); Urobilinogen Urine Negative (Negative)
--- NOTE | 2020-04-09 16:45 | History & Physical Report ---
Date of Service April 09, 2020 Assessment & Plan (1) Acute respiratory failure with hypoxia: Aim O2 sats > 90%, Continue BiPAP. Secondary to bilateral pleural effusions, PNA +/- acute CHF. (2) Sepsis: Elevated WBC, respiratory rate. Suspected source pneumonia versus urine Elevated lactate and BP mildly improved with Lasix therefore usual IV fluid bolus not given. Follow up urine and blood cultures. (3) UTI (urinary tract infection): No pyelonephritis per exam therefore will consider prostatitis if PNA r/o as cause for his sepsis. Continue vancomycin and cefepime as above Follow-up urine and blood cultures (4) Bacterial pneumonia: SARS-CoV-2 negative MRSA nasal swab - although will wait for urine culture to be resulted prior to stopping vancomycin. Continue vancomycin, cefepime. Add azithromycin. (5) Diabetes mellitus: HbA1c 7.4 in December. Hold outpatient Metformin and glyburide. NovoLog sliding scale for correction only, will add Lantus if using > 10 units daily. (6) HTN (hypertension), benign: Continue metoprolol tartrate 12.5 mg p.o. twice daily with hold parameters. (7) COPD (chronic obstructive pulmonary disease): Does not appear to be in acute exacerbation with no wheezing on exam although also not moving much air. Steroids deferred at the current time due to suspected low benefit, risk of worsening sepsis and hyperglycemia. DuoNebs 4 times daily and as needed (8) Acute congestive heart failure: Questionable diagnosis as appears relatively dry on exam however recent history of NSTEMI, elevated BNP and improvement in blood pressure with Lasix favors this diagnosis. No fluid restriction. Hold further lasix dosing, pending repeat Cr. (9) Bilateral pleural effusion: ?secondary to PNA vs. CHF. Management as above. (10) BPH (benign prostatic hyperplasia): Urinary catheter placed in ER for sepsis management. Continue tamsulosin 0.8 mg p.o. every afternoon as long as systolic blood pressure > 100. (11) DVT prophylaxis: Continue warfarin. PTINR daily. Admission and Anticipated Discharge Date Admission Date: 04/09/2020 History of Present Illness Chief Complaint: Fever, hypoxia, low grade fever. Primary Care Provider: [facility] Moreno Douglas is a 80-year-old male with T2DM, BPH, COPD and chronic congestive heart failure, recent NSTEMI s/p bypass who presents to the ER from [facility] with fever, hypoxia, hypotension and shortness of breath. Symptoms progressively getting worse over the last 3 days, with increasing productive yellow cough. No chest pain. Chronically the patient is on 2L O2 however increasing O2 requirement yesterday to 4L and hypoxic with O2 sats @ 82%. No ass ociated lower extremity swelling. Labs taken yesterday concerning for elevated WBC 26.22 with UA grossly positive for infection. Recently hospitalized here in January for NSTEMI and subsequently underwent cardiac bypass in [facility]. In the ER CXR was concerning bilateral pleural effusions and bibasilar densities. He was treated with vancomycin and cefepime to cover for PNA. There w as also concern for acute CHF and given 40mg IV lasix. Allergies Allergy/AdvReac Type Severity Reaction Status Date / Time No Known Allergies Allergy Unverified 04/09/20 14:50 Home Medications Home Medications Medication Instructions Recorded Confirmed Type aspirin [Aspirin Low Dose] 81 mg PO QAM 06/29/18 04/09/20 History finasteride [Proscar] 5 mg PO HS 06/29/18 04/09/20 History furosemide [Lasix] 40 mg PO DAILY 06/29/18 04/09/20 History glyburide 5 mg PO BID 06/29/18 04/09/20 History levalbuterol tartrate [Xopenex HFA] 2 inh INHALATION QID PRN 06/29/18 04/09/20 History levothyroxine 75 mcg PO QAM 06/29/18 04/09/20 History metoprolol tartrate 12.5 mg PO BID 06/29/18 04/09/20 History tamsulosin [Flomax] 0.8 mg PO QPM 06/29/18 04/09/20 History ammonium lactate 1 applic TOPICAL BID 04/09/20 04/09/20 History atorvastatin 80 mg PO DAILY 04/09/20 04/09/20 History docusate sodium 250 mg PO HS 04/09/20 04/09/20 History famotidine 20 mg PO BID 04/09/20 04/09/20 History eramczqphcf-uhxykkfwo-vxydukqh 1 inh INHALATION DAILY 04/09/20 04/09/20 History [Trelegy Ellipta] potassium chloride 10 meq PO BID 10/29/20 10/29/20 History warfarin 2 mg PO HS 04/09/20 04/09/20 History Past Med/Surg History Medical History (Updated 04/10/20 @ 01:07 by Dov Rodriguez MD) BPH (benign prostatic hyperplasia) Carotid artery stenosis COPD (chronic obstructive pulmonary disease) Coronary artery disease Diabetes mellitus Heart attack HTN (hypertension), benign Hypomagnesemia Orthostatic hypotension Prostatitis, acute Syncope Urinary retention Surgical History H/O cardiac catheterization H/O carotid endarterectomy H/O percutaneous transluminal coronary angioplasty Stented coronary artery Family History Other Family history non-contributory Social History Smoking Status: Never smoker Second Hand Exposure: No; Do You Dip or Chew Tobacco: No; Tobacco Cessation Education Requested by Patient: No Hx Alcohol Use: No Hx Substance Use: No Preferred Language: Romanian Communication Ability: Effective Visual Impairment: No Limitations Hearing Ability: Normal Bid Analyst Required: No Beliefs That Will Affect Care: None Current Living Situation: Other Current Living Situation Comment: sci Other Information That Helps Us Care for You: No Feels Safe at Home: Yes Safety Concerns: Feels Safe At This Time Assistive Devices: Cane and Glasses Review of Systems Review of Systems: All systems reviewed & are unremarkable except as noted in HPI & below Physical Exam Constitutional: well developed and + acute distress (respiratory); + not well nourished Eyes: + anicteric sclerae; normal pupil size ENMT: Mouth: + dry oral mucous membranes Neck: trachea midline, no thyromegaly Respiratory: + cough; no respiratory distress Auscultation: + breath sounds absent (left base), + diminished lung sounds (left sided) and + crackles (coarse bilateral); no rhonchi and no wheezes Cardiovascular: Rate/Rhythm: regular rhythm and + tachycardic Heart Sounds: no murmur Vessels: no JVD (difficult to assess due to neck size) Extremities: normal capillary refill and + pedal edema (1+ to mid shins b/l); no calf tenderness Gastrointestinal (Abdomen): Inspection/Auscultation: + abdomen distended and normal bowel sounds Percussion/Palpation: abdomen soft; abdomen nontender, no guarding and abdomen not rigid Musculoskeletal: no cyanosis or clubbing, extremities motor strength 5/5 Skin: no rashes, warm and dry Neurologic: moves all extremities and awake; not confused Psychiatric: A+Ox3, euthymic affect Genitourinary: no CVA tenderness Results & Data Results & Data ([facility]) Vital Signs (Past 12 Hours) Vital Signs Temp Pulse Pulse Resp BP BP Pulse Ox 04/09/20 16:19 36.3 C L 04/09/20 15:40 116 H 30 H 95 04/09/20 15:30 110 H 29 H 125/62 93 04/09/20 15:20 110 H 25 H 94 04/09/20 15:18 108 H 26 H 111/60 94 04/09/20 15:10 106 H 26 H 94 04/09/20 15:00 107 H 26 H 94/58 L 94 04/09/20 14:50 108 H 23 95 04/09/20 14:40 105 H 25 H 96 04/09/20 14:30 106 H 24 95/55 L 94 04/09/20 14:21 94 H 26 H 96/54 L 94 04/09/20 14:20 106 H 25 H 95 04/09/20 14:18 108 H 24 96/54 L 94 04/09/20 14:11 109 H 25 H 94 04/09/20 14:10 110 H 26 H 95 04/09/20 14:00 109 H 27 H 97 04/09/20 13:50 113 H 29 H 96 04/09/20 13:48 94 04/09/20 13:40 37 C 114 H 26 H 143/73 H 95 04/09/20 13:30 117 H 31 H 96 04/09/20 13:20 122 H 31 H 95 04/09/20 13:10 124 H 30 H 94 04/09/20 13:01 125 H 25 H 96 04/09/20 12:55 126 H 35 H 143/73 H 95 Code Status & VTE Plan Code Status Full VTE Prophylaxis Plan VTE Prophylaxis will be ordered: Yes PG Care Time/CCT Total # of Minutes Spent Total Time Spent with Patient: Total time spent is greater than 50% in coordination of care (as documented) at patient's floor/unit and/or counseling patient: Coding Level of Care Code 66014 Initial In Care Lvl 3 Diagnoses Acute respiratory failure with hypoxia J96.01 Sepsis A41.9 Sepsis acute organ dysfunction status: unspecified Sepsis type: sepsis due to unspecified organism UTI (urinary tract infection) N39.0 Bacterial pneumonia J15.9 Diabetes mellitus E11.9 HTN (hypertension), benign I10 COPD (chronic obstructive pulmonary disease) J44.9 Acute congestive heart failure I50.9 Heart failure type: unspecified Bilateral pleural effusion J90 BPH (benign prostatic hyperplasia) N40.0 DVT prophylaxis Z29.9 (1) Acute congestive heart failure Heart failure type: unspecified Qualified Code(s): I50.9 - Heart failure, unspecified (2) Sepsis Sepsis acute organ dysfunction status: unspecified Sepsis type: sepsis due to unspecified organism Qualified Code(s): A41.9 - Sepsis, unspecified organism
[2020-04-09] MEDS ORDERED: POLYETHYLENE (MIRALAX) 17 GM PACK PO PRN (18:02)
[2020-04-09] MEDS ORDERED: ACETAMINOPHEN 325 MG TAB PO PRN (18:02)
[2020-04-09] MEDS ORDERED: ONDANSETRON INJ 2 MG/ML 2 ML VIAL IV PRN (18:02)
[2020-04-09] MEDS ORDERED: GLUCOSE 40% GEL 15 GM TUBE PO PRN (18:02)
[2020-04-09] MEDS ORDERED: GLUCAGON FOR INJ 1 MG VIAL SQ PRN (18:02)
[2020-04-09] MEDS ORDERED: CARBOHYDRATES FOR HYPOGLYCEMIA PO PRN (18:02)
[2020-04-09] MEDS ORDERED: GLUCOSE 10 TABS/TUBE PO PRN (18:02)
[2020-04-09] MEDS ORDERED: CEFEPIME CONSULT ACTIVE PRN (18:02)
[2020-04-09] MEDS ORDERED: DEXTROSE 50% 50 ML SYRINGE IV PRN (18:02)
[2020-04-09 18:36] LABS: NT Pro B Type Natriuretic Pept 8296 pg/ml (0-1800)
[2020-04-09] MEDS ORDERED: AZITHROMYCIN 500 MG in DEXTROSE 5% 250 ML IV ONE (19:00)
[2020-04-09] MEDS: WARFARIN SOD 2 MG TAB PO SCH (19:08)
[2020-04-09] MEDS: ALBUT/IPRATROP 3MG/0.5MG NEB 3 ML VIAL NEB SCH (19:18)
--- NOTE | 2020-04-09 20:24 | Pharmacy Report ---
Pharmacy Abx Dose Short Note - Date of Service April 09, 2020 - Assessment & Plan Laboratory Tests 04/09/20 04/09/20 13:10 13:10 WBC 25.47 H Creatinine 1.43 H Est Cr Clr Drug Dosing 54.1 Microbiology * Urine-clean catch--pending, BC x 2 pending Assessment 80 year old M receiving VANC/CEFEPIME/AZITHROMYCIN for treatment of sepsis (UTI/Pulm source?) Cultures pending. Day # 1 of antimicrobial therapy. Plan Vancomycin * Estimated pharmacokinetics: Vd~0.7 L/kg, Ke~0.049 hr-1, T 1/2~14 hrs * LOADING DOSE: VANC 2500mg (~20mg/kg) IV x 1, then * MAINTENANCE DOSE: VANC 1500mg (~13mg/kg) IV q 14 hours. * A less than traditional loading &/or maintenance dose or extended dosing interval has been selected due to likelihood of drug accumulation over time in this obese patient/patient with h/o CKD. * Goal trough level: 15 to 20 mcg/mL * V[facility] T[facility] 04[facility]11 1000 dose CEFEPIME: ordered 2g IV q12 hours for est CrCL 30-60mL/min. Pharmacy will continue to follow and will adjust dose/frequency as necessary. Thank you.
[2020-04-09 20:47] LABS: BUN Creatinine Ratio 11.9 (10-20); Calcium 8.8 mg/dl (8.5-10.1); Creatinine Clr Calc Pharmacy 46.9 ml/min; Est GFR (African American) 45.1; Est GFR (Non-African American) 38.9; Potassium 4.9 mmol/L (3.5-5.1)
[2020-04-09] MEDS ORDERED: METOPROLOL TARTRATE 25 MG TAB PO SCH (21:00)
[2020-04-09] MEDS: CEFEPIME 2,000 MG in SYRINGE 0 ML IV SCH (21:30)
[2020-04-09] MEDS: UMECLIDINIUM/VILANTEROL 62.5/25MCG 7 PUFFS/INHALER INH SCH (21:40)
[2020-04-09] MEDS: FLUTICASONE FUROATE 100MCG 14 PUFFS/INHALER INH SCH (21:41)
[2020-04-09] MEDS: INSULIN ASPART 100 UNITS/ML 3 ML PEN SC SCH (21:42)
[2020-04-09] MEDS: FINASTERIDE 5 MG TAB PO SCH (21:43)
[2020-04-09] MEDS: TAMSULOSIN HCL 0.4 MG CAP PO SCH (21:43)
[2020-04-09] MEDS: DOCUSATE SODIUM 100 MG CAP PO SCH (21:44)
[2020-04-09] MEDS: FAMOTIDINE 20 MG TAB PO SCH (21:44)
[2020-04-09] MEDS ORDERED: SODIUM CHLORIDE 0.9% 1000ML 1,000 ML IV ONE (23:45)
[2020-04-09] MEDS ORDERED: SODIUM CHLORIDE 0.9% 1000ML 500 ML IV ONE (23:46)
[2020-04-10] MEDS ORDERED: SODIUM CHLORIDE 0.9% 1000ML 500 ML IV ONE (00:29)
[2020-04-10] MEDS: SODIUM CHLORIDE 0.9% 1000ML 1,000 ML IV SCH ×2 (01:10→08:34)
[2020-04-10] MEDS ORDERED: ACETAMINOPHEN 1,000 MG/100 ML VIAL IV STA (01:39)
[2020-04-10] MEDS: ALBUMIN 25% 12.5 GM/50 ML VIAL IV SCH ×2 (01:49→02:34)
[2020-04-10] MEDS ORDERED: VANCOMYCIN HCL 1,500 MG in SODIUM CHLORIDE 0.9% 500 ML IV SCH (02:00)
--- NOTE | 2020-04-10 05:28 | Electrocardiogram Report ---
Test Reason : Blood Pressure : / mmHG Vent. Rate : 124 BPM Atrial Rate : 124 BPM P-R Int : 172 ms QRS Dur : 120 ms QT Int : 300 ms P-R-T Axes : 047 -54 088 degrees QTc Int : 431 ms Sinus tachycardia Left axis deviation Low voltage QRS Cannot rule out Anterior infarct (cited on or before 09-APR-2020) Possible Inferior infarct Abnormal ECG When compared with ECG of 09-JAN-2020 06:57, Vent. rate has increased BY 43 BPM Nonspecific T wave abnormality, improved in Inferior leads Nonspecific T wave abnormality now evident in Lateral leads Confirmed by Oseas Schrader ([id number]) on 04/10/2020 5:28:30 AM Referred By: [facility] Confirmed By:Oseas Schrader
[2020-04-10] MEDS: LEVOTHYROXINE SODIUM 75 MCG TABLET PO SCH (06:25)
[2020-04-10] MEDS: ALBUT/IPRATROP 3MG/0.5MG NEB 3 ML VIAL NEB SCH ×4 (07:08→19:13)
[2020-04-10 07:22] LABS: Basophils # (auto) 0.01 K/uL (0-0.2); Basophils % (auto) 0.1 %; Hematocrit (blood only) 36.7 % (42-52); Hemoglobin 11.2 g/dL (14.0-18.0); Immature Granulocytes # (auto) 0.04 K/uL (0.00-0.02); Immature Granulocytes % (auto) 0.2 %; Lymphocytes % (auto) 3.6 %; Mean Corpuscular Hemoglobin 24.9 pg (25-34); Mean Corpuscular Hgb Conc 30.5 g/dL (32-36); Mean Corpuscular Volume 81.6 fL (80-100); Mean Platelet Volume 11.2 fL (7.4-10.4); Monocytes # (auto) 1.12 K/uL (0.11-0.59); Monocytes % (auto) 6.8 %; Neutrophils # (auto) 14.68 K/uL (1.4-6.5); Neutrophils % (auto) 89.3 %; Platelet Count 192 K/uL (130-400); RDW Coefficient of Variation 16.9 % (11.5-14.5); RDW Standard Deviation 50.9 fL (36.4-46.3); White Blood Count 16.45 K/uL (4.8-10.8)
[2020-04-10 07:42] LABS: INR 1.8 (0.9-1.1); Prothrombin Time 18.2 Seconds (9.0-12.0)
[2020-04-10 07:54] LABS: Albumin Level 2.3 gm/dl (3.4-5.0); BUN Creatinine Ratio 16.1 (10-20); Calcium 8.7 mg/dl (8.5-10.1); Creatinine Clr Calc Pharmacy 51.7 ml/min; Est GFR (African American) 51.8; Est GFR (Non-African American) 44.7; Potassium 4.6 mmol/L (3.5-5.1)
[2020-04-10 07:57] LABS: Albumin Globulin Ratio 0.6 (0.9-2); Bilirubin,Total 0.9 mg/dl (0.2-1); Globulin 4.1 gm/dl (2.5-4.0); Total Protein 6.4 gm/dl (6.4-8.2)
[2020-04-10] MEDS: ATORVASTATIN 40 MG TAB PO SCH (08:37)
[2020-04-10] MEDS: ASPIRIN 81 MG ECTAB PO SCH (08:38)
[2020-04-10] MEDS: FAMOTIDINE 20 MG TAB PO SCH ×2 (08:38→20:33)
[2020-04-10] MEDS: guaiFENesin 600 MG TABCR PO SCH ×2 (08:38→20:33)
[2020-04-10] MEDS: CEFEPIME 2,000 MG in SYRINGE 0 ML IV SCH ×2 (08:40→20:51)
[2020-04-10] MEDS ORDERED: NON-FORMULARY MEDICATION (Fluticasone-Umeclidin-Vilanter [Trelegy Ellipta] 100-62.5-25 mcg INH SCH (09:00)
[2020-04-10] MEDS ORDERED: AZITHROMYCIN 250 MG TAB PO SCH (09:00)
--- NOTE | 2020-04-10 09:17 | Hospitalist Progress Note ---
Date of Service April 10, 2020 Assessment & Plan (1) Acute respiratory failure with hypoxia: 80 yo M with recent hx CABG in january 2020, chronic resp failure on 2L NC, multiple medical conditions, admitted for acute worsening hypoxia and sepsis. Severe Sepsis - SpO2 82 on admission, up to 90 on Bipap with 70% FiO2 currently. Titrating to SpO2 >92. Febrile to 100.8 in ambulance. Hypotensive to 76/48. - pulmonary vs. uti source? - lungs are very rhonchorous at bases, CXR with LLL consolidation of parapneumonic effusion vs pleural effusion. - UA + nitrites, +LE, 10-30 WBC - blood and urine cultures negative - received 2L fluids in boluses in ER. Empirically started on Vanc/Cefepime. Vanc d/c'd after negative MRSA swab. Acute Hypoxic Respiratory Failure with underlying Emphysema due to Community Acquired Pneumonia - increased respiratory support, currently on Bipap continuous - CXR indicative of LLL effusion (parapneumonic vs. pleural) - does not appear to have overt pulmonary edema from heart failure at this time - 500 mg Azithromycin daily x 3 days for atypical coverage CHF with hx HTN - Echo 12/2019 showing EF 40-45% - recent CABG in january, hasn't followed up with cardiology since then - continue statin, asa, metoprolol - on warfarin 2 mg daily? BPH - continue proscar, flomax DM2 - SSI COPD - continue umeclidinium/vilanterol and fluticasone to replace trelogy - guaifensin daily Hypothyroidism - levothyroxine 75 mcg daily Dvt ppx: warfarin FEN/GI: NPO ok for meds, 1/2 NS @ 125ml Dispo: PCU Code Status: DNR/DNI (2) Sepsis: (3) COPD (chronic obstructive pulmonary disease): (4) BPH (benign prostatic hyperplasia): (5) Severe sepsis: (6) H/O percutaneous transluminal coronary angioplasty: Admission and Anticipated Discharge Date Admission Date: April 09, 2020 Supervising Physician Co-Signing Physician Notes I personally examined the patient and verified all pavon points of history and exam, discussed case, and agree with decision making with Dr Rausch feeling better mostly c/o dry mouth from bipap and some back pain - but notes that while he is still sob it's far better than before vitals noted gen aaox3 pleasant nad heent nc at mmm lungs very quiet but fairly clear no accessory muscles good effort no focal neuro deficits pneumonia w hypoxic respiratory failure and sepsis POA - ipmroving. continue current care. follow closely otherwise as above Subjective 80 yo M admitted for acute hypoxic respiratory failure, hypotension with concern for sepsis. Continuing to feel poor this morning. Up to 40L, 100% Fio2 HFNC overnight. Full Code on admission. Discussed and verified with patient that he does NOT want us to perform compressions if his heart stops, and does NOT want to be intubated and support on a ventilator if his breathing requires it and wants to be "let go" comfortably. Discussed that while sepsis is serious and concerning, his denial of the Bipap severely limits his ability to get better from a recoverable disease. He was amenable to this. Review of Systems Constitutional: no chills, no body aches and no weakness Respiratory: + cough, + change in sputum and + dyspnea Cardiovascular: + dyspnea; no chest pain Gastrointestinal: no abdominal pain, no nausea and no vomiting Physical Exam Physical Exam: Constitutional: obese, in clear respiratory distress, anxious Eyes: EOMI, pupils equal and reactive bilaterally, no scleral icterus Cardiac: RRR, no murmurs, gallops or rubs. Normal S1, S2 Pulm: on HFNC, using accessory muscles for respiration, poor movement of air into lungs, ryland rhonchi and coarse breath sounds in left middle and lower lobe, rhonchi/crackles in RLL as well. Abd: soft, nontender, distended, normal bowel sounds, no rebound or guarding Extremities: poor peripheral pulses, cold fingers and toes, cap refill not visible due to nails being extremely white Neuro: no focal deficits, moving all 4 limbs, A&Ox3 Results & Data Results & Data ([facility]) Vital Signs (Past 12 Hours) Vital Signs Temp Pulse Pulse Resp BP Pulse Ox 04/10/20 08:23 83 23 93 04/10/20 07:10 76 20 92 04/10/20 06:58 36.4 C L 76 26 H 100/56 L 90 04/10/20 03:45 95 H 23 89 L 04/10/20 03:18 36.6 C 90 29 H 98/49 L 85 L 04/10/20 02:33 80/42 L 04/10/20 01:07 73/48 L 04/10/20 00:26 80 26 H 72/47 L 90 04/09/20 23:35 76/48 L 04/09/20 23:20 36.8 C 89 24 73/41 L 94 04/09/20 23:04 90 30 H 94 04/09/20 22:15 38.1 C H 04/09/20 21:30 38.7 C H 04/09/20 21:28 108 H 28 H 103/55 L 93 Laboratory Results WBC 16.45 K/uL (4.8-10.8) H 04/10/20 06:32 RBC 4.50 M/uL (4.7-6.1) L 04/10/20 06:32 Hgb 11.2 g/dL (14.0-18.0) L 04/10/20 06:32 Hct 36.7 % (42-52) L 04/10/20 06:32 MCV 81.6 fL (80-100) 04/10/20 06:32 MCH 24.9 pg (25-34) L 04/10/20 06:32 MCHC 30.5 g/dL (32-36) L 04/10/20 06:32 RDW Std Deviation 50.9 fL (36.4-46.3) H 04/10/20 06:32 RDW Coeff of Brigid 16.9 % (11.5-14.5) H 04/10/20 06:32 Plt Count 192 K/uL (130-400) 04/10/20 06:32 MPV 11.2 fL (7.4-10.4) H 04/10/20 06:32 Immature Gran % (Auto) 0.2 % 04/10/20 06:32 Neut % (Auto) 89.3 % 04/10/20 06:32 Lymph % (Auto) 3.6 % 04/10/20 06:32 [place] % (Auto) 6.8 % 04/10/20 06:32 Eos % (Auto) 0.0 % 04/10/20 06:32 Baso % (Auto) 0.1 % 04/10/20 06:32 Neut # (Auto) 14.68 K/uL (1.4-6.5) H 04/10/20 06:32 Lymph # (Auto) 0.60 K/uL (1.2-3.4) L 04/10/20 06:32 [place] # (Auto) 1.12 K/uL (0.11-0.59) H 04/10/20 06:32 Eos # (Auto) 0.00 K/uL (0-0.5) 04/10/20 06:32 Baso # (Auto) 0.01 K/uL (0-0.2) 04/10/20 06:32 Immature Gran # (Auto) 0.04 K/uL (0.00-0.02) H 04/10/20 06:32 Anisocytosis Present 04/09/20 13:10 Microcytosis Present 04/09/20 13:10 Echinocytes 1+ 04/09/20 13:10 PT 18.2 Seconds (9.0-12.0) H 04/10/20 06:32 INR 1.8 (0.9-1.1) H 04/10/20 06:32 APTT 35.2 Seconds (21.0-31.0) H 04/09/20 13:10 PTT Ratio 1.3 04/09/20 13:10 Sodium 137 mmol/L (136-145) 04/10/20 06:32 Potassium 4.6 mmol/L (3.5-5.1) 04/10/20 06:32 Chloride 105 mmol/L (98-107) 04/10/20 06:32 Carbon Dioxide 27 mmol/L (21-32) 04/10/20 06:32 Anion Gap 5.0 (3-11) 04/10/20 06:32 BUN 24 mg/dl (7-18) H 04/10/20 06:32 Creatinine 1.47 mg/dl (0.6-1.4) H 04/10/20 06:32 Est Cr Clr Drug Dosing 51.7 ml/min 04/10/20 06:32 Est GFR ( Amer) 51.8 04/10/20 06:32 Est GFR (Non-Af Amer) 44.7 04/10/20 06:32 BUN/Creatinine Ratio 16.1 (10-20) 04/10/20 06:32 Glucose 122 mg/dl (70-99) H 04/10/20 06:32 POC Glucose 135 mg/dl (70-99) H 04/10/20 07:09 Lactate 3.4 mmol/L (0.4-2.0) H* 04/09/20 20:14 Calcium 8.7 mg/dl (8.5-10.1) 04/10/20 06:32 Magnesium 1.9 mg/dl (1.8-2.4) 04/09/20 13:10 Total Bilirubin 0.9 mg/dl (0.2-1) 04/10/20 06:32 AST 16 U/L (15-37) 04/10/20 06:32 ALT 15 U/L (12-78) 04/10/20 06:32 Alkaline Phosphatase 55 U/L (45-117) 04/10/20 06:32 Troponin I 0.033 ng/ml (0-0.045) 04/10/20 00:20 NT-Pro-B Natriuret Pep 8296 pg/ml (0-1800) H 04/09/20 13:10 NT-Pro-B Natriuret Pep Cancelled 04/09/20 13:10 Total Protein 6.4 gm/dl (6.4-8.2) 04/10/20 06:32 Albumin 2.3 gm/dl (3.4-5.0) L 04/10/20 06:32 Globulin 4.1 gm/dl (2.5-4.0) H 04/10/20 06:32 Albumin/Globulin Ratio 0.6 (0.9-2) L 04/10/20 06:32 Procalcitonin 1.03 ng/ml (0-0.5) H 04/09/20 13:10 Urine Color Yellow 04/09/20 16:00 Urine Appearance Clear (Clear) 04/09/20 16:00 Urine pH 5.0 (4.5-7.5) 04/09/20 16:00 Ur Specific [place] 1.016 (1.000-1.030) 04/09/20 16:00 Urine Protein Trace (Negative) H 04/09/20 16:00 Urine Glucose (UA) Negative (Negative) 04/09/20 16:00 Urine Ketones Negative (Negative) 04/09/20 16:00 Urine Blood 1+ (Negative) H 04/09/20 16:00 Urine Nitrite Positive (Negative) A 04/09/20 16:00 Urine Bilirubin Negative (Negative) 04/09/20 16:00 Urine Urobilinogen Negative (Negative) 04/09/20 16:00 Ur Leukocyte Esterase 1+ (Negative) H 04/09/20 16:00 Urine WBC (Auto) 10-30 /hpf (0-5) H 04/09/20 16:00 Urine RBC (Auto) 0-4 /hpf (0-4) 04/09/20 16:00 U Hyaline Cast (Auto) 1-5 /lpf (0-5) 04/09/20 16:00 U Epithel Cells (Auto) 0-5 /lpf (0-5) 04/09/20 16:00 Urine Bacteria (Auto) Negative (Negative) 04/09/20 16:00 Nasal Screen MRSA (PCR) Negative (Negative) 04/09/20 22:45 Adenovirus (PCR) Not Detected (NotDetected) 04/09/20 14:15 B. pertussis DNA (PCR) Not Detected (NotDetected) 04/09/20 14:15 B.parapertussis DNA PCR Not Detected (NotDetected) 04/09/20 14:15 C. pneumoniae DNA (PCR) Not Detected (NotDetected) 04/09/20 14:15 Coronavirus OC43 (PCR) Not Detected (NotDetected) 04/09/20 14:15 Coronavirus HKU1 (PCR) Not Detected (NotDetected) 04/09/20 14:15 Coronavirus 229E (PCR) Not Detected (NotDetected) 04/09/20 14:15 COVID-19 PCR Not Detected (NotDetected) 04/09/20 14:15 Coronavirus NL63 (PCR) Not Detected (NotDetected) 04/09/20 14:15 Human Metapneumovir PCR Not Detected (NotDetected) 04/09/20 14:15 Influenza Type A (PCR) Not Detected (NotDetected) 04/09/20 14:15 Influ A Molecular Assay Negative (Negative) 04/09/20 13:30 Influenza Type B (PCR) Not Detected (NotDetected) 04/09/20 14:15 Influ B Molecular Assay Negative (Negative) 04/09/20 13:30 M. pneumoniae (PCR) Not Detected (NotDetected) 04/09/20 14:15 Parainfluenza 1 (PCR) Not Detected (NotDetected) 04/09/20 14:15 Parainfluenza 2 (PCR) Not Detected (NotDetected) 04/09/20 14:15 Parainfluenza 3 (PCR) Not Detected (NotDetected) 04/09/20 14:15 Parainfluenza 4 (PCR) Not Detected (NotDetected) 04/09/20 14:15 RSV (PCR) Not Detected (NotDetected) 04/09/20 14:15 Entero/Rhino (PCR) Not Detected (NotDetected) 04/09/20 14:15 Resident Activity Tracking Resident Involvement: Resident Care Provided Care Provided: Adult Hospital Medicine (1) Sepsis Sepsis acute organ dysfunction status: unspecified Sepsis type: sepsis due to unspecified organism Qualified Code(s): A41.9 - Sepsis, unspecified organism
[2020-04-10] MEDS: INSULIN ASPART 100 UNITS/ML 3 ML PEN SC SCH ×4 (09:24→21:24)
[2020-04-10] MEDS ORDERED: ACETAMINOPHEN 1,000 MG/100 ML VIAL IV PRN (13:36)
[2020-04-10] MEDS ORDERED: AZITHROMYCIN 250 MG in DEXTROSE 5% 250 ML IV ONE (14:00)
[2020-04-10] MEDS ORDERED: POTASSIUM ACETATE 20 MEQ in SODIUM CHLORIDE 0.45 % 1,000 ML IV SCH (15:15)
--- NOTE | 2020-04-10 15:29 | XCELERA ---
[id number]
[2020-04-10] MEDS: WARFARIN SOD 2 MG TAB PO SCH (16:36)
--- NOTE | 2020-04-10 19:16 | Billing Data ---
Date of Service April 10, 2020 Coding Level of Care Code 05622 Subseq Hosp Care Lvl 3
[2020-04-10] MEDS: UMECLIDINIUM/VILANTEROL 62.5/25MCG 7 PUFFS/INHALER INH SCH (20:32)
[2020-04-10] MEDS: DOCUSATE SODIUM 100 MG CAP PO SCH (20:32)
[2020-04-10] MEDS: FLUTICASONE FUROATE 100MCG 14 PUFFS/INHALER INH SCH (20:32)
[2020-04-10] MEDS: TAMSULOSIN HCL 0.4 MG CAP PO SCH (20:33)
[2020-04-10] MEDS: FINASTERIDE 5 MG TAB PO SCH (20:34)
[2020-04-11] MEDS: LEVOTHYROXINE SODIUM 75 MCG TABLET PO SCH (05:51)
[2020-04-11 06:09] LABS: INR 2.1 (0.9-1.1); Prothrombin Time 21.4 Seconds (9.0-12.0)
[2020-04-11] MEDS ORDERED: Nursing to Pharmacy Communication SCH (06:30)
[2020-04-11 07:08] LABS: Creatinine Clr Calc Pharmacy 81.5 ml/min; Est GFR (African American) 90.2; Est GFR (Non-African American) 77.8
[2020-04-11] MEDS: ALBUT/IPRATROP 3MG/0.5MG NEB 3 ML VIAL NEB SCH ×4 (07:18→19:21)
[2020-04-11 07:55] LABS: Basophils # (auto) 0.01 K/uL (0-0.2); Basophils % (auto) 0.1 %; Eosinophils # (auto) 0.03 K/uL (0-0.5); Eosinophils % (auto) 0.2 %; Hematocrit (blood only) 37.7 % (42-52); Hemoglobin 11.5 g/dL (14.0-18.0); Immature Granulocytes # (auto) 0.11 K/uL (0.00-0.02); Immature Granulocytes % (auto) 0.6 %; Lymphocytes # (auto) 0.52 K/uL (1.2-3.4); Lymphocytes % (auto) 2.9 %; Mean Corpuscular Hemoglobin 24.7 pg (25-34); Mean Corpuscular Hgb Conc 30.5 g/dL (32-36); Mean Corpuscular Volume 80.9 fL (80-100); Mean Platelet Volume 11.5 fL (7.4-10.4); Monocytes # (auto) 1.46 K/uL (0.11-0.59); Monocytes % (auto) 8.1 %; Neutrophils % (auto) 88.1 %; Platelet Count 210 K/uL (130-400); RDW Standard Deviation 50.7 fL (36.4-46.3); Red Blood Count 4.66 M/uL (4.7-6.1); White Blood Count 17.93 K/uL (4.8-10.8)
[2020-04-11] MEDS: FAMOTIDINE 20 MG TAB PO SCH ×2 (08:21→20:55)
[2020-04-11] MEDS: ATORVASTATIN 40 MG TAB PO SCH (08:21)
[2020-04-11] MEDS: guaiFENesin 600 MG TABCR PO SCH ×2 (08:21→20:55)
[2020-04-11] MEDS: ASPIRIN 81 MG ECTAB PO SCH (08:21)
[2020-04-11] MEDS: CEFEPIME 2,000 MG in SYRINGE 0 ML IV SCH ×2 (08:24→16:51)
[2020-04-11] MEDS ORDERED: AZITHROMYCIN 500 MG in DEXTROSE 5% 250 ML IV SCH (09:00)
--- NOTE | 2020-04-11 09:19 | Hospitalist Progress Note ---
Date of Service April 11, 2020 Assessment & Plan (1) Acute respiratory failure with hypoxia: 80 yo M with recent hx CABG in january 2020, chronic resp failure on 2L NC, multiple medical conditions, admitted for acute worsening hypoxia and sepsis. Severe Sepsis - SpO2 82 on admission, up to 90 on Bipap with 70% FiO2 currently. Titrating to SpO2 >92. Febrile to 100.8 in ambulance. Hypotensive to 76/48. - likely 2/2 pulmonary source given increased O2 requirement in the setting of previous 2L NC baseline - blood and urine cultures negative - negative MRSA swab - Continue cefepime Acute Hypoxic Respiratory Failure: - underlying Emphysema exacerbated via Pneumonia (likely community acquired) - increased respiratory support, currently on BiPAP continuous - CXR (04/11) demonstrating improved lower lobe effusion - does not appear to have overt pulmonary edema from heart failure at this time - 500 mg Azithromycin daily x 3 days for atypical coverage given baseline of Emphysema CHF with hx HTN: - Echo (04/10) showing EF 60-65% - recent CABG in January, hasn't followed up with cardiology since then - continue statin, asa, metoprolol - on warfarin 2 mg daily A. fib - EKG demonstrated atrial fibrillation - CXR demonstrating no pleural edema - trialed 5mg of Lopressor with subsequent improvement but decrease in BP - given 1L NSS bolus - trialed Cardizem x2 without control of HR/improvement in BP - started on Amiodarone bolus with drip BPH - continue proscar, flomax DM2 - SSI COPD - continue umeclidinium/vilanterol and fluticasone to replace trelogy - guaifensin daily Hypothyroidism - levothyroxine 75 mcg daily (2) Sepsis: (3) COPD (chronic obstructive pulmonary disease): (4) BPH (benign prostatic hyperplasia): (5) Severe sepsis: (6) H/O percutaneous transluminal coronary angioplasty: Admission and Anticipated Discharge Date Admission Date: April 09, 2020 Supervising Physician Co-Signing Physician Notes I personally examined the patient and verified all pavon points of history and exam, discussed case, and agree with decision making with Dr Stoner biggest complaint is dry mouth. breathing better. HR up but doesn't feel it vitals noted gen aaox3 pleasant nad heent nc at mmm lungs very quiet but fairly clear no accessory muscles good effort no focal neuro deficits, HR rapid and irreg pneumonia w hypoxic respiratory failure and sepsis POA - sepsis improving, work on rate control (BP somewhat low - had to move to amio - but on revisit late in the day improving too - HR and BP) otherwise as above Subjective Patient feels about the same this morning, without feelings of worsening shortness of breath, or worsening cough. Continuing to require BiPAP overnight to maintain saturations overnight. Update from this afternoon: called to bedside by nursing following prolonged tachycardia to the 140s with EKG demonstrating A.fib; patient does not feel his heart rate going faster, nor feels like he is having to work harder to breath. Review of Systems Review of Systems: All systems reviewed & are unremarkable except as noted in Subjective Physical Exam Constitutional: WD/WN, vitals as above Eyes: PERRL, conjunctivae normal, anicteric sclerae Respiratory: + labored breathing (using BiPAP to maintain sats) and + cough Auscultation: + crackles, + rales and + wheezes Cardiovascular: Rate/Rhythm: + tachycardic and + irregularly irregular Ves sels: normal peripheral pulses; no JVD Extremities: no pedal edema Gastrointestinal (Abdomen): normal bowel sounds, soft, nontender, no hepatosplenomegaly Skin: no rashes, warm and dry Psychiatric: Orientation: alert and oriented x 3 Results & Data Results & Data ([facility]) Vital Signs (Past 12 Hours) Vital Signs Temp Pulse Pulse Resp BP Pulse Ox 04/11/20 07:18 99 H 101 H 27 H 94 04/11/20 07:12 36.4 C L 104 H 23 118/69 94 04/11/20 03:45 100 H 27 H 92 04/11/20 03:43 36.4 C L 96 H 22 106/66 93 04/11/20 00:30 115 H 04/10/20 23:39 36.5 C 111 H 22 145/99 H 93 04/10/20 23:11 108 H 26 H 95 Laboratory Results 04/11/20 04/11/20 04/11/20 Range/Units 12:12 06:36 05:30 WBC 17.93 H (4.8-10.8) K/uL RBC 4.66 L (4.7-6.1) M/uL Hgb 11.5 L (14.0-18.0) g/dL Hct 37.7 L (42-52) % MCV 80.9 (80-100) fL MCH 24.7 L (25-34) pg MCHC 30.5 L (32-36) g/dL RDW Std Deviation 50.7 H (36.4-46.3) fL RDW Coeff of Brigid 17.0 H (11.5-14.5) % Plt Count 210 (130-400) K/uL MPV 11.5 H (7.4-10.4) fL Immature Gran % (Auto) 0.6 % Neut % (Auto) 88.1 % Lymph % (Auto) 2.9 % [place] % (Auto) 8.1 % Eos % (Auto) 0.2 % Baso % (Auto) 0.1 % Neut # (Auto) 15.80 H (1.4-6.5) K/uL Lymph # (Auto) 0.52 L (1.2-3.4) K/uL [place] # (Auto) 1.46 H (0.11-0.59) K/uL Eos # (Auto) 0.03 (0-0.5) K/uL Baso # (Auto) 0.01 (0-0.2) K/uL Immature Gran # (Auto) 0.11 H (0.00-0.02) K/uL PT (9.0-12.0) Seconds INR (0.9-1.1) Creatinine (0.6-1.4) mg/dl Est Cr Clr Drug Dosing ml/min Est GFR ( Amer) Est GFR (Non-Af Amer) POC Glucose 153 H 135 H (70-99) mg/dl 04/11/20 04/11/20 04/10/20 Range/Units 05:30 05:30 20:22 WBC (4.8-10.8) K/uL RBC (4.7-6.1) M/uL Hgb (14.0-18.0) g/dL Hct (42-52) % MCV (80-100) fL MCH (25-34) pg MCHC (32-36) g/dL RDW Std Deviation (36.4-46.3) fL RDW Coeff of Brigid (11.5-14.5) % Plt Count (130-400) K/uL MPV (7.4-10.4) fL Immature Gran % (Auto) % Neut % (Auto) % Lymph % (Auto) % [place] % (Auto) % Eos % (Auto) % Baso % (Auto) % Neut # (Auto) (1.4-6.5) K/uL Lymph # (Auto) (1.2-3.4) K/uL [place] # (Auto) (0.11-0.59) K/uL Eos # (Auto) (0-0.5) K/uL Baso # (Auto) (0-0.2) K/uL Immature Gran # (Auto) (0.00-0.02) K/uL PT 21.4 H (9.0-12.0) Seconds INR 2.1 H (0.9-1.1) Creatinine 0.93 D (0.6-1.4) mg/dl Est Cr Clr Drug Dosing 81.5 ml/min Est GFR ( Amer) 90.2 Est GFR (Non-Af Amer) 77.8 POC Glucose 91 (70-99) mg/dl 04/10/20 Range/Units 16:09 WBC (4.8-10.8) K/uL RBC (4.7-6.1) M/uL Hgb (14.0-18.0) g/dL Hct (42-52) % MCV (80-100) fL MCH (25-34) pg MCHC (32-36) g/dL RDW Std Deviation (36.4-46.3) fL RDW Coeff of Brigid (11.5-14.5) % Plt Count (130-400) K/uL MPV (7.4-10.4) fL Immature Gran % (Auto) % Neut % (Auto) % Lymph % (Auto) % [place] % (Auto) % Eos % (Auto) % Baso % (Auto) % Neut # (Auto) (1.4-6.5) K/uL Lymph # (Auto) (1.2-3.4) K/uL [place] # (Auto) (0.11-0.59) K/uL Eos # (Auto) (0-0.5) K/uL Baso # (Auto) (0-0.2) K/uL Immature Gran # (Auto) (0.00-0.02) K/uL PT (9.0-12.0) Seconds INR (0.9-1.1) Creatinine (0.6-1.4) mg/dl Est Cr Clr Drug Dosing ml/min Est GFR ( Amer) Est GFR (Non-Af Amer) POC Glucose 86 (70-99) mg/dl Medications Administered Current Inpatient Medications Albuterol (Albut/Ipratrop 3mg/0.5mg Neb 3 Ml Vial) 3 ml NEB QIDR CHET Stop: 05/09/20 18:59 Last Admin: 04/11/20 11:11 Dose: 3 ml Documented by: Aspirin (Aspirin 81 Mg Ectab) 81 mg PO QAM CHET Stop: 05/10/20 08:59 Last Admin: 04/11/20 08:21 Dose: 81 mg Documented by: Atorvastatin Calcium (Atorvastatin 40 Mg Tab) 80 mg PO DAILY CHET Stop: 05/10/20 08:59 Last Admin: 04/11/20 08:21 Dose: 80 mg Documented by: Dextrose (Dextrose 50% 50 Ml Syringe) 25 - 50 ml IV UD PRN; Protocol PRN Reason: Hypoglycemia Protocol Stop: 05/09/20 18:01 Docusate Sodium (Docusate Sodium 100 Mg Cap) 200 mg PO HS CHET Stop: 05/09/20 20:59 Last Admin: 04/10/20 20:32 Dose: 200 mg Documented by: Famotidine (Famotidine 20 Mg Tab) 20 mg PO BID CHET Stop: 05/09/20 20:59 Last Admin: 04/11/20 08:21 Dose: 20 mg Documented by: Finasteride (Finasteride 5 Mg Tab) 5 mg PO HS CHET Stop: 05/09/20 20:59 Last Admin: 04/10/20 20:34 Dose: 5 mg Documented by: Fluticasone Furoate (Fluticasone Furoate 100mcg 14 Puffs/Inhaler) 1 puffs INH PM CHET Stop: 05/09/20 20:59 Last Admin: 04/10/20 20:32 Dose: 1 puffs Documented by: Glucagon (Glucagon For Inj 1 Mg Vial) 1 mg SQ UD PRN; Protocol PRN Reason: Hypoglycemia Protocol Stop: 05/09/20 18:01 Glucose (Glucose 10 Tabs/Tube) 4 - 8 tabs PO UD PRN; Protocol PRN Reason: Hypoglycemia Protocol Stop: 05/09/20 18:01 Glucose (Glucose 40% Gel 15 Gm Tube) 15 - 30 gm PO UD PRN; Protocol PRN Reason: Hypoglycemia Protocol Stop: 05/09/20 18:01 Guaifenesin (Guaifenesin 600 Mg Tabcr) 600 mg PO Q12 CHET Stop: 05/10/20 08:59 Last Admin: 04/11/20 08:21 Dose: 600 mg Documented by: Acetaminophen (Ofirmev) 1,000 mg in 100 mls @ 400 mls/hr IV Q8H PRN PRN Reason: Fever Stop: 04/13/20 13:35 Cefepime HCl 2,000 mg/ Syringe 20 mls @ 5 mls/min IV Q8H CHET; Protocol Stop: 04/16/20 15:59 Insulin Aspart (Insulin Aspart 100 Units/Ml 3 Ml Pen) 0 units SC Q6 CHET Stop: 05/11/20 11:59 Last Admin: 04/11/20 12:44 Dose: Not Given Documented by: Levothyroxine Sodium (Levothyroxine Sodium 75 Mcg Tablet) 75 mcg PO DAILYBB [facility] Stop: 05/10/20 06:29 Last Admin: 04/11/20 05:51 Dose: 75 mcg Documented by: Metoprolol Tartrate (Metoprolol Tartrate 1 Mg/Ml Vial) 5 mg IV Q5M PRN PRN Reason: Tachycardia (HR>110) Miscellaneous (Carbohydrates For Hypoglycemia ) 15 - 30 gm PO UD PRN PRN Reason: Hypoglycemia Protocol Stop: 05/09/20 18:01 Miscellaneous Information (Cefepime Consult Active) 1 ea N/A UD PRN PRN Reason: Consult Stop: 05/09/20 18:01 Ondansetron HCl (Ondansetron Inj 2 Mg/Ml 2 Ml Vial) 4 mg IV Q6H PRN PRN Reason: Nausea Stop: 05/09/20 18:01 Polyethylene Glycol (Polyethylene (Miralax) 17 Gm Pack) 17 gm PO DAILY PRN PRN Reason: Constipation Stop: 05/09/20 18:01 Tamsulosin HCl (Tamsulosin Hcl 0.4 Mg Cap) 0.8 mg PO QPM CHET Stop: 05/09/20 20:59 Last Admin: 04/10/20 20:33 Dose: 0.8 mg Documented by: Umeclidinium/Vilanterol (Umeclidinium/Vilanterol 62.5/25mcg 7 Puffs/Inhaler) 1 puffs INH PM [facility] Stop: 05/09/20 20:59 Last Admin: 04/10/20 20:32 Dose: 1 puffs Documented by: Warfarin Sodium (Warfarin Sod 2 Mg Tab) 2 mg PO DAILY@1600 [facility] Stop: 05/09/20 15:59 Last Admin: 04/10/20 16:36 Dose: 2 mg Documented by: Resident Activity Tracking Resident Involvement: Resident Care Provided Care Provided: Adult Hospital Medicine (1) Sepsis Sepsis acute organ dysfunction status: unspecified Sepsis type: sepsis due to unspecified organism Qualified Code(s): A41.9 - Sepsis, unspecified organism
[2020-04-11] MEDS: INSULIN ASPART 100 UNITS/ML 3 ML PEN SC SCH ×2 (12:44→19:17)
[2020-04-11] MEDS ORDERED: METOPROLOL TARTRATE 1 MG/ML VIAL IV PRN ×2 (13:25→13:35)
[2020-04-11] MEDS ORDERED: METOPROLOL TARTRATE 1 MG/ML VIAL IV ONE (13:28)
[2020-04-11] MEDS ORDERED: SODIUM CHLORIDE 0.9% 1000ML 1,000 ML IV SCH (13:55)
--- NOTE | 2020-04-11 14:13 | XRay Report ---
SINGLE VIEW CHEST CLINICAL HISTORY: Dyspnea. Atrial fibrillation. FINDINGS: 2 AP, portable, upright chest radiographs are compared to study dated 04/09/2020 and correl ated with chest CT dated 01/07/2020. The examination is degraded by portable technique and patient rot ation. The patient is status post midline sternotomy. The heart is enlarged noting atherosclerotic calcification of the thoracic aorta. There is pulmonary vascular congestion with evidence of intersti tial edema. Emphysematous change is noted. There are small pleural effusions with bibasilar consolida tion. No pneumothorax is seen. The skeletal structures are osteopenic. The bony thorax is grossly int act. IMPRESSION: 1. Cardiomegaly and emphysema with evidence of congestive failure and interstitial edema. 2. Layering pleural effusions with bibasilar consolidation. This likely represents atelectasis. Corre late clinically for evidence of superimposed pneumonia. ACT 112: Negative or not required by law. Electronically signed by: Julio Mcnamara M.D. 04/11/2020 2:11 PM
[2020-04-11] MEDS ORDERED: dilTIAZem HCl 5 MG/ML 5 ML VIAL IV STA ×2 (15:59→16:41)
[2020-04-11] MEDS: WARFARIN SOD 2 MG TAB PO SCH ×2 (16:51→17:28)
[2020-04-11] MEDS ORDERED: 0.2 MICRON FILTER SET 1 EA IV ONE (17:38)
[2020-04-11] MEDS ORDERED: AMIODARONE / D5W 150 MG/100 ML BAG IV STA (17:38)
[2020-04-11] MEDS ORDERED: STAT IV Infusion **Titration per Protocol STA (17:38)
[2020-04-11] MEDS ORDERED: AMIODARONE IV BOLUS & DRIP IV STA (17:38)
[2020-04-11] MEDS ORDERED: AMIODARONE / D5W 360 MG/200 ML BAG IV ONE (17:48)
--- NOTE | 2020-04-11 17:59 | Electrocardiogram Report ---
Test Reason : Blood Pressure : / mmHG Vent. Rate : 146 BPM Atrial Rate : 170 BPM P-R Int : 000 ms QRS Dur : 124 ms QT Int : 326 ms P-R-T Axes : 000 -47 144 degrees QTc Int : 508 ms Poor data quality, interpretation may be adversely affected Atrial fibrillation with rapid ventricular response Non-specific intra-ventricular conduction delay Abnormal ECG When compared with ECG of 09-APR-2020 12:58, Atrial fibrillation has replaced Sinus rhythm HR has increased by 22 bpm Confirmed by Dimitri Avila ([id number]) on 04/11/2020 5:59:14 PM Referred By: [facility] Confirmed By:Dimitri Avila
--- NOTE | 2020-04-11 19:20 | Billing Data ---
Date of Service April 11, 2020 Coding Level of Care Code 33350 Subseq Hosp Care Lvl 3
[2020-04-11] MEDS: TAMSULOSIN HCL 0.4 MG CAP PO SCH (20:54)
[2020-04-11] MEDS: DOCUSATE SODIUM 100 MG CAP PO SCH (20:54)
[2020-04-11] MEDS: FINASTERIDE 5 MG TAB PO SCH (20:55)
[2020-04-11] MEDS: FLUTICASONE FUROATE 100MCG 14 PUFFS/INHALER INH SCH (20:56)
[2020-04-11] MEDS: UMECLIDINIUM/VILANTEROL 62.5/25MCG 7 PUFFS/INHALER INH SCH (20:56)
[2020-04-11] MEDS ORDERED: SODIUM CHLORIDE 0.9% 1000ML 500 ML IV ONE (22:28)
[2020-04-11] MEDS: AMIODARONE / D5W 360 MG/200 ML BAG IV SCH (23:57)
[2020-04-12] MEDS: INSULIN ASPART 100 UNITS/ML 3 ML PEN SC SCH ×4 (00:08→20:38)
[2020-04-12] MEDS: LEVOTHYROXINE SODIUM 75 MCG TABLET PO SCH (05:19)
[2020-04-12 05:49] LABS: Basophils # (auto) 0.02 K/uL (0-0.2); Basophils % (auto) 0.1 %; Eosinophils # (auto) 0.07 K/uL (0-0.5); Eosinophils % (auto) 0.3 %; Hematocrit (blood only) 38.2 % (42-52); Hemoglobin 11.6 g/dL (14.0-18.0); Immature Granulocytes # (auto) 0.12 K/uL (0.00-0.02); Immature Granulocytes % (auto) 0.6 %; Lymphocytes # (auto) 0.67 K/uL (1.2-3.4); Lymphocytes % (auto) 3.1 %; Mean Corpuscular Hemoglobin 24.5 pg (25-34); Mean Corpuscular Hgb Conc 30.4 g/dL (32-36); Mean Corpuscular Volume 80.8 fL (80-100); Mean Platelet Volume 11.7 fL (7.4-10.4); Monocytes # (auto) 1.92 K/uL (0.11-0.59); Neutrophils # (auto) 18.65 K/uL (1.4-6.5); Neutrophils % (auto) 86.9 %; Platelet Count 246 K/uL (130-400); RDW Standard Deviation 50.8 fL (36.4-46.3); Red Blood Count 4.73 M/uL (4.7-6.1); White Blood Count 21.45 K/uL (4.8-10.8)
[2020-04-12 05:58] LABS: INR 2.9 (0.9-1.1); Prothrombin Time 29.3 Seconds (9.0-12.0)
[2020-04-12 06:57] LABS: BUN Creatinine Ratio 22.8 (10-20); Calcium 8.6 mg/dl (8.5-10.1); Creatinine Clr Calc Pharmacy 87.1 ml/min; Est GFR (African American) 95.1; Est GFR (Non-African American) 82.1; Potassium 3.8 mmol/L (3.5-5.1)
[2020-04-12] MEDS: ALBUT/IPRATROP 3MG/0.5MG NEB 3 ML VIAL NEB SCH ×4 (07:00→19:10)
[2020-04-12] MEDS: CEFEPIME 2,000 MG in SYRINGE 0 ML IV SCH ×3 (08:12→16:25)
[2020-04-12] MEDS ORDERED: dilTIAZem HCl 5 MG/ML 5 ML VIAL IV STA (08:20)
[2020-04-12] MEDS ORDERED: STAT IV Infusion **Titration per Protocol STA (08:20)
[2020-04-12] MEDS ORDERED: KETOROLAC TROMETHAMINE 15 MG/ML VIAL IV PRN (08:38)
[2020-04-12] MEDS: dilTIAZem HCL 125 MG in DEXTROSE 5% 100 ML IV SCH (08:46)
[2020-04-12] MEDS: ASPIRIN 81 MG ECTAB PO SCH (08:53)
[2020-04-12] MEDS: FAMOTIDINE 20 MG TAB PO SCH ×2 (08:53→20:52)
[2020-04-12] MEDS: guaiFENesin 600 MG TABCR PO SCH ×2 (08:53→20:52)
[2020-04-12] MEDS: ATORVASTATIN 40 MG TAB PO SCH (08:53)
[2020-04-12] MEDS: MoRPHine SULFATE 4 MG/ML 1 ML CARP\\VIAL IV PRN (09:36)
[2020-04-12] MEDS: ACETAMINOPHEN 1,000 MG/100 ML VIAL IV SCH ×2 (09:37→17:15)
[2020-04-12] MEDS: AMIODARONE / D5W 360 MG/200 ML BAG IV SCH (11:06)
--- NOTE | 2020-04-12 11:36 | Hospitalist Progress Note ---
Date of Service April 12, 2020 Assessment & Plan (1) Acute respiratory failure with hypoxia: 80 yo M with recent hx CABG in january 2020, chronic resp failure on 2L NC, multiple medical conditions, admitted for acute worsening hypoxia and sepsis. Severe Sepsis - SpO2 82 on admission, up to 90 on Bipap with 70% FiO2 currently. Titrating to SpO2 >92. Febrile to 100.8 in ambulance. Hypotensive to 76/48. - likely 2/2 pulmonary source given increased O2 requirement in the setting of previous 2L NC baseline - blood and urine cultures negative - negative MRSA swab - Continue cefepime Acute Hypoxic Respiratory Failure: - underlying Emphysema exacerbated via Pneumonia (likely community acquired) - increased respiratory support, currently on BiPAP continuous - CXR (04/11) demonstrating improved lower lobe effusion - does not appear to have overt pulmonary edema from heart failure at this time - 500 mg Azithromycin daily x 3 days for atypical coverage given baseline of Emphysema CHF with hx HTN: - Echo (04/10) showing EF 60-65% - recent CABG in January, hasn't followed up with cardiology since then - continue statin, asa, metoprolol - on warfarin 2 mg daily at home, decreased to 1mg today A. fib - EKG demonstrated atrial fibrillation - CXR demonstrating no pleural edema - trialed 5mg of Lopressor with subsequent improvement but decrease in BP - given 1L NSS bolus - trialed Cardizem x2 without control of HR/improvement in BP - started on Cardizem drip, with reversion of tachycardia - converted to oral Amiodarone 200mg BID BPH - continue proscar, flomax DM2 - SSI COPD - continue umeclidinium/vilanterol and fluticasone to replace trelogy - guaifensin daily Hypothyroidism - levothyroxine 75 mcg daily (2) Sepsis: (3) COPD (chronic obstructive pulmonary disease): (4) BPH (benign prostatic hyperplasia): (5) Severe sepsis: (6) H/O percutaneous transluminal coronary angioplasty: Admission and Anticipated Discharge Date Admission Date: April 09, 2020 Supervising Physician Co-Signing Physician Notes I personally examined the patient and verified all pavon points of history and exam, discussed case, and agree with decision making with Dr Stoner feeling better overall. later HR improved and he was able to be weaned vitals noted gen aaox3 pleasant nad heent nc at mmm lungs very quiet but fairly clear no accessory muscles good effort no focal neuro deficits, HR rapid and irreg - later improved pneumonia w hypoxic respiratory failure and sepsis POA - sepsis improving (WBC increased but otherwise he looks better - so this is fairly nonspecific), rate control improved greatly w amio + dilt. otherwise as above Subjective Patient feels somewhat improved from yesterday overall. But remains highly frustrated by the amount of time he has to be on the BiPAP, and desires to drink more fluids than just cleaning his mouth. Continues to not feel his heart rate a t a high level overnight, nor did he feel it revert later this morning. Was successfully able to be transitioned to High flow nasal cannula without complication throughout the day. Review of Systems Review of Systems: All systems reviewed & are unremarkable except as noted in Subjective Physical Exam Constitutional: WD/WN, vitals as above Eyes: PERRL, conjunctivae normal, anicteric sclerae Respiratory: + labored breathing (using BiPAP to maintain sats) and + cough Auscultation: + crackles, + rales and + wheezes Cardiovascular: Rate/Rhythm: + tachycardic and + irregularly irregular Vessels: normal peripheral pulses; no JVD Extremities: no pedal edema Gastrointestinal (Abdomen): normal bowel sounds, soft, nontender, no hepatosplenomegaly Skin: no rashes, warm and dry Psychiatric: Orientation: alert and oriented x 3 Results & Data Results & Data ([facility]) Vital Signs (Past 12 Hours) Vital Signs Temp Pulse Pulse Pulse Resp BP Pulse Ox 04/12/20 11:09 82 24 70 L 04/12/20 07:03 36.5 C 130 H 23 126/83 93 04/12/20 07:00 136 H 136 H 32 H 93 04/12/20 02:44 36.4 C L 128 H 22 122/87 92 04/12/20 02:05 129 H 26 H 94 04/12/20 01:50 EDT 133 H Laboratory Results 04/12/20 04/12/20 04/12/20 Range/Units 11:55 05:21 05:14 WBC 21.45 H (4.8-10.8) K/uL RBC 4.73 (4.7-6.1) M/uL Hgb 11.6 L (14.0-18.0) g/dL Hct 38.2 L (42-52) % MCV 80.8 (80-100) fL MCH 24.5 L (25-34) pg MCHC 30.4 L (32-36) g/dL RDW Std Deviation 50.8 H (36.4-46.3) fL RDW Coeff of Brigid 17.0 H (11.5-14.5) % Plt Count 246 (130-400) K/uL MPV 11.7 H (7.4-10.4) fL Immature Gran % (Auto) 0.6 % Neut % (Auto) 86.9 % Lymph % (Auto) 3.1 % [place] % (Auto) 9.0 % Eos % (Auto) 0.3 % Baso % (Auto) 0.1 % Neut # (Auto) 18.65 H (1.4-6.5) K/uL Lymph # (Auto) 0.67 L (1.2-3.4) K/uL [place] # (Auto) 1.92 H (0.11-0.59) K/uL Eos # (Auto) 0.07 (0-0.5) K/uL Baso # (Auto) 0.02 (0-0.2) K/uL Immature Gran # (Auto) 0.12 H (0.00-0.02) K/uL PT (9.0-12.0) Seconds INR (0.9-1.1) Sodium (136-145) mmol/L Potassium (3.5-5.1) mmol/L Chloride (98-107) mmol/L Carbon Dioxide (21-32) mmol/L Anion Gap (3-11) BUN (7-18) mg/dl Creatinine (0.6-1.4) mg/dl Est Cr Clr Drug Dosing ml/min Est GFR ( Amer) Est GFR (Non-Af Amer) BUN/Creatinine Ratio (10-20) Glucose (70-99) mg/dl POC Glucose 163 H 175 H (70-99) mg/dl Calcium (8.5-10.1) mg/dl Procalcitonin (0-0.5) ng/ml 04/12/20 04/12/20 04/12/20 Range/Units 05:14 05:14 05:14 WBC (4.8-10.8) K/uL RBC (4.7-6.1) M/uL Hgb (14.0-18.0) g/dL Hct (42-52) % MCV (80-100) fL MCH (25-34) pg MCHC (32-36) g/dL RDW Std Deviation (36.4-46.3) fL RDW Coeff of Brigid (11.5-14.5) % Plt Count (130-400) K/uL MPV (7.4-10.4) fL Immature Gran % (Auto) % Neut % (Auto) % Lymph % (Auto) % [place] % (Auto) % Eos % (Auto) % Baso % (Auto) % Neut # (Auto) (1.4-6.5) K/uL Lymph # (Auto) (1.2-3.4) K/uL [place] # (Auto) (0.11-0.59) K/uL Eos # (Auto) (0-0.5) K/uL Baso # (Auto) (0-0.2) K/uL Immature Gran # (Auto) (0.00-0.02) K/uL PT 29.3 H (9.0-12.0) Seconds INR 2.9 H (0.9-1.1) Sodium 139 (136-145) mmol/L Potassium 3.8 D (3.5-5.1) mmol/L Chloride 107 (98-107) mmol/L Carbon Dioxide 26 (21-32) mmol/L Anion Gap 6.0 (3-11) BUN 20 H (7-18) mg/dl Creatinine 0.87 (0.6-1.4) mg/dl Est Cr Clr Drug Dosing 87.1 ml/min Est GFR ( Amer) 95.1 Est GFR (Non-Af Amer) 82.1 BUN/Creatinine Ratio 22.8 H (10-20) Glucose 153 H (70-99) mg/dl POC Glucose (70-99) mg/dl Calcium 8.6 (8.5-10.1) mg/dl Procalcitonin 0.95 H (0-0.5) ng/ml 04/12/20 04/11/20 Range/Units 00:06 19:10 WBC (4.8-10.8) K/uL RBC (4.7-6.1) M/uL Hgb (14.0-18.0) g/dL Hct (42-52) % MCV (80-100) fL MCH (25-34) pg MCHC (32-36) g/dL RDW Std Deviation (36.4-46.3) fL RDW Coeff of Brigid (11.5-14.5) % Plt Count (130-400) K/uL MPV (7.4-10.4) fL Immature Gran % (Auto) % Neut % (Auto) % Lymph % (Auto) % [place] % (Auto) % Eos % (Auto) % Baso % (Auto) % Neut # (Auto) (1.4-6.5) K/uL Lymph # (Auto) (1.2-3.4) K/uL [place] # (Auto) (0.11-0.59) K/uL Eos # (Auto) (0-0.5) K/uL Baso # (Auto) (0-0.2) K/uL Immature Gran # (Auto) (0.00-0.02) K/uL PT (9.0-12.0) Seconds INR (0.9-1.1) Sodium (136-145) mmol/L Potassium (3.5-5.1) mmol/L Chloride (98-107) mmol/L Carbon Dioxide (21-32) mmol/L Anion Gap (3-11) BUN (7-18) mg/dl Creatinine (0.6-1.4) mg/dl Est Cr Clr Drug Dosing ml/min Est GFR ( Amer) Est GFR (Non-Af Amer) BUN/Creatinine Ratio (10-20) Glucose (70-99) mg/dl POC Glucose 146 H 190 H (70-99) mg/dl Calcium (8.5-10.1) mg/dl Procalcitonin (0-0.5) ng/ml Medications Administered Current Inpatient Medications Albuterol (Albut/Ipratrop 3mg/0.5mg Neb 3 Ml Vial) 3 ml NEB QIDR CHET Stop: 05/09/20 18:59 Last Admin: 04/12/20 14:57 Dose: 3 ml Documented by: Amiodarone HCl (Amiodarone 200 Mg Tab) 200 mg PO BIDM [facility] Stop: 05/12/20 16:59 Aspirin (Aspirin 81 Mg Ectab) 81 mg PO QAM [facility] Stop: 05/10/20 08:59 Last Admin: 04/12/20 08:53 Dose: 81 mg Documented by: Atorvastatin Calcium (Atorvastatin 40 Mg Tab) 80 mg PO DAILY CHET Stop: 05/10/20 08:59 Last Admin: 04/12/20 08:53 Dose: 80 mg Documented by: Dextrose (Dextrose 50% 50 Ml Syringe) 25 - 50 ml IV UD PRN; Protocol PRN Reason: Hypoglycemia Protocol Stop: 05/09/20 18:01 Docusate Sodium (Docusate Sodium 100 Mg Cap) 200 mg PO HS [facility] Stop: 05/09/20 20:59 Last Admin: 04/11/20 20:54 Dose: Not Given Documented by: Famotidine (Famotidine 20 Mg Tab) 20 mg PO BID [facility] Stop: 05/09/20 20:59 Last Admin: 04/12/20 08:53 Dose: 20 mg Documented by: Finasteride (Finasteride 5 Mg Tab) 5 mg PO HS [facility] Stop: 05/09/20 20:59 Last Admin: 04/11/20 20:55 Dose: Not Given Documented by: Fluticasone Furoate (Fluticasone Furoate 100mcg 14 Puffs/Inhaler) 1 puffs INH PM [facility] Stop: 05/09/20 20:59 Last Admin: 04/11/20 20:56 Dose: Not Given Documented by: Glucagon (Glucagon For Inj 1 Mg Vial) 1 mg SQ UD PRN; Protocol PRN Reason: Hypoglycemia Protocol Stop: 05/09/20 18:01 Glucose (Glucose 10 Tabs/Tube) 4 - 8 tabs PO UD PRN; Protocol PRN Reason: Hypoglycemia Protocol Stop: 05/09/20 18:01 Glucose (Glucose 40% Gel 15 Gm Tube) 15 - 30 gm PO UD PRN; Protocol PRN Reason: Hypoglycemia Protocol Stop: 05/09/20 18:01 Guaifenesin (Guaifenesin 600 Mg Tabcr) 600 mg PO Q12 [facility] Stop: 05/10/20 08:59 Last Admin: 04/12/20 08:53 Dose: 600 mg Documented by: Cefepime HCl 2,000 mg/ Syringe 20 mls @ 5 mls/min IV Q8H CHET; Protocol Stop: 04/16/20 15:59 Last Admin: 04/12/20 08:12 Dose: 5 mls/min Documented by: Diltiazem HCl 125 mg/ Dextrose 125 mls @ 5 mls/hr IV .Q24H [facility]; Protocol Stop: 05/12/20 08:29 Last Titration: 04/12/20 15:00 Dose: 5 mg/hr, 5 mls/hr Documented by: Acetaminophen (Ofirmev) 1,000 mg in 100 mls @ 400 mls/hr IV Q8H [facility] Stop: 04/15/20 08:59 Last Infusion: 04/12/20 09:52 Dose: Infused Documented by: Insulin Aspart (Insulin Aspart 100 Units/Ml 3 Ml Pen) 0 units SC Q6 [facility] Stop: 05/11/20 11:59 Last Admin: 04/12/20 11:55 Dose: Not Given Documented by: Ketorolac Tromethamine (Ketorolac Tromethamine 15 Mg/Ml Vial) 15 mg IV Q6H PRN PRN Reason: Pain Stop: 04/17/20 08:37 Levothyroxine Sodium (Levothyroxine Sodium 75 Mcg Tablet) 75 mcg PO DAILYBB [facility] Stop: 05/10/20 06:29 Last Admin: 04/12/20 05:19 Dose: 75 mcg Documented by: Metoprolol Tartrate (Metoprolol Tartrate 1 Mg/Ml Vial) 5 mg IV Q5M PRN PRN Reason: Tachycardia (HR>110) Miscellaneous (Carbohydrates For Hypoglycemia ) 15 - 30 gm PO UD PRN PRN Reason: Hypoglycemia Protocol Stop: 05/09/20 18:01 Miscellaneous Information (Cefepime Consult Active) 1 ea N/A UD PRN PRN Reason: Consult Stop: 05/09/20 18:01 Morphine Sulfate (Morphine Sulfate 4 Mg/Ml 1 Ml Carp\Vial) 4 mg IV Q4H PRN PRN Reason: Severe Pain Stop: 04/26/20 08:37 Last Admin: 04/12/20 09:36 Dose: 4 mg Documented by: Ondansetron HCl (Ondansetron Inj 2 Mg/Ml 2 Ml Vial) 4 mg IV Q6H PRN PRN Reason: Nausea Stop: 05/09/20 18:01 Polyethylene Glycol (Polyethylene (Miralax) 17 Gm Pack) 17 gm PO DAILY PRN PRN Reason: Constipation Stop: 05/09/20 18:01 Tamsulosin HCl (Tamsulosin Hcl 0.4 Mg Cap) 0.8 mg PO QPM CHET Stop: 05/09/20 20:59 Last Admin: 04/11/20 20:54 Dose: Not Given Documented by: Umeclidinium/Vilanterol (Umeclidinium/Vilanterol 62.5/25mcg 7 Puffs/Inhaler) 1 puffs INH PM CHET Stop: 05/09/20 20:59 Last Admin: 04/11/20 20:56 Dose: Not Given Documented by: Warfarin Sodium (Warfarin Sod 1 Mg Tab) 1 mg PO DAILY@1600 [facility] Stop: 05/12/20 15:59 Resident Activity Tracking Resident Involvement: Resident Care Provided Care Provided: Adult Hospital Medicine (1) Sepsis Sepsis acute organ dysfunction status: unspecified Sepsis type: sepsis due to unspecified organism Qualified Code(s): A41.9 - Sepsis, unspecified organism
--- NOTE | 2020-04-12 15:27 | Billing Data ---
Date of Service April 12, 2020 Coding Level of Care Code 96486 Subseq Hosp Care Lvl 3
[2020-04-12] MEDS ORDERED: WARFARIN SOD 1 MG TAB PO SCH (16:00)
[2020-04-12] MEDS: AMIODARONE 200 MG TAB PO SCH (17:15)
[2020-04-12] MEDS: FLUTICASONE FUROATE 100MCG 14 PUFFS/INHALER INH SCH (20:49)
[2020-04-12] MEDS: UMECLIDINIUM/VILANTEROL 62.5/25MCG 7 PUFFS/INHALER INH SCH (20:49)
[2020-04-12] MEDS: DOCUSATE SODIUM 100 MG CAP PO SCH (20:50)
[2020-04-12] MEDS: TAMSULOSIN HCL 0.4 MG CAP PO SCH (20:50)
[2020-04-12] MEDS: FINASTERIDE 5 MG TAB PO SCH (20:52)
[2020-04-13] MEDS: ACETAMINOPHEN 1,000 MG/100 ML VIAL IV SCH ×2 (00:21→08:00)
[2020-04-13] MEDS: CEFEPIME 2,000 MG in SYRINGE 0 ML IV SCH ×2 (00:21→08:06)
[2020-04-13] MEDS: INSULIN ASPART 100 UNITS/ML 3 ML PEN SC SCH ×4 (05:28→19:45)
[2020-04-13] MEDS: LEVOTHYROXINE SODIUM 75 MCG TABLET PO SCH (05:28)
[2020-04-13 06:51] LABS: Hematocrit (blood only) 36.7 % (42-52); Hemoglobin 11.3 g/dL (14.0-18.0); Mean Corpuscular Hemoglobin 24.7 pg (25-34); Mean Corpuscular Hgb Conc 30.8 g/dL (32-36); Mean Corpuscular Volume 80.1 fL (80-100); Mean Platelet Volume 10.9 fL (7.4-10.4); Platelet Count 240 K/uL (130-400); RDW Coefficient of Variation 17.2 % (11.5-14.5); RDW Standard Deviation 50.6 fL (36.4-46.3); Red Blood Count 4.58 M/uL (4.7-6.1); White Blood Count 24.68 K/uL (4.8-10.8)
--- NOTE | 2020-04-13 06:59 | Hospitalist Progress Note ---
Date of Service April 13, 2020 Assessment & Plan (1) Acute respiratory failure with hypoxia: 80 yo M with recent hx CABG in january 2020, chronic resp failure on 2L NC, multiple medical conditions, admitted for acute worsening hypoxia and sepsis. Acute Hypoxic Respiratory Failure 2/2 CAP? - underlying Emphysema exacerbated via Pneumonia (likely community acquired) - increased respiratory support, flipping from Bipap to HFNC; still satting in 80's - low 90s - Pulmonology consult for continuing hypoxia, appreciate recommendations - CT chest 04/13: small BL effusions, cavitary pneumonia vs. septic emboli - CXR (04/11) demonstrating improved lower lobe effusion - received 3 days of 500 mg Azithromycin - Cefepime broadened to Zosyn to cover possibility of aspiration pneumonia/anaerobic bugs Supratherapeutic INR - 6.1 and repeated 6.8 this AM - 2/2 amiodarone and warfarin interaction - warfarin held - 2.5 mg PO vitamin K this morning - PT/INR in AM CHF with hx HTN, recent CABG in January - Echo (04/10) showing EF 60-65%. - Since he had a CABG instead of stents, does not require plavix. - continue statin, asa, metoprolol - holding warfarin as above - proBNP 8296 on admission, 5187 today Paroxysmal A. fib - per Pt history, he has been in Afib before and is on warfarin for chronic Afib anticoagulation - placed on diltiazem drip and amiodarone 200 mg - converted to sinus at 9 am 04/12 - Amiodarone 200 mg PO BID + Diltiazem ER 120 mg BPH - continue proscar, flomax DM2 - SSI COPD - continue umeclidinium/vilanterol and fluticasone to replace trelogy - guaifensin daily Hypothyroidism - levothyroxine 75 mcg daily DVT ppx: c/i with supratherapeutic INR FEN/GI: NPO with ice chips and sips Code Status: DNR/DNI Dispo: PCU (2) Sepsis: (3) COPD (chronic obstructive pulmonary disease): (4) BPH (benign prostatic hyperplasia): (5) Severe sepsis: (6) H/O percutaneous transluminal coronary angioplasty: Admission and Anticipated Discharge Date Admission Date: April 09, 2020 Supervising Physician Co-Signing Physician Notes Attending attestation Pt seen and examined in concert with Dr. Rausch. In agreement with the documented findings as noted in the resident documentation with any exceptions or additions as noted here. 80 y/o male h/o CABG, COPD with chronic respiratory failure on 2LNC, paroxysmal AF presented with sepsis 2/2 pneumonia in the setting of COPD. Stable to mildly improved from admission with SOB controlled on high flow O2 so long as the patient doesn't speak. Cough which is persistent and productive of thick, brown/bloody sputum intermittenly, improved mildly w/ guaifenesin. On examination, S1/S2 nl, borderline tachycardic. On examination, diffuse wheezing and overall decreased breath sounds throughout, highly tachypneic. Abd NT/ND BS+ve Sepsis in the setting of pneumonia w/ acute on chronic respiratory failure - stable O2 sat in the mid 80s on high flow with improvement in symptoms, with intermittent BIPAP, mostly at night. Completed course of azithromycin and has been on cefepime with marginal improvement. With persistent symptoms and minimal improvement, elevated work of breathing on high flow with poor O2 sat response, marginal response to abx --> consult pulmonology. Broaden abx coverage with pip/bernadette. Continue high flow/BIPAP as needed. Continue umeclidinium/vilatnerol and fluticasone, as well as albuterol Nebs. Monitor O2 sat. Supratherapeutic INR - hold dose today and tomorrow. No apparent bleeding appreciated. Administer 2.5 mg PO vit K. Trend INR Atrial fibrillation - rate controlled with cardizem and amiodarone 200mg BID with significant increase in INR, see supratherapeutic INR CHF (EF 60-65%) - tolerating ASA, statin therapy and metoprolol, see AF Else see resident documentation as noted. Subjective Feeling improved from admission, however now coughing up lots of sputum. continues to be short of breath while speaking. no pain. Review of Systems Constitutional: no fever and no weakness Respiratory: + cough, + change in sputum, + dyspnea and + sputum production; no pain on inspiration Cardiovascular: no chest pain, no palpitations and no edema Physical Exam Physical Exam: Constitutional: obese, in clear respiratory distress, anxious Eyes: EOMI, pupils equal and reactive bilaterally, no scleral icterus Cardiac: RRR, no murmurs, gallops or rubs. Normal S1, S2 Pulm: on HFNC, using accessory muscles for respiration, tight/end expiration wheezing with poor movement of air into lungs, dyspneic mid-word while speaking Abd: soft, nontender, distended, normal bowel sounds, no rebound or guarding Extremities: right forearm visibly edematous from infiltrated/leaking IV line, good peripheral pulses Neuro: no focal deficits, moving all 4 limbs, A&Ox3 Results & Data Results & Data ([facility]) Vital Signs (Past 12 Hours) Vital Signs Temp Pulse Pulse Resp BP Pulse Ox 04/13/20 04:37 88 22 90 04/13/20 04:20 36.7 C 87 22 127/66 90 04/13/20 03:00 88 24 90 04/12/20 23:17 36.8 C 85 20 106/57 L 88 L 04/12/20 23:11 70 20 89 L 04/12/20 19:23 37.0 C 77 20 121/61 91 04/12/20 19:13 66 22 89 L Laboratory Results WBC 24.68 K/uL (4.8-10.8) H 04/13/20 06:11 RBC 4.58 M/uL (4.7-6.1) L 04/13/20 06:11 Hgb 11.3 g/dL (14.0-18.0) L 04/13/20 06:11 Hct 36.7 % (42-52) L 04/13/20 06:11 MCV 80.1 fL (80-100) 04/13/20 06:11 MCH 24.7 pg (25-34) L 04/13/20 06:11 MCHC 30.8 g/dL (32-36) L 04/13/20 06:11 RDW Std Deviation 50.6 fL (36.4-46.3) H 04/13/20 06:11 RDW Coeff of Brigid 17.2 % (11.5-14.5) H 04/13/20 06:11 Plt Count 240 K/uL (130-400) 04/13/20 06:11 MPV 10.9 fL (7.4-10.4) H 04/13/20 06:11 Immature Gran % (Auto) 3.1 % 04/13/20 06:11 Neut % (Auto) 83.5 % 04/13/20 06:11 Lymph % (Auto) 2.9 % 04/13/20 06:11 [place] % (Auto) 9.8 % 04/13/20 06:11 Eos % (Auto) 0.6 % 04/13/20 06:11 Baso % (Auto) 0.1 % 04/13/20 06:11 Neut # (Auto) 20.60 K/uL (1.4-6.5) H 04/13/20 06:11 Lymph # (Auto) 0.71 K/uL (1.2-3.4) L 04/13/20 06:11 [place] # (Auto) 2.42 K/uL (0.11-0.59) H 04/13/20 06:11 Eos # (Auto) 0.16 K/uL (0-0.5) 04/13/20 06:11 Baso # (Auto) 0.02 K/uL (0-0.2) 04/13/20 06:11 Immature Gran # (Auto) 0.77 K/uL (0.00-0.02) H 04/13/20 06:11 Anisocytosis Present 04/09/20 13:10 Microcytosis Present 04/09/20 13:10 Echinocytes 1+ 04/13/20 06:11 PT 64.3 Seconds (9.0-12.0) H 04/13/20 08:11 INR 6.8 (0.9-1.1) H* 04/13/20 08:11 APTT 35.2 Seconds (21.0-31.0) H 04/09/20 13:10 PTT Ratio 1.3 04/09/20 13:10 Sodium 140 mmol/L (136-145) 04/13/20 06:11 Potassium 3.6 mmol/L (3.5-5.1) 04/13/20 06:11 Chloride 107 mmol/L (98-107) 04/13/20 06:11 Carbon Dioxide 29 mmol/L (21-32) 04/13/20 06:11 Anion Gap 4.0 (3-11) 04/13/20 06:11 BUN 18 mg/dl (7-18) 04/13/20 06:11 Creatinine 0.85 mg/dl (0.6-1.4) 04/13/20 06:11 Est Cr Clr Drug Dosing 89.2 ml/min 04/13/20 06:11 Est GFR ( Amer) 96.1 04/13/20 06:11 Est GFR (Non-Af Amer) 82.9 04/13/20 06:11 BUN/Creatinine Ratio 20.6 (10-20) H 04/13/20 06:11 Glucose 136 mg/dl (70-99) H 04/13/20 06:11 POC Glucose 149 mg/dl (70-99) H 04/13/20 11:44 Lactate 3.4 mmol/L (0.4-2.0) H* 04/09/20 20:14 Calcium 8.8 mg/dl (8.5-10.1) 04/13/20 06:11 Phosphorus 2.0 mg/dl (2.5-4.9) L 04/13/20 06:11 Magnesium 2.3 mg/dl (1.8-2.4) 04/13/20 06:11 Total Bilirubin 0.9 mg/dl (0.2-1) 04/10/20 06:32 AST 16 U/L (15-37) 04/10/20 06:32 ALT 15 U/L (12-78) 04/10/20 06:32 Alkaline Phosphatase 55 U/L (45-117) 04/10/20 06:32 Troponin I < 0.015 ng/ml (0-0.045) 04/10/20 11:03 NT-Pro-B Natriuret Pep 5187 pg/ml (0-1800) H 04/13/20 15:03 Total Protein 6.4 gm/dl (6.4-8.2) 04/10/20 06:32 Albumin 2.3 gm/dl (3.4-5.0) L 04/10/20 06:32 Globulin 4.1 gm/dl (2.5-4.0) H 04/10/20 06:32 Albumin/Globulin Ratio 0.6 (0.9-2) L 04/10/20 06:32 Procalcitonin 0.95 ng/ml (0-0.5) H 04/12/20 05:14 Urine Color Yellow 04/09/20 16:00 Urine Appearance Clear (Clear) 04/09/20 16:00 Urine pH 5.0 (4.5-7.5) 04/09/20 16:00 Ur Specific [place] 1.016 (1.000-1.030) 04/09/20 16:00 Urine Protein Trace (Negative) H 04/09/20 16:00 Urine Glucose (UA) Negative (Negative) 04/09/20 16:00 Urine Ketones Negative (Negative) 04/09/20 16:00 Urine Blood 1+ (Negative) H 04/09/20 16:00 Urine Nitrite Positive (Negative) A 04/09/20 16:00 Urine Bilirubin Negative (Negative) 04/09/20 16:00 Urine Urobilinogen Negative (Negative) 04/09/20 16:00 Ur Leukocyte Esterase 1+ (Negative) H 04/09/20 16:00 Urine WBC (Auto) 10-30 /hpf (0-5) H 04/09/20 16:00 Urine RBC (Auto) 0-4 /hpf (0-4) 04/09/20 16:00 U Hyaline Cast (Auto) 1-5 /lpf (0-5) 04/09/20 16:00 U Epithel Cells (Auto) 0-5 /lpf (0-5) 04/09/20 16:00 Urine Bacteria (Auto) Negative (Negative) 04/09/20 16:00 Nasal Screen MRSA (PCR) Negative (Negative) 04/09/20 22:45 Adenovirus (PCR) Not Detected (NotDetected) 04/09/20 14:15 B. pertussis DNA (PCR) Not Detected (NotDetected) 04/09/20 14:15 B.parapertussis DNA PCR Not Detected (NotDetected) 04/09/20 14:15 C. pneumoniae DNA (PCR) Not Detected (NotDetected) 04/09/20 14:15 Coronavirus OC43 (PCR) Not Detected (NotDetected) 04/09/20 14:15 Coronavirus HKU1 (PCR) Not Detected (NotDetected) 04/09/20 14:15 Coronavirus 229E (PCR) Not Detected (NotDetected) 04/09/20 14:15 COVID-19 PCR Not Detected (NotDetected) 04/09/20 14:15 Coronavirus NL63 (PCR) Not Detected (NotDetected) 04/09/20 14:15 Human Metapneumovir PCR Not Detected (NotDetected) 04/09/20 14:15 Influenza Type A (PCR) Not Detected (NotDetected) 04/09/20 14:15 Influ A Molecular Assay Negative (Negative) 04/09/20 13:30 Influenza Type B (PCR) Not Detected (NotDetected) 04/09/20 14:15 Influ B Molecular Assay Negative (Negative) 04/09/20 13:30 M. pneumoniae (PCR) Not Detected (NotDetected) 04/09/20 14:15 Parainfluenza 1 (PCR) Not Detected (NotDetected) 04/09/20 14:15 Parainfluenza 2 (PCR) Not Detected (NotDetected) 04/09/20 14:15 Parainfluenza 3 (PCR) Not Detected (NotDetected) 04/09/20 14:15 Parainfluenza 4 (PCR) Not Detected (NotDetected) 04/09/20 14:15 RSV (PCR) Not Detected (NotDetected) 04/09/20 14:15 Entero/Rhino (PCR) Not Detected (NotDetected) 04/09/20 14:15 Resident Activity Tracking Resident Involvement: Resident Care Provided Care Provided: Adult Hospital Medicine (1) Sepsis Sepsis acute organ dysfunction status: unspecified Sepsis type: sepsis due to unspecified organism Qualified Code(s): A41.9 - Sepsis, unspecified organism
[2020-04-13 07:11] LABS: Prothrombin Time 58.1 Seconds (9.0-12.0)
[2020-04-13] MEDS: ALBUT/IPRATROP 3MG/0.5MG NEB 3 ML VIAL NEB SCH ×4 (07:12→19:27)
[2020-04-13 07:19] LABS: INR 6.1 (0.9-1.1)
[2020-04-13 07:23] LABS: Basophils # (auto) 0.02 K/uL (0-0.2); Basophils % (auto) 0.1 %; Echinocytes 1+; Eosinophils # (auto) 0.16 K/uL (0-0.5); Eosinophils % (auto) 0.6 %; Immature Granulocytes # (auto) 0.77 K/uL (0.00-0.02); Immature Granulocytes % (auto) 3.1 %; Lymphocytes # (auto) 0.71 K/uL (1.2-3.4); Lymphocytes % (auto) 2.9 %; Monocytes # (auto) 2.42 K/uL (0.11-0.59); Monocytes % (auto) 9.8 %; Neutrophils % (auto) 83.5 %
[2020-04-13 07:24] LABS: BUN Creatinine Ratio 20.6 (10-20); Calcium 8.8 mg/dl (8.5-10.1); Creatinine Clr Calc Pharmacy 89.2 ml/min; Est GFR (African American) 96.1; Est GFR (Non-African American) 82.9; Magnesium 2.3 mg/dl (1.8-2.4); Potassium 3.6 mmol/L (3.5-5.1)
[2020-04-13] MEDS ORDERED: POTASSIUM PHOS 3 MMOL/1 ML INFUSION IV STA (07:29)
[2020-04-13] MEDS ORDERED: POTASSIUM PHOSPHATE 15 MMOL in SODIUM CHLORIDE 0.9% 250 ML IV ONE (07:45)
[2020-04-13] MEDS ORDERED: PHYTONADIONE 5 MG in SODIUM CHLORIDE 0.9% 50 ML IV ONE (07:45)
[2020-04-13] MEDS: AMIODARONE 200 MG TAB PO SCH ×2 (07:57→16:55)
[2020-04-13] MEDS: guaiFENesin 600 MG TABCR PO SCH ×2 (07:57→22:45)
[2020-04-13] MEDS: ATORVASTATIN 40 MG TAB PO SCH (07:57)
[2020-04-13] MEDS: ASPIRIN 81 MG ECTAB PO SCH (07:59)
[2020-04-13] MEDS: FAMOTIDINE 20 MG TAB PO SCH ×2 (07:59→22:45)
[2020-04-13] MEDS: MoRPHine SULFATE 4 MG/ML 1 ML CARP\\VIAL IV PRN (08:06)
[2020-04-13 08:52] LABS: Prothrombin Time 64.3 Seconds (9.0-12.0)
[2020-04-13 08:55] LABS: INR 6.8 (0.9-1.1)
[2020-04-13] MEDS ORDERED: cefTRIAXone SODIUM 1,000 MG in DEXTROSE 5% 50 ML IV SCH (09:30)
[2020-04-13] MEDS ORDERED: CLOPIDOGREL BISULFATE 75 MG TAB PO SCH (09:30)
[2020-04-13] MEDS ORDERED: cefTRIAXone SODIUM 2,000 MG in DEXTROSE 5% 50 ML IV SCH (10:00)
[2020-04-13] MEDS: dilTIAZem HCL 125 MG in DEXTROSE 5% 100 ML IV SCH (11:20)
[2020-04-13] MEDS: dilTIAZem ER 120 MG CAPCR PO SCH (13:43)
[2020-04-13] MEDS ORDERED: PHYTONADIONE 5 MG TAB PO STA (13:46)
[2020-04-13] MEDS ORDERED: PIPERACILL/TAZOBAC CONSULT ACTIVE PRN (13:52)
[2020-04-13] MEDS ORDERED: PIPERACILLIN/TAZOBACTAM 4.5 GM in DEXTROSE 5% 100 ML IV ONE (14:00)
[2020-04-13] MEDS ORDERED: ACETAMINOPHEN 1,000 MG/100 ML VIAL IV PRN (14:10)
--- NOTE | 2020-04-13 15:00 | Pulmonary Consultation ---
Date of Consultation April 13, 2020 Assessment & Plan (1) Acute and chronic respiratory failure with hypoxia: CT chest 04/13/2020 personally reviewed: Centrilobular emphysema appreciated, mul tifocal infiltrate appreciated bilaterally with cavitation especially in the left upper lobe, bilateral pleural effusion more on the left side, right middle lobe lateral segment infiltrate elevated left hemidiaphragm. Mediastinal lymphadenopathy likely reactive. -- Acute on chronic hypoxic respiratory failure Multifactorial Combination of multilobar pneumonia on top of diastolic CHF, BNP greater than 5000 Continue with antibiotics, follow sputum culture Bio fire -ve 04/09/2020, COVID-19 negative, influenza AMB negative. Nasal MRSA negative Diuresis to keep negative balance BiPAP nightly and as needed shortness of breath Maintain SPO2 between 88 to 92% Patient had a 2D echo done on 04/10/2020 which did not show any signs of vegetation. EF 60-65%, type I diastolic dysfunction Given that the patient is needing 100% FiO2 support. Bronchoscopy would not be beneficial and likely detrimental. Likelyhood of intracardiac shunt which might be one of the reason why he is needing such high FiO2 on top of pulmonary pneumonia and effusion. Recent CABG and being in the hospital along with cavitary lesion and elevated WBC count while on antibiotics does put patient at risk for fungal infection. Patients QTc is 503. Voriconazole which is preferred treatment cannot be used f or that reason. Will start patient on Caspofungin and f/u Gallactomannan and B-D glucan. Plan: I would recommend repeating a 2D echo to see if there is any vegetative process causing cavitary lesions which can be seen in septic emboli. Bubble study as well at the same time given the severe enlargement of the right atrium to rule out cardiac shunt. Diuretics to keep negative balance Overall prognosis is guarded. Please note the above document was generated using voice recognition software. It may contain grammatical, syntax or spelling errors.Any formal questions or concerns about the content, text or information contained within the body of this dictation should be directly addressed to the provider for clarification. (2) Multilobar lung infiltrate: (3) Pleural effusion: History of Present Illness Attending Physician: Liborio Cid MD History of Present Illness 80-year-old male past medical history of COPD and CHF, BPH, diabetes type 2, coronary artery disease status post bypass came to the hospital with fever hypoxia and hypotension. Patient is on 2 L at home. Required 4 L on admission. Currently on high flow. Pulmonary were consulted as patient was needing very high FiO2 to maintain his saturation in the high 80s. At the time of examination patient was on BiPAP 03/17 100% saturating 88%. He denies any chest pain. He was actively coughing. Denies any chest pain, no headache, no nausea or vomiting. Patient is status post azithromycin. Was on cefepime which was changed to Zosyn T-max 38.7-day before yesterday. Social history: Ex-smoker. Allergies Allergy/AdvReac Type Severity Reaction Status Date / Time No Known Allergies Allergy Unverified 04/09/20 14:50 Home Medications Home Medications Medication Instructions Recorded Confirmed Type aspirin [Aspirin Low Dose] 81 mg PO QAM 06/29/18 04/09/20 History finasteride [Proscar] 5 mg PO HS 06/29/18 04/09/20 History furosemide [Lasix] 40 mg PO DAILY 06/29/18 04/09/20 History glyburide 5 mg PO BID 06/29/18 04/09/20 History levalbuterol tartrate [Xopenex HFA] 2 inh INHALATION QID PRN 06/29/18 04/09/20 History levothyroxine 75 mcg PO QAM 06/29/18 04/09/20 History metoprolol tartrate 12.5 mg PO BID 06/29/18 04/09/20 History tamsulosin [Flomax] 0.8 mg PO QPM 06/29/18 04/09/20 History ammonium lactate 1 applic TOPICAL BID 04/09/20 04/09/20 History atorvastatin 80 mg PO DAILY 04/09/20 04/09/20 History docusate sodium 250 mg PO HS 04/09/20 04/09/20 History famotidine 20 mg PO BID 04/09/20 04/09/20 History brdelxnfwtp-owbepjebb-dakfzigq 1 inh INHALATION DAILY 04/09/20 04/09/20 History [Trelegy Ellipta] potassium chloride 10 meq PO BID 04/09/20 04/09/20 History warfarin 2 mg PO HS 04/09/20 04/09/20 History Patient History Medical History (Updated 04/13/20 @ 16:01 by Yani Garcia MD) BPH (benign prostatic hyperplasia) Carotid artery stenosis COPD (chronic obstructive pulmonary disease) Coronary artery disease Diabetes mellitus Heart attack HTN (hypertension), benign Hypomagnesemia Orthostatic hypotension Prostatitis, acute Syncope Urinary retention Surgical History H/O cardiac catheterization H/O carotid endarterectomy H/O percutaneous transluminal coronary angioplasty Stented coronary artery Family History Other Family history non-contributory Social History Smoking Status: Never smoker Second Hand Exposure: No; Do You Dip or Chew Tobacco: No; Tobacco Cessation Education Requested by Patient: No Hx Alcohol Use: No Hx Substance Use: No Preferred Language: Yakut Communication Ability: Effective Visual Impairment: No Limitations Hearing Ability: Normal Er Physician Required: No Beliefs That Will Affect Care: None Current Living Situation: Other Current Living Situation Comment: sci Other Information That Helps Us Care for You: No Feels Safe at Home: Yes Safety Concerns: Feels Safe At This Time Assistive Devices: Oxygen - Continuous Review of Systems Review of Systems: All systems reviewed & are unremarkable except as noted in HPI & below Physical Exam Physical Exam: Constitutional: No acute distress HEENT: EOMI, PERRLA Respiratory system: Decreased air entry bilaterally, positive crackles bilateral lower lobes, no wheeze, no rhonchi CVS: S1-S2 positive, distant heart sounds Abdomen: Soft, nontender, nondistended, positive bowel sounds x4, obese Extremities: +2 pulses bilaterally radialis/ dorsalis pedis, no cyanosis, no edema Neuro: Awake alert oriented x3 Psych: Normal mood and affect G/U: Positive Gtz Skin: no rashes, warm and dry Lymphatic: no cervical or axillary lymphadenopathy Results & Data Results & Data ([facility]) Vital Signs (Past 12 Hours) Vital Signs Temp Pulse Pulse Pulse Pulse Resp BP 04/13/20 11:46 36.5 C 93 H 26 H 112/50 L 04/13/20 11:10 87 26 H 04/13/20 07:30 87 30 H 04/13/20 07:12 87 87 29 H 04/13/20 07:05 37.0 C 82 28 H 126/64 04/13/20 04:37 88 22 04/13/20 04:20 36.7 C 87 22 127/66 04/13/20 03:00 88 24 Pulse Ox 04/13/20 11:46 86 L 04/13/20 11:10 87 L 04/13/20 07:30 88 L 04/13/20 07:12 89 L 04/13/20 07:05 89 L 04/13/20 04:37 90 04/13/20 04:20 90 04/13/20 03:00 90 04/13/20 06:11 04/13/20 06:11 PG Care Time/CCT Total # of Minutes Spent Total Time Spent with Patient: Total time spent is greater than 50% in coordination of care (as documented) at patient's floor/unit and/or counseling patient: Coding Level of Care Code 00453 Initial Inpt Care Lvl 3 Diagnoses Acute and chronic respiratory failure with hypoxia J96.21 Multilobar lung infiltrate R91.8 Pleural effusion J90
--- NOTE | 2020-04-13 15:59 | CT Scan Report ---
CT OF THE CHEST WITHOUT IV CONTRAST CLINICAL HISTORY: Shortness of breath. Evaluate for infiltrate. COMPARISON STUDY: Chest CT January 07, 2020. Chest radiograph April 11, 2020. CT DOSE: 1052.31 mGy.cm TECHNIQUE: Axial images of the chest were obtained without IV contrast. Images were reviewed in the axial, sagittal, and coronal planes. IV contrast was not administered for this examination. Automat ed exposure control was utilized for the study. A dose lowering technique was utilized adhering to t he principles of ALARA. FINDINGS: Interval median sternotomy and bypass grafting is noted since chest CT of January 07, 2020. M oderate cardiomegaly is noted with stents of coronary artery calcification. A small low-attenuation p ericardial effusion is noted. There has been interval development of mediastinal lymphadenopathy sinc e CT of January 07, 2020. Index subcarinal lymph node measures 2.2 cm in short axis stent. Moderate left and small right pleural effusions are noted. There is no pneumothorax. There is mild interlobular se ptal thickening. Extensive left lower lobe airspace opacity with volume loss is noted. There is also moderate right lower lobe and right upper lobe airspace opacity. Multifocal airspace opacities within the left upper lobe are noted, many of which demonstrate cavitation. There is also cavitation within a few airspace opacities within the left lower lobe. Central airways are patent. Exam is mildly comp romised by motion artifact. Visualized portions of the upper abdomen demonstrate multiple hepatic cys ts. IMPRESSION: 1. Moderate left and small right pleural effusions. Extensive associated bilateral airspace opacities , greater within the left lower lobe. This could reflect consolidation or atelectasis. Bilateral uppe r lobe air space opacities favor pneumonia with multiple sites of cavitation within the left lung jus t suggestive of cavitary pneumonia. Septic emboli could appear similar but are considered less likely . Follow-up chest CT in 2 months to ensure resolution is recommended. 2. Interval median sternotomy and bypass grafting. Small pericardial effusion. 3. Interlobular septal thickening indicative of mild interstitial pulmonary edema. 4. Mediastinal lymphadenopathy which is new since CT of January 07, 2020. This is likely reactive howeve r should be assessed on follow-up chest CT to ensure resolution. ACT 112: Negative or not required by law. Electronically signed by: Rakesh Farooq M.D. 04/13/2020 3:57 PM
[2020-04-13] MEDS: FUROSEMIDE 40 MG in SYRINGE 0 ML IV SCH (16:56)
[2020-04-13] MEDS ORDERED: CASPOFUNGIN 70 MG in SODIUM CHLORIDE 0.9% 250 ML IV ONE (19:30)
[2020-04-13] MEDS: PIPERACILLIN/TAZOBACTAM 4.5 GM in DEXTROSE 5% 100 ML IV SCH (21:25)
[2020-04-13] MEDS: UMECLIDINIUM/VILANTEROL 62.5/25MCG 7 PUFFS/INHALER INH SCH (22:44)
[2020-04-13] MEDS: FLUTICASONE FUROATE 100MCG 14 PUFFS/INHALER INH SCH (22:44)
[2020-04-13] MEDS: TAMSULOSIN HCL 0.4 MG CAP PO SCH (22:45)
[2020-04-13] MEDS: DOCUSATE SODIUM 100 MG CAP PO SCH (22:45)
[2020-04-13] MEDS: FINASTERIDE 5 MG TAB PO SCH (22:46)
[2020-04-14] MEDS: INSULIN ASPART 100 UNITS/ML 3 ML PEN SC SCH ×5 (00:45→23:55)
[2020-04-14] MEDS: PIPERACILLIN/TAZOBACTAM 4.5 GM in DEXTROSE 5% 100 ML IV SCH ×3 (04:46→20:01)
[2020-04-14] MEDS: FUROSEMIDE 40 MG in SYRINGE 0 ML IV SCH ×2 (06:21→18:34)
[2020-04-14] MEDS: LEVOTHYROXINE SODIUM 75 MCG TABLET PO SCH (06:21)
[2020-04-14 07:10] LABS: Hematocrit (blood only) 38.2 % (42-52); Hemoglobin 11.7 g/dL (14.0-18.0); Mean Corpuscular Hemoglobin 24.4 pg (25-34); Mean Corpuscular Hgb Conc 30.6 g/dL (32-36); Mean Corpuscular Volume 79.7 fL (80-100); Mean Platelet Volume 11.7 fL (7.4-10.4); Nucleated RBC # (auto) 0.14 K/uL (0-0); Nucleated RBC % (auto) 0.5 %; Platelet Count 316 K/uL (130-400); RDW Coefficient of Variation 17.5 % (11.5-14.5); RDW Standard Deviation 51.6 fL (36.4-46.3); Red Blood Count 4.79 M/uL (4.7-6.1); White Blood Count 28.65 K/uL (4.8-10.8)
[2020-04-14 07:25] LABS: INR 4.1 (0.9-1.1); Prothrombin Time 40.3 Seconds (9.0-12.0)
[2020-04-14 07:30] LABS: Basophils # (auto) 0.13 K/uL (0-0.2); Basophils % (auto) 0.5 %; Eosinophils # (auto) 0.05 K/uL (0-0.5); Eosinophils % (auto) 0.2 %; Immature Granulocytes # (auto) 2.73 K/uL (0.00-0.02); Immature Granulocytes % (auto) 9.5 %; Lymphocytes # (auto) 1.28 K/uL (1.2-3.4); Lymphocytes % (auto) 4.5 %; Monocytes # (auto) 3.22 K/uL (0.11-0.59); Monocytes % (auto) 11.2 %; Neutrophils # (auto) 21.24 K/uL (1.4-6.5); Neutrophils % (auto) 74.1 %
[2020-04-14] MEDS: ALBUT/IPRATROP 3MG/0.5MG NEB 3 ML VIAL NEB SCH ×4 (07:40→19:56)
[2020-04-14 07:50] LABS: Calcium 8.9 mg/dl (8.5-10.1); Creatinine Clr Calc Pharmacy 79.1 ml/min; Est GFR (African American) 87.9; Est GFR (Non-African American) 75.8; Potassium 3.4 mmol/L (3.5-5.1)
--- NOTE | 2020-04-14 08:19 | Hospitalist Progress Note ---
Date of Service April 14, 2020 Assessment & Plan (1) Acute respiratory failure with hypoxia: 80 yo M with recent hx CABG in january 2020, chronic resp failure on 2L NC, multiple medical conditions, admitted for acute worsening hypoxia and sepsis. Acute on Chronic Hypoxic Respiratory Failure 2/2 Cavitary Pneumonia - Cavitary PNA with mixed picture of underlying emphysema and heart failure - received 3 days of 500 mg Azithromycin - CXR (04/11) demonstrating improved lower lobe effusion - CT chest 04/13: small BL effusions, cavitary pneumonia vs. septic emboli - Pulmonology consult for continuing hypoxia, appreciate recommendations - b/d glucan, histoplasma, sputum cx, quant tb pending - Cefepime broadened to Zosyn to cover possibility of aspiration pneumonia/anaerobic bugs, started on caspofungin - continue respiratory support Supratherapeutic INR - down from 6.8 to 4.1 - /2 amiodarone and warfarin interaction - warfarin held - 2.5 mg PO vitamin K again this morning - PT/INR in AM CHF with hx HTN, recent CABG in January - Echo (04/10) showing EF 60-65%. Repeat Echo 04/14 showing likely patent foramen ovale, however poorly visualized valves, cannot rule out valvular disease. - continue statin, asa, metoprolol - holding warfarin as above - lasix 40 mg IV BID for diuresis - strict I/O Paroxysmal A. fib - Flipped back into Afib today - cardiology consulted for assistance with control - Amiodarone drip - diltiazem 120 mg ER QAM BPH - continue proscar, flomax DM2 - SSI COPD - continue umeclidinium/vilanterol and fluticasone to replace trelogy - guaifensin daily - duonebs QID Hypothyroidism - levothyroxine 75 mcg daily DVT ppx: c/i with supratherapeutic INR FEN/GI: NPO with ice chips and sips Code Status: DNR/DNI Dispo: PCU, poor prognosis (2) Sepsis: (3) COPD (chronic obstructive pulmonary disease): (4) BPH (benign prostatic hyperplasia): (5) Severe sepsis: (6) H/O percutaneous transluminal coronary angioplasty: Admission and Anticipated Discharge Date Admission Date: April 09, 2020 Supervising Physician Co-Signing Physician Notes Attending attestation Pt seen and examined in concert with Dr. Rausch. In agreement with the documented findings as noted in the resident documentation with any exceptions or additions as noted here. 80 y/o male h/o CABG, COPD with chronic respiratory failure on 2LNC, paroxysmal AF presented with sepsis 2/2 pneumonia in the setting of COPD. Pt 'self-adjusting' BIPAP and requesting transition to high flow NC/mask with O2 sat in the mid 80s and dropping < 75 with change in mask. Extensive discussion re: goals of care resulted - patient is uncomfortable and initially says he wants to 'be comfortable' and off the BIPAP but also wants continued treatment. I reiterated his tenuous position and the likelihood of decompensation with decreased respiratory support, and how changing his O2 delivery would likely interfere with further treatment and testing through pulmonology. After discussing that with him, he is agreeable to continued BIPAP for now and is aware of his difficult clinical status and endorses DNR/DNI with option for comfort if he is rapidly deteriorating. On examination, S1/S2 nl, borderline tachycardic. Persistent, diffuse wheezing and decreased breath sounds throughout, highly tachypneic which is somewhat improved with BIPAP. Abd NT/ND BS+ve Sepsis in the setting of pneumonia w/ acute on chronic respiratory failure - tolerating BIPAP begrudgingly with O2 sat in the mid 80s. Pulmonology and cardiology consultation appreciated. Completed course of azithromycin and has been on cefepime with marginal improvement. Addition of caspofungin for fungal coverage with continued pip/bernadette. Follow up histo and fungal labs. Continue umeclidinium/vilatnerol and fluticasone, as well as albuterol Nebs. Monitor O2 sat. Acute on chronic CHF w/ elevated BNP w/ acute on chronic resp. failure - cardiology consultation appreciated - diuresis with goal of negative balance to improve respiratory status. ASA, statin therapy and metoprolol. Atrial fibrillation w/ RVR - cardiology consultation appreciated - amiodarone dose increased, continue diltiazem for rate control. Consider addition of drip vs. further titration based on response. Supratherapeutic INR - total of 5mg vit K. Trend INR. May restart warfarin tomorrow based on response. Else see resident documentation as noted. Subjective Continues to feel poorly this morning. Had an extensive discussion regarding last overnights events. Per night physician at nighttime nursing, patient removed BiPAP overnight and desaturated down to the 40s. Had to be coaxed back into putting the BiPAP on in order to maintain appropriate saturations. This morning he is unsure of whether or not he wants to continue using the BiPAP. He had a lengthy discussion between office as well as with Dr. Cid that if he were to come off of the BiPAP he would quickly desaturate and become hypoxic and likely likely within a few minutes. He confirmed with him that he does not wish for any intubation to be done and thus we are limited by control with BiPAP. Review of Systems Constitutional: no fever, no chills, no body aches and no fatigue Respiratory: + cough, + dyspnea and + sputum production Cardiovascular: no chest pain, no dyspnea and no edema Gastrointestinal: no abdominal pain, no nausea, no vomiting, no constipation and no diarrhea/loose stools Physical Exam Physical Exam: Constitutional: obese, in clear respiratory distress, anxious Eyes: EOMI, pupils equal and reactive bilaterally, no scleral icterus Cardiac: RRR, no murmurs, gallops or rubs. Normal S1, S2 Pulm: on bipap, using accessory muscles for respiration, tight/end expiration wheezing with poor movement of air into lungs, dyspneic mid-word while speaking, tachypneic Abd: soft, nontender, distended, normal bowel sounds, no rebound or guarding Neuro: no focal deficits, moving all 4 limbs, A&Ox3 Results & Data Results & Data ([facility]) Vital Signs (Past 12 Hours) Vital Signs Temp Pulse Pulse Pulse Resp BP Pulse Ox 04/14/20 07:45 89 28 H 87 L 04/14/20 07:41 84 28 H 87 L 04/14/20 07:11 36.6 C 86 18 144/79 H 86 L 04/14/20 04:48 36.6 C 85 24 142/72 H 87 L 04/14/20 02:07 79 22 87 L 04/13/20 23:17 36.4 C L 94 H 24 128/61 82 L 04/13/20 22:44 93 H 31 H 84 L Laboratory Results WBC 28.65 K/uL (4.8-10.8) H 04/14/20 06:28 RBC 4.79 M/uL (4.7-6.1) 04/14/20 06:28 Hgb 11.7 g/dL (14.0-18.0) L 04/14/20 06:28 Hct 38.2 % (42-52) L 04/14/20 06:28 MCV 79.7 fL (80-100) L 04/14/20 06:28 MCH 24.4 pg (25-34) L 04/14/20 06: MCHC 30.6 g/dL (32-36) L 04/14/20 06: RDW Std Deviation 51.6 fL (36.4-46.3) H 04/14/20 06: RDW Coeff of Brigid 17.5 % (11.5-14.5) H 04/14/20: Plt Count 316 K/uL (130-400) 04/14/20 06: MPV 11.7 fL (7.4-10.4) H 04/14/20 06: Immature Gran % (Auto) 9.5 % 04/14/20 06:28 Neut % (Auto) 74.1 % 04/14/20 06:28 Lymph % (Auto) 4.5 % 04/14/20 06:28 Cole % (Auto) 11.2 % 04/14/20 06:28 Eos % (Auto) 0.2 % 04/14/20 06:28 Baso % (Auto) 0.5 % 04/14/20 06:28 Neut # (Auto) 21.24 K/uL (1.4-6.5) H 04/14/20 06:28 Lymph # (Auto) 1.28 K/uL (1.2-3.4) 04/14/20 06:28 Cole # (Auto) 3.22 K/uL (0.11-0.59) H 04/14/20 06:28 Eos # (Auto) 0.05 K/uL (0-0.5) 04/14/20 06: Baso # (Auto) 0.13 K/uL (0-0.2) 04/14/20 06:28 Immature Gran # (Auto) 2.73 K/uL (0.00-0.02) H 04/14/20 06:28 Absolute Nucleated RBC 0.14 K/uL (0-0) H 04/14/20 06:28 Nucleated RBC % (auto) 0.5 % 04/14/20 06:28 Anisocytosis Present 04/09/20 13:10 Microcytosis Present 04/09/20 13:10 Echinocytes 1+ 04/13/20 06:11 PT 40.3 Seconds (9.0-12.0) H 04/14/20 06:28 INR 4.1 (0.9-1.1) H 04/14/20 06:28 APTT 35.2 Seconds (21.0-31.0) H 04/09/20 13:10 PTT Ratio 1.3 04/09/20 13:10 Sodium 139 mmol/L (136-145) 04/14/20 06:28 Potassium 3.4 mmol/L (3.5-5.1) L 04/14/20 06:28 Chloride 103 mmol/L (98-107) 04/14/20 06:28 Carbon Dioxide 31 mmol/L (21-32) 04/14/20 06:28 Anion Gap 5.0 (3-11) 04/14/20 06:28 BUN 16 mg/dl (7-18) 04/14/20 06:28 Creatinine 0.95 mg/dl (0.6-1.4) 04/14/20 06:28 Est Cr Clr Drug Dosing 79.1 ml/min 04/14/20 06:28 Est GFR ( Amer) 87.9 04/14/20 06:28 Est GFR (Non-Af Amer) 75.8 04/14/20 06:28 BUN/Creatinine Ratio 17.0 (-20) 04/14/20 06:28 Glucose 149 mg/dl (70-99) H 04/14/20 06:28 POC Glucose 158 mg/dl (70-99) H 04/14/20 12:04 Lactate 3.4 mmol/L (0.4-2.0) H* 04/09/20 20:14 Calcium 8.9 mg/dl (8.5-10.1) 04/14/20 06:28 Phosphorus 2.0 mg/dl (2.5-4.9) L 04/13/20 06:11 Magnesium 2.3 mg/dl (1.8-2.4) 04/13/20 06:11 Total Bilirubin 0.9 mg/dl (0.2-1) 04/10/20 06:32 AST 16 U/L (15-37) 04/10/20 06:32 ALT 15 U/L (12-78) 04/10/20 06:32 Alkaline Phosphatase 55 U/L (45-117) 04/10/20 06:32 Troponin I < 0.015 ng/ml (0-0.045) 04/10/20 11:03 NT-Pro-B Natriuret Pep 5187 pg/ml (0-1800) H 04/13/20 15:03 Total Protein 6.4 gm/dl (6.4-8.2) 04/10/20 06:32 Albumin 2.3 gm/dl (3.4-5.0) L 04/10/20 06:32 Globulin 4.1 gm/dl (2.5-4.0) H 04/10/20 06:32 Albumin/Globulin Ratio 0.6 (0.9-2) L 04/10/20 06:32 Procalcitonin 0.95 ng/ml (0-0.5) H 04/12/20 05:14 Urine Color Yellow 04/09/20 16:00 Urine Appearance Clear (Clear) 04/09/20 16:00 Urine pH 5.0 (4.5-7.5) 04/09/20 16:00 Ur Specific [place] 1.016 (1.000-1.030) 04/09/20 16:00 Urine Protein Trace (Negative) H 04/09/20 16:00 Urine Glucose (UA) Negative (Negative) 04/09/20 16:00 Urine Ketones Negative (Negative) 04/09/20 16:00 Urine Blood 1+ (Negative) H 04/09/20 16:00 Urine Nitrite Positive (Negative) A 04/09/20 16:00 Urine Bilirubin Negative (Negative) 04/09/20 16:00 Urine Urobilinogen Negative (Negative) 04/09/20 16:00 Ur Leukocyte Esterase 1+ (Negative) H 04/09/20 16:00 Urine WBC (Auto) 10-30 /hpf (0-5) H 04/09/20 16:00 Urine RBC (Auto) 0-4 /hpf (0-4) 04/09/20 16:00 U Hyaline Cast (Auto) 1-5 /lpf (0-5) 04/09/20 16:00 U Epithel Cells (Auto) 0-5 /lpf (0-5) 04/09/20 16:00 Urine Bacteria (Auto) Negative (Negative) 04/09/20 16:00 Nasal Screen MRSA (PCR) Negative (Negative) 04/09/20 22:45 Adenovirus (PCR) Not Detected (NotDetected) 04/09/20 14:15 B. pertussis DNA (PCR) Not Detected (NotDetected) 04/09/20 14:15 B.parapertussis DNA PCR Not Detected (NotDetected) 04/09/20 14:15 C. pneumoniae DNA (PCR) Not Detected (NotDetected) 04/09/20 14:15 Coronavirus OC43 (PCR) Not Detected (NotDetected) 04/09/20 14:15 Coronavirus HKU1 (PCR) Not Detected (NotDetected) 04/09/20 14:15 Coronavirus 229E (PCR) Not Detected (NotDetected) 04/09/20 14:15 COVID-19 PCR Not Detected (NotDetected) 04/09/20 14:15 Coronavirus NL63 (PCR) Not Detected (NotDetected) 04/09/20 14:15 Human Metapneumovir PCR Not Detected (NotDetected) 04/09/20 14:15 Influenza Type A (PCR) Not Detected (NotDetected) 04/09/20 14:15 Influ A Molecular Assay Negative (Negative) 04/09/20 13:30 Influenza Type B (PCR) Not Detected (NotDetected) 04/09/20 14:15 Influ B Molecular Assay Negative (Negative) 04/09/20 13:30 M. pneumoniae (PCR) Not Detected (NotDetected) 04/09/20 14:15 Parainfluenza 1 (PCR) Not Detected (NotDetected) 04/09/20 14:15 Parainfluenza 2 (PCR) Not Detected (NotDetected) 04/09/20 14:15 Parainfluenza 3 (PCR) Not Detected (NotDetected) 04/09/20 14:15 Parainfluenza 4 (PCR) Not Detected (NotDetected) 04/09/20 14:15 RSV (PCR) Not Detected (NotDetected) 04/09/20 14:15 Entero/Rhino (PCR) Not Detected (NotDetected) 04/09/20 14:15 Resident Activity Tracking Resident Involvement: Resident Care Provided Care Provided: Adult Hospital Medicine (1) Sepsis Sepsis acute organ dysfunction status: unspecified Sepsis type: sepsis due to unspecified organism Qualified Code(s): A41.9 - Sepsis, unspecified organism
[2020-04-14] MEDS ORDERED: PHYTONADIONE 5 MG TAB PO STA (08:25)
[2020-04-14] MEDS: ATORVASTATIN 40 MG TAB PO SCH (08:30)
[2020-04-14] MEDS: AMIODARONE 200 MG TAB PO SCH (08:30)
[2020-04-14] MEDS: guaiFENesin 600 MG TABCR PO SCH ×2 (08:30→18:58)
[2020-04-14] MEDS: dilTIAZem ER 120 MG CAPCR PO SCH (08:30)
[2020-04-14] MEDS: ASPIRIN 81 MG ECTAB PO SCH (08:30)
[2020-04-14] MEDS: FAMOTIDINE 20 MG TAB PO SCH ×2 (08:31→18:58)
[2020-04-14] MEDS ORDERED: POTASSIUM PHOS 3 MMOL/1 ML INFUSION IV STA (11:24)
[2020-04-14] MEDS ORDERED: POTASSIUM PHOSPHATE 15 MMOL in SODIUM CHLORIDE 0.9% 250 ML IV ONE (11:30)
[2020-04-14] MEDS: CASPOFUNGIN 50 MG in SODIUM CHLORIDE 0.9% 250 ML IV SCH (11:36)
--- NOTE | 2020-04-14 12:03 | XCELERA ---
[id number]
[2020-04-14] MEDS ORDERED: PERFLUTREN LIPID MICROSPHERE (DEFINITY) IV ONE (12:52)
--- NOTE | 2020-04-14 12:52 | Electrocardiogram Report ---
Test Reason : Blood Pressure : / mmHG Vent. Rate : 137 BPM Atrial Rate : 131 BPM P-R Int : 000 ms QRS Dur : 136 ms QT Int : 382 ms P-R-T Axes : 000 -35 045 degrees QTc Int : 576 ms Poor data quality, interpretation may be adversely affected Atrial fibrillation with rapid ventricular response with premature ventricular or aberrantly conducte d complexes Left axis deviation Non-specific intra-ventricular conduction block Nonspecific T wave abnormality Abnormal ECG When compared with ECG of 11-APR-2020 13:13, T wave inversion no longer evident in Lateral leads Confirmed by Fazal Joyce ([id number] on 04/14/2020 12:51:32 PM Referred By: [facility] Confirmed By:Jaiden Joyce
--- NOTE | 2020-04-14 14:52 | Pulmonology Progress Note ---
Date of Service April 14, 2020 Assessment & Plan (1) Acute and chronic respiratory failure with hypoxia: CT chest 04/13/2020 personally reviewed: Centrilobular emphysema appreciated, multifocal infiltrate appreciated bilaterally with cavitation especially in the left upper lobe, bilateral pleural effusion more on the left side, right middle lobe lateral segment infiltrate elevated left hemidiaphragm. Mediastinal lymphadenopathy likely reactive. -- Acute on chronic hypoxic respiratory failure Multifactorial Combination of multilobar pneumonia on top of diastolic CHF, BNP greater than 5000 Continue with antibiotics, follow sputum culture Bio fire -ve 04/09/2020, COVID-19 negative, influenza AMB negative. Nasal MRSA negative Diuresis to keep negative balance BiPAP nightly and as needed shortness of breath Maintain SPO2 between 88 to 92% Patient had a 2D echo done on 04/10/2020 which did not show any signs of vegetation. EF 60-65%, type I diastolic dysfunction Repeat 2D echo: 04/14/20: Possibility of patent foraminal ovale. No clear vegetations identified. Given that the patient is needing 100% FiO2 support. Bronchoscopy would not be beneficial and likely detrimental. Likely-easley of intracardiac shunt which might be one of the reason why he is needing such high FiO2 on top of pulmonary pneumonia and effusion. Recent CABG and being in the hospital along with cavitary lesion and elevated WBC count while on antibiotics does put patient at risk for fungal infection. Patients QTc is 503. Voriconazole which is preferred treatment cannot be used for that reason. Started on Caspofungin on 04/13/20 and f/u Gallactomannan and B- D glucan. --Pulmonary hypertension Type II-type 3 mixed Plan: In/out: Urine output 3850, -2970 Repeat Limited 2D echo does show there is possibility of patent foramen ovale. Intra-atrial shunt might be playing a role in the hypoxia as well on top of the multilobar pneumonia that the patient has. Looking at the current condition and state of the patient I do not think he will be a candidate for any intervention from cardiology or pulmonary perspective. Continue with diuretics as tolerated. Continue with antibiotics and antifungal Overall prognosis is guarded. Recommend palliative/hospice route for the patient. Keep the patient comfortable and pain-free. Please note the above document was generated using voice recognition software. It may contain grammatical, syntax or spelling errors.Any formal questions or concerns about the content, text or information contained within the body of thi s dictation should be directly addressed to the provider for clarification. (2) Multilobar lung infiltrate: (3) Pleural effusion: Admission and Anticipated Discharge Date Admission Date: April 09, 2020 Subjective Patient seen and examined at bedside. He is on BiPAP % saturating 86% States that he is feeling a little better. Denies any chest pain. Asking for water. Does complain of pain in the hip. Review of Systems Review of Systems: All systems reviewed & are unremarkable except as noted in Subjective Physical Exam Physical Exam: Constitutional: In respiratory distress HEENT: EOMI, PERRLA Respiratory system: Decreased air entry bilaterally, positive crackles bilateral lower lobes, no wheeze, no rhonchi CVS: S1-S2 positive, distant heart sounds Abdomen: Soft, nontender, nondistended, positive bowel sounds x4, obese Extremities: +2 pulses bilaterally radialis/ dorsalis pedis, no cyanosis, +2 pitting edema bilateral lower extremity Neuro: Awake alert oriented x3 Psych: Normal mood and affect G/U: Positive Gtz Skin: no rashes, warm and dry Lymphatic: no cervical or axillary lymphadenopathy Results & Data Results & Data ([facility]) Vital Signs (Past 12 Hours) Vital Signs Temp Pulse Pulse Pulse Resp BP Pulse Ox 04/14/20 13:30 129 H 28 H 87 L 04/14/20 11:37 36.6 C 137 H 20 103/63 86 L 04/14/20 11:31 103/63 04/14/20 11:09 142 H 29 H 84 L 04/14/20 11:05 145 H 29 H 84 L 04/14/20 07:45 89 28 H 87 L 04/14/20 07:41 84 28 H 87 L 04/14/20 07:11 36.6 C 86 18 144/79 H 86 L 04/14/20 04:48 36.6 C 85 24 142/72 H 87 L 04/14/20 06:28 04/14/20 06:28 PG Care Time/CCT Total # of Minutes Spent Total Time Spent with Patient: Total time spent is greater than 50% in coordination of care (as documented) at patient's floor/unit and/or counseling patient: Coding Level of Care Code 03296 Subseq Hosp Care Lvl 3 Diagnoses Acute and chronic respiratory failure with hypoxia J96.21 Multilobar lung infiltrate R91.8 Pleural effusion J90
[2020-04-14] MEDS ORDERED: 0.2 MICRON FILTER SET 1 EA IV ONE (15:40)
[2020-04-14] MEDS ORDERED: STAT IV Infusion **Titration per Protocol STA (15:40)
[2020-04-14] MEDS ORDERED: AMIODARONE IV BOLUS & DRIP IV STA (15:40)
--- NOTE | 2020-04-14 15:40 | Cardiology Consultation ---
Date of Consultation April 14, 2020 Assessment & Plan (1) Atrial fibrillation: He has reported history of atrial fibrillation subsequent to his bypass surgery. It is unclear if he has been having paroxysmal atrial fibrillation back at his facility. He has been maintained on warfarin but is currently supratherapeutic. It is very likely that the physiologic stress associated with his acute illness precipitated atrial fibrillation. Will also be difficult to control his ventricular rates in the setting of hypoxemia and respiratory failure. His adrenergic drive is likely quite high and his heart rates may be refractory to standard rate control measures. Nonetheless, would seem hselbie sonable to reinstitute his amiodarone. Diltiazem can also be employed provided his blood pressure is stable. He seems to have had an adverse reaction to metoprolol administered earlier in his admission and this can be avoided for the time being. His anticoagulation can be restarted once he is back in the therapeutic zone. (2) Coronary artery disease: No detectable ischemia despite severe hypoxia and respiratory failure. This would suggest to successful revascularization in January of this year. Long-term he should be continued on low-dose aspirin and atorvastatin. Plavix is not necessary given the remote nature of his percutaneous intervention. (3) Pericardial effusion: This is of unclear chronicity. It is very possible this has been present since his bypass surgery. He does not appear to have hemodynamic compromise associated with the effusion. However, we must be cautious with respect to agg ressive diuresis as this could precipitate hemodynamic embarrassment in the setting of a pericardial effusion. Do not believe there is any urgent indication for drainage. (4) Patent foramen ovale: There was some concern about shunting given the large right atrium demonstrated on echocardiography performed 4 days ago. Bubble study was performed today which did suggest a PFO. The study was not conclusive in that regard. However, it also did not demonstrate any left to right flow. History of Present Illness Reason for Consultation: Tachycardia Requesting Physician: Shalom Attending Physician: Liborio Cid MD History of Present Illness The patient is a 80-year-old gentleman with a history of coronary disease having undergone remote percutaneous intervention to the right coronary artery in 2002 in surgical revascularization in January of this year. Initially presented to [facility] with symptoms of pneumonia in December of this year. At that time he was noted to have suffered an NSTEMI and eventually underwent coronary angiography revealing significant three-vessel coronary disease including left main stenosis. He was transferred to [place] where after recovered from his pneumonia he underwent coronary bypass surgery. It seems he has not had follow-up since that time. He presented to our facility with worsening breathing difficulty and hypoxia. He was noted to have severe COPD and multi lobar pneumonia including cavitary lesions in the lungs. Patient was started on antibiotic therapy, supplemental oxygen and other supportive measures. However, his condition continues to be quite tenuous. He continued to have significant hypoxia and tachypnea despite aggressive noninvasive measures. The patient stated on more than 1 occasion that he does not want intubation or mechanical ventilation. At the time of his presentation the patient was in atrial fibrillation with a rapid ventricular response. Rate control measures with both amiodarone infusion as well as did diltiazem were undertaken. He eventually converted to a sinus rhythm yesterday maintained sinus rhythm for approximately 24 hours. Earlier today the patient reverted back to atrial fibrillation and rapid ventricular rate. He is currently dyspnea. He denies pain. He is not generally aware of palpitations or rapid heartbeat. He does not report symptoms of abdominal discomfort but is thirsty. He has noticed some swelling in the right arm. Allergies Allergy/AdvReac Type Severity Reaction Status Date / Time No Known Allergies Allergy Unverified 04/09/20 14:50 Home Medications Home Medications Medication Instructions Recorded Confirmed Type aspirin [Aspirin Low Dose] 81 mg PO QAM 06/29/18 04/09/20 History finasteride [Proscar] 5 mg PO HS 06/29/18 04/09/20 History furosemide [Lasix] 40 mg PO DAILY 06/29/18 04/09/20 History glyburide 5 mg PO BID 06/29/18 04/09/20 History levalbuterol tartrate [Xopenex HFA] 2 inh INHALATION QID PRN 06/29/18 04/09/20 History levothyroxine 75 mcg PO QAM 06/29/18 04/09/20 History metoprolol tartrate 12.5 mg PO BID 06/29/18 04/09/20 History tamsulosin [Flomax] 0.8 mg PO QPM 06/29/18 04/09/20 History ammonium lactate 1 applic TOPICAL BID 04/09/20 04/09/20 History atorvastatin 80 mg PO DAILY 04/09/20 04/09/20 History docusate sodium 250 mg PO HS 04/09/20 04/09/20 History famotidine 20 mg PO BID 04/09/20 04/09/20 History lgtujepjkhh-qkwtoyhvz-ajsxbsup 1 inh INHALATION DAILY 04/09/20 04/09/20 History [Trelegy Ellipta] potassium chloride 10 meq PO BID 04/09/20 04/09/20 History warfarin 2 mg PO HS 04/09/20 04/09/20 History Patient History Medical History (Updated 04/14/20 @ 15:35 by Liborio Joyce MD) BPH (benign prostatic hyperplasia) Carotid artery stenosis COPD (chronic obstructive pulmonary disease) Coronary artery disease Diabetes mellitus Heart attack HTN (hypertension), benign Hypomagnesemia Orthostatic hypotension Prostatitis, acute Syncope Urinary retention Surgical History H/O cardiac catheterization H/O carotid endarterectomy H/O percutaneous transluminal coronary angioplasty Stented coronary artery Family History Other Family history non-contributory Social History Smoking Status: Never smoker Second Hand Exposure: No; Do You Dip or Chew Tobacco: No; Tobacco Cessation Education Requested by Patient: No Hx Alcohol Use: No Hx Substance Use: No Preferred Language: Turkish Communication Ability: Effective Visual Impairment: No Limitations Hearing Ability: Normal Technician Required: No Beliefs That Will Affect Care: None Current Living Situation: Other Current Living Situation Comment: sci Other Information That Helps Us Care for You: No Feels Safe at Home: Yes Safety Concerns: Feels Safe At This Time Assistive Devices: BiPap and Oxygen - Continuous Review of Systems Review of Systems: All systems reviewed & are unremarkable except as noted in Subjective Physical Exam Physical Exam: The patient is alert and oriented. He was tachypneic. He answers all questions appropriately. HEENT: Pupils are equal and reactive to light and accommodation. Extraocular movements are intact. The sclerae are anicteric. Neuro: Cranial nerves intact Neck: Patient's neck is supple. He has palpable carotid pulses bilaterally without bruits on auscultation. There is no evidence of jugular venous distention. The thyroid is not enlarged. Lungs: Coarse breath sounds in both upper lung almaraz. Reduced breath sounds in the right base. No expiratory wheezing. Increased respiratory effort Cardiac: Heart demonstrates an irregular rate and rhythm. Normal S1 and S2. No murmurs on examination. Pulses: The patient has palpable radial pulses bilaterally that are equal in intensity Extremities: There was no evidence of hypoperfusion. There is no cyanosis or clubbing. There is no edema in the lower extremities. He does have edema of the right upper extremity Skin: I did not appreciate any rashes on examination today. Results & Data ([facility]) Vital Signs (Past 12 Hours) Vital Signs Temp Pulse Pulse Pulse Resp BP Pulse Ox 04/14/20 15:05 36.4 C L 137 H 27 H 105/67 86 L 04/14/20 13:30 129 H 28 H 87 L 04/14/20 11:37 36.6 C 137 H 20 103/63 86 L 04/14/20 11:31 103/63 04/14/20 11:09 142 H 29 H 84 L 04/14/20 11:05 145 H 29 H 84 L 04/14/20 07:45 89 28 H 87 L 04/14/20 07:41 84 28 H 87 L 04/14/20 07:11 36.6 C 86 18 144/79 H 86 L 04/14/20 04:48 36.6 C 85 24 142/72 H 87 L Laboratory Results Abnormal Lab Results 04/13/20 04/13/20 04/14/20 15:03 18:23 00:41 WBC RBC Hgb Hct MCV MCH MCHC RDW Std Deviation RDW Coeff of Brigid Plt Count MPV Immature Gran % (Auto) Neut % (Auto) Lymph % (Auto) Gem % (Auto) Eos % (Auto) Baso % (Auto) Neut # (Auto) Lymph # (Auto) Gem # (Auto) Eos # (Auto) Baso # (Auto) Immature Gran # (Auto) Absolute Nucleated RBC Nucleated RBC % (auto) PT INR Sodium Potassium Chloride Carbon Dioxide Anion Gap BUN Creatinine Est Cr Clr Drug Dosing Est GFR ( Amer) Est GFR (Non-Af Amer) BUN/Creatinine Ratio Glucose POC Glucose 162 H 168 H Calcium NT-Pro-B Natriuret Pep 5187 H 04/14/20 04/14/20 04/14/20 06:12 06:28 06:28 WBC 28.65 H RBC 4.79 Hgb 11.7 L Hct 38.2 L MCV 79.7 L MCH 24.4 L MCHC 30.6 L RDW Std Deviation 51.6 H RDW Coeff of Brigid 17.5 H Plt Count 316 MPV 11.7 H Immature Gran % (Auto) 9.5 Neut % (Auto) 74.1 Lymph % (Auto) 4.5 Gem % (Auto) 11.2 Eos % (Auto) 0.2 Baso % (Auto) 0.5 Neut # (Auto) 21.24 H Lymph # (Auto) 1.28 Gem # (Auto) 3.22 H Eos # (Auto) 0.05 Baso # (Auto) 0.13 Immature Gran # (Auto) 2.73 H Absolute Nucleated RBC 0.14 H Nucleated RBC % (auto) 0.5 PT 40.3 H INR 4.1 H Sodium Potassium Chloride Carbon Dioxide Anion Gap BUN Creatinine Est Cr Clr Drug Dosing Est GFR ( Amer) Est GFR (Non-Af Amer) BUN/Creatinine Ratio Glucose POC Glucose 146 H Calcium NT-Pro-B Natriuret Pep 04/14/20 04/14/20 06:28 12:04 WBC RBC Hgb Hct MCV MCH MCHC RDW Std Deviation RDW Coeff of Brigid Plt Count MPV Immature Gran % (Auto) Neut % (Auto) Lymph % (Auto) Gem % (Auto) Eos % (Auto) Baso % (Auto) Neut # (Auto) Lymph # (Auto) Gem # (Auto) Eos # (Auto) Baso # (Auto) Immature Gran # (Auto) Absolute Nucleated RBC Nucleated RBC % (auto) PT INR Sodium 139 Potassium 3.4 L Chloride 103 Carbon Dioxide 31 Anion Gap 5.0 BUN 16 Creatinine 0.95 Est Cr Clr Drug Dosing 79.1 Est GFR ( Amer) 87.9 Est GFR (Non-Af Amer) 75.8 BUN/Creatinine Ratio 17.0 Glucose 149 H POC Glucose 158 H Calcium 8.9 NT-Pro-B Natriuret Pep Diagnostic Findings Systolic function. S mildly dilated right ventricle with reduced systolic function. Mild left atrial dilation. Severe right atrial dilation. Elevated pulmonary pressures with dilated inferior vena cava. Mild to moderate pericardial effusion. Probable PFO. Unchanged from prior examination obtained 4 days ago PG Care Time/CCT Total # of Minutes Spent Total Time Spent with Patient: Total time spent is greater than 50% in coordination of care (as documented) at patient's floor/unit and/or counseling patient: Coding Level of Care Code 03548 Initial Inpt Care Lvl 3 Diagnoses Atrial fibrillation I48.91 Coronary artery disease I25.10 Pericardial effusion I31.3 Patent foramen ovale Q21.1
[2020-04-14] MEDS ORDERED: AMIODARONE / D5W 150 MG/100 ML BAG IV STA (15:44)
[2020-04-14] MEDS ORDERED: AMIODARONE / D5W 360 MG/200 ML BAG IV ONE (15:54)
[2020-04-14] MEDS: DOCUSATE SODIUM 100 MG CAP PO SCH (18:57)
[2020-04-14] MEDS: TAMSULOSIN HCL 0.4 MG CAP PO SCH (18:58)
[2020-04-14] MEDS: FINASTERIDE 5 MG TAB PO SCH (18:59)
[2020-04-14] MEDS ORDERED: MELATONIN 3 MG TAB PO PRN (19:45)
[2020-04-14] MEDS: KETOROLAC TROMETHAMINE 15 MG/ML VIAL IV PRN (20:06)
[2020-04-14] MEDS: UMECLIDINIUM/VILANTEROL 62.5/25MCG 7 PUFFS/INHALER INH SCH (21:45)
[2020-04-14] MEDS: FLUTICASONE FUROATE 100MCG 14 PUFFS/INHALER INH SCH (21:45)
[2020-04-14] MEDS: AMIODARONE / D5W 360 MG/200 ML BAG IV SCH (22:12)
[2020-04-15] MEDS: PIPERACILLIN/TAZOBACTAM 4.5 GM in DEXTROSE 5% 100 ML IV SCH ×3 (04:49→22:32)
[2020-04-15] MEDS: FUROSEMIDE 40 MG in SYRINGE 0 ML IV SCH ×2 (06:09→17:58)
[2020-04-15] MEDS: LEVOTHYROXINE SODIUM 75 MCG TABLET PO SCH (06:09)
[2020-04-15] MEDS: INSULIN ASPART 100 UNITS/ML 3 ML PEN SC SCH ×3 (06:13→18:35)
[2020-04-15] MEDS: ALBUT/IPRATROP 3MG/0.5MG NEB 3 ML VIAL NEB SCH ×4 (07:21→20:23)
[2020-04-15 07:25] LABS: INR 2.6 (0.9-1.1); Prothrombin Time 25.8 Seconds (9.0-12.0)
[2020-04-15 07:31] LABS: Hematocrit (blood only) 39.3 % (42-52); Hemoglobin 12.3 g/dL (14.0-18.0); Mean Corpuscular Hemoglobin 24.7 pg (25-34); Mean Corpuscular Hgb Conc 31.3 g/dL (32-36); Mean Corpuscular Volume 78.9 fL (80-100); Mean Platelet Volume 10.7 fL (7.4-10.4); Nucleated RBC # (auto) 0.24 K/uL (0-0); Nucleated RBC % (auto) 0.7 %; Platelet Count 291 K/uL (130-400); RDW Coefficient of Variation 17.6 % (11.5-14.5); RDW Standard Deviation 50.4 fL (36.4-46.3); Red Blood Count 4.98 M/uL (4.7-6.1); White Blood Count 32.43 K/uL (4.8-10.8)
[2020-04-15 07:34] LABS: Calcium 8.7 mg/dl (8.5-10.1); Creatinine Clr Calc Pharmacy 70.9 ml/min; Est GFR (African American) 75.3; Est GFR (Non-African American) 64.9
[2020-04-15] MEDS: CASPOFUNGIN 50 MG in SODIUM CHLORIDE 0.9% 250 ML IV SCH (07:48)
[2020-04-15] MEDS: AMIODARONE / D5W 360 MG/200 ML BAG IV SCH ×2 (07:48→19:54)
[2020-04-15 07:53] LABS: ALC (manual) 1.36 K/uL (1.2-3.4); ANC (manual) 26.72 K/uL (1.4-6.5); Echinocytes 1+; Eosinophils # (manual) 0.81 K/uL (0-0.5); Eosinophils % (manual) 2.5 %; Lymphocytes # (manual) 1.36 K/uL (1.2-3.4); Lymphocytes % (manual) 4.2 %; Monocytes # (manual) 1.91 K/uL (0.11-0.59); Monocytes % (manual) 5.9 %; Myelocytes # (manual) 1.62 K/uL (0-0); Neutrophils # (manual) 26.72 K/uL (1.4-6.5); Neutrophils % (manual) 82.4 %
[2020-04-15] MEDS ORDERED: POTASSIUM PHOS 3 MMOL/1 ML INFUSION IV STA (07:53)
--- NOTE | 2020-04-15 09:33 | Hospitalist Progress Note ---
Date of Service April 15, 2020 Assessment & Plan (1) Acute respiratory failure with hypoxia: 80 yo M with recent hx CABG in january 2020, chronic resp failure on 2L NC, multiple medical conditions, admitted for acute worsening hypoxia and sepsis. Acute on Chronic Hypoxic Respiratory Failure 2/2 Cavitary Pneumonia and worsened by diastolic CHF - Cavitary PNA with mixed picture of underlying emphysema and heart failure - Antimicrobial coverage: - Zosyn day 3 - Caspofungin day 3 - received Cefepime 04/09 - 04/13 - received Azithromycin 04/09 - 04/11 - MRSA nares negative x2 - CT chest 04/13: Moderate left and small right pleural effusions. Extensive associated bilateral airspace opacities, greater within the left lower lobe. This could reflect consolidation or atelectasis. Bilateral upper lobe air space opacities favor pneumonia with multiple sites of cavitation within the left lung just suggestive of cavitary pneumonia. Septic emboli could appear similar but are considered less likely. Follow-up chest CT in 2 months to ensure resolution is recommended. - Appreciate pulmonology's continuing assistance with this complex patient - b/d glucan, histoplasma, HIV pending - tb gold quantiferon ordered given prisoner status and cavitary lesions, low likelihood given presentation - continue optimizing airway support with Bipap continuous, duonebs QID, inhaled steroids - appreciate Palliative Care's assistance with ongoing discussions of comfort care vs continued medical management in this critically ill patient Supratherapeutic INR - down to therapeutic range of 2.6 today -back on amiodarone drip for afib control - starting slow with warfarin dosing at 1 mg CHF with hx HTN, recent CABG in January - Echo (04/10) showing EF 60-65%. Repeat Echo 04/14 showing likely patent foramen ovale, however poorly visualized valves, cannot rule out valvular disease. - in setting of Pulm HTN and intra-atrial shunting, increased pressure on right ventricle - continue statin, asa, metoprolol - lasix 40 mg IV BID for diuresis - strict I/O - concern for fungal infection in setting of recent CABG in january Paroxysmal A. fib - rate controlled at this time on amiodarone drip given inability to tolerate PO 2/2 bipap - appreciate cardiology's continuing input in this complex patient - diltiazem 120 mg ER QAM - anticoagulated on warfarin 1 mg daily - daily PT/INR checks BPH - continue proscar, flomax DM2 - SSI - NPO COPD - continue umeclidinium/vilanterol and fluticasone to replace trelogy - guaifensin daily - duonebs QID Hypothyroidism - levothyroxine 75 mcg daily DVT ppx: warfarin FEN/GI: NPO with ice chips and sips Code Status: DNR/DNI Dispo: PCU, poor prognosis (2) Sepsis: (3) COPD (chronic obstructive pulmonary disease): (4) BPH (benign prostatic hyperplasia): (5) Severe sepsis: (6) H/O percutaneous transluminal coronary angioplasty: Admission and Anticipated Discharge Date Admission Date: April 09, 2020 Supervising Physician Co-Signing Physician Notes Attending attestation Pt seen and examined in concert with Dr. Rausch. In agreement with the documented findings as noted in the resident documentation with any exceptions or additions as noted here. 80 y/o male h/o CABG, COPD with chronic respiratory failure on 2LNC, paroxysmal AF presented with sepsis 2/2 pneumonia in the setting of COPD. Pt continues to intermittently remove BIPAP with accompanying desaturation, but is still engaged with care. Unable to tolerate sips, but does okay with single ice chip and mouth swabs administered by nursing. Repeat discussion of goals of care - still interested in continued therapy and feels stable from yesterday. Would still be candidate for hospice with continued worsening as is at maximal therapy presently. On examination, S1/S2 nl, RRR. Persistent, diffuse wheezing and decreased breath sounds throughout mildly improved from previous examination, tachypneic on BIPAP. Abd NT/ND BS+ve Sepsis in the setting of pneumonia w/ acute on chronic respiratory failure - more adherent to BIPAP, but still looking to remove intermittently. Pulmonology and cardiology consultation appreciated. Currently tolerating Zosyn and Caspofungin. MRSA nares negative, so no need for vancomycin. TB testing pending, but low likelihood as well. HIV testing sent. Pending sendout for fungal studies as noted. Monitor closely for changes. Palliative care consultation is aware of the case and working with the team to guide care. Acute on chronic CHF w/ elevated BNP w/ acute on chronic resp. failure - cardiology consultation appreciated - good response to diuresis without significant creatinine change. Continue and monitor I/O and Cr. ASA, statin therapy and metoprolol. Atrial fibrillation w/ RVR - cardiology consultation appreciated - amiodarone drip with return to sinus rhythm, continue diltiazem for rate control. Supratherapeutic INR - total of 5mg vit K. Returned to nl range. Restart at 1mg coumadin and monitor INR. Logistically, able to be placed on Xa in shelter system with medical necessity. Else see resident documentation as noted. Subjective Discussed last night and repeatedly today that taking off bipap even for a few minutes would mean imminent as his O2 saturation is in the 80's with the bipap on. Feels worse this morning, whole body feels weak and achy. Worsening difficulty breathing, no chest pain. Review of Systems Constitutional: + body aches and + weakness Respiratory: + cough, + dyspnea and + sputum production; no pain on inspiration Physical Exam Physical Exam: Const: obese, uncomfortable, working hard to breathe Card: RRR, no mrg Pulm: accessory muscle use with bipap on, poor movement of air throughout lungs, no wheezes or crackles, generally difficult to auscultate ext: peripheral edema improved Results & Data Results & Data ([facility]) Vital Signs (Past 12 Hours) Vital Signs Temp Pulse Pulse Resp BP Pulse Ox 04/15/20 07:22 87 87 28 H 86 L 04/15/20 06:58 36.4 C L 87 20 113/71 86 L 04/15/20 04:12 36.4 C L 88 24 147/79 H 85 L 04/15/20 03:40 90 31 H 87 L 04/14/20 23:27 36.6 C 84 19 140/78 83 L 04/14/20 22:52 80 27 H 88 L Laboratory Results WBC 32.43 K/uL (4.8-10.8) H* 04/15/20 07:01 RBC 4.98 M/uL (4.7-6.1) 04/15/20 07:01 Hgb 12.3 g/dL (14.0-18.0) L 04/15/20 07:01 Hct 39.3 % (42-52) L 04/15/20 07:01 MCV 78.9 fL (80-100) L 04/15/20 07:01 MCH 24.7 pg (25-34) L 04/15/20 07:01 MCHC 31.3 g/dL (32-36) L 04/15/20 07:01 RDW Std Deviation 50.4 fL (36.4-46.3) H 04/15/20 07:01 RDW Coeff of Brigid 17.6 % (11.5-14.5) H 04/15/20 07:01 Plt Count 291 K/uL (130-400) 04/15/20 07:01 MPV 10.7 fL (7.4-10.4) H 04/15/20 07:01 Immature Gran % (Auto) Cancelled 04/15/20 06:00 Neut % (Auto) Cancelled 04/15/20 06:00 Lymph % (Auto) Cancelled 04/15/20 06:00 [place] % (Auto) Cancelled 04/15/20 06:00 Eos % (Auto) Cancelled 04/15/20 06:00 Baso % (Auto) Cancelled 04/15/20 06:00 Neut # (Auto) Cancelled 04/15/20 06:00 Lymph # (Auto) Cancelled 04/15/20 06:00 [place] # (Auto) Cancelled 04/15/20 06:00 Eos # (Auto) Cancelled 04/15/20 06:00 Baso # (Auto) Cancelled 04/15/20 06:00 Immature Gran # (Auto) Cancelled 04/15/20 06:00 Absolute Nucleated RBC 0.24 K/uL (0-0) H 04/15/20 07:01 Nucleated RBC % (auto) 0.7 % 04/15/20 07:01 Neutrophils % (Manual) 82.4 % 04/15/20 07:01 Band Neutrophils % Cancelled 04/15/20 06:00 Lymphocytes % (Manual) 4.2 % 04/15/20 07:01 Prolymphocyte % Cancelled 04/15/20 06:00 Reactive Lymphs % (Man) Cancelled 04/15/20 06:00 Monocytes % (Manual) 5.9 % 04/15/20 07:01 Eosinophils % (Manual) 2.5 % 04/15/20 07:01 Basophils % (Manual) Cancelled 04/15/20 06:00 Metamyelocytes % (Man) Cancelled 04/15/20 06:00 Myelocytes % (Man) 5.0 % 04/15/20 07:01 Promyelocytes % (Man) Cancelled 04/15/20 06:00 Blast Cells % (Manual) Cancelled 04/15/20 06:00 Plasma Cell % (Manual) Cancelled 04/15/20 06:00 Other Cells % Cancelled 04/15/20 06:00 Nucleated RBC % Cancelled 04/15/20 06:00 Neutrophils # (Manual) 26.72 K/uL (1.4-6.5) H 04/15/20 07:01 Band Neutrophils # Cancelled 04/15/20 06:00 Total Absolute Neuts 26.72 K/uL (1.4-6.5) H 04/15/20 07:01 Lymphocytes # (Manual) 1.36 K/uL (1.2-3.4) 04/15/20 07:01 Prolymphocyte # Cancelled 04/15/20 06:00 Reactive Lymphs # Cancelled 04/15/20 06:00 Total Abs Lymphocytes 1.36 K/uL (1.2-3.4) 04/15/20 07:01 Monocytes # (Manual) 1.91 K/uL (0.11-0.59) H 04/15/20 07:01 Eosinophils # (Manual) 0.81 K/uL (0-0.5) H 04/15/20 07:01 Basophils # (Manual) Cancelled 04/15/20 06:00 Metamyelocytes # (Man) Cancelled 04/15/20 06:00 Myelocytes # (Manual) 1.62 K/uL (0-0) H 04/15/20 07:01 Promyelocytes # (Man) Cancelled 04/15/20 06:00 Blast Cells # (Man) Cancelled 04/15/20 06:00 Plasma Cell # (Manual) Cancelled 04/15/20 06:00 Other Cells # Cancelled 04/15/20 06:00 Nucleated RBCs # (Man) Cancelled 04/15/20 06:00 Hypersegmented Neuts Cancelled 04/15/20 06:00 Hyposegmented Neuts Cancelled 04/15/20 06:00 Hypogranular Neuts Cancelled 04/15/20 06:00 Large Granular Lymphs Cancelled 04/15/20 06:00 # Lrg Granular Lymphs Cancelled 04/15/20 06:00 Hairy Cells Cancelled 04/15/20 06:00 Smudge Cells Cancelled 04/15/20 06:00 Toxic Granulation Cancelled 04/15/20 06:00 Toxic Vacuolation Cancelled 04/15/20 06:00 Dohle Bodies Cancelled 04/15/20 06:00 Sherie Rods Cancelled 04/15/20 06:00 Platelet Estimate Cancelled 04/15/20 06:00 Hypogranular Platelets Cancelled 04/15/20 06:00 Clumped Platelets Cancelled 04/15/20 06:00 Giant Platelets Cancelled 04/15/20 06:00 Platelet Satelliting Cancelled 04/15/20 06:00 RBC Morphology Cancelled 04/15/20 06:00 Polychromasia Cancelled 04/15/20 06:00 Hypochromasia Cancelled 04/15/20 06:00 Poikilocytosis Cancelled 04/15/20 06:00 Basophilic Stippling Cancelled 04/15/20 06:00 Anisocytosis Cancelled 04/15/20 06:00 Microcytosis Cancelled 04/15/20 06:00 Macrocytosis Cancelled 04/15/20 06:00 Spherocytes Cancelled 04/15/20 06:00 Pappenheimer Bodies Cancelled 04/15/20 06:00 Sickle Cells Cancelled 04/15/20 06:00 Target Cells Cancelled 04/15/20 06:00 Tear Drop Cells Cancelled 04/15/20 06:00 Ovalocytes Cancelled 04/15/20 06:00 Stomatocytes Cancelled 04/15/20 06:00 [place] Bodies Cancelled 04/15/20 06:00 Echinocytes 1+ 04/15/20 07:01 Acanthocytes (Spur) Cancelled 04/15/20 06:00 Rouleaux Cancelled 04/15/20 06:00 RBC Agglutinates Cancelled 04/15/20 06:00 Schistocytes Cancelled 04/15/20 06:00 RBC Morph Comment Cancelled 04/15/20 06:00 Sezary Cell Cancelled 04/15/20 06:00 PT 25.8 Seconds (9.0-12.0) H 04/15/20 07:01 INR 2.6 (0.9-1.1) H 04/15/20 07:01 APTT 35.2 Seconds (21.0-31.0) H 04/09/20 13:10 PTT Ratio 1.3 04/09/20 13:10 Sodium 138 mmol/L (136-145) 04/15/20 07:01 Potassium 3.0 mmol/L (3.5-5.1) L 04/15/20 07:01 Chloride 98 mmol/L (98-107) 04/15/20 07:01 Carbon Dioxide 34 mmol/L (21-32) H 04/15/20 07:01 Anion Gap 6.0 (3-11) 04/15/20 07:01 BUN 21 mg/dl (7-18) H 04/15/20 07:01 Creatinine 1.08 mg/dl (0.6-1.4) 04/15/20 07:01 Est Cr Clr Drug Dosing 70.9 ml/min 04/15/20 07:01 Est GFR ( Amer) 75.3 04/15/20 07:01 Est GFR (Non-Af Amer) 64.9 04/15/20 07:01 BUN/Creatinine Ratio 19.0 (10-20) 04/15/20 07:01 Glucose 176 mg/dl (70-99) H 04/15/20 07:01 POC Glucose 188 mg/dl (70-99) H 04/15/20 12:23 Lactate 3.4 mmol/L (0.4-2.0) H* 04/09/20 20:14 Calcium 8.7 mg/dl (8.5-10.1) 04/15/20 07:01 Phosphorus 2.8 mg/dl (2.5-4.9) 04/15/20 07:01 Magnesium 2.3 mg/dl (1.8-2.4) 04/13/20 06:11 Total Bilirubin 0.9 mg/dl (0.2-1) 04/10/20 06:32 AST 16 U/L (15-37) 04/10/20 06:32 ALT 15 U/L (12-78) 04/10/20 06:32 Alkaline Phosphatase 55 U/L (45-117) 04/10/20 06:32 Troponin I < 0.015 ng/ml (0-0.045) 04/10/20 11:03 NT-Pro-B Natriuret Pep 5187 pg/ml (0-1800) H 04/13/20 15:03 Total Protein 6.4 gm/dl (6.4-8.2) 04/10/20 06:32 Albumin 2.3 gm/dl (3.4-5.0) L 04/10/20 06:32 Globulin 4.1 gm/dl (2.5-4.0) H 04/10/20 06:32 Albumin/Globulin Ratio 0.6 (0.9-2) L 04/10/20 06:32 Procalcitonin 0.95 ng/ml (0-0.5) H 04/12/20 05:14 Urine Color Yellow 04/09/20 16:00 Urine Appearance Clear (Clear) 04/09/20 16:00 Urine pH 5.0 (4.5-7.5) 04/09/20 16:00 Ur Specific [place] 1.016 (1.000-1.030) 04/09/20 16:00 Urine Protein Trace (Negative) H 04/09/20 16:00 Urine Glucose (UA) Negative (Negative) 04/09/20 16:00 Urine Ketones Negative (Negative) 04/09/20 16:00 Urine Blood 1+ (Negative) H 04/09/20 16:00 Urine Nitrite Positive (Negative) A 04/09/20 16:00 Urine Bilirubin Negative (Negative) 04/09/20 16:00 Urine Urobilinogen Negative (Negative) 04/09/20 16:00 Ur Leukocyte Esterase 1+ (Negative) H 04/09/20 16:00 Urine WBC (Auto) 10-30 /hpf (0-5) H 04/09/20 16:00 Urine RBC (Auto) 0-4 /hpf (0-4) 04/09/20 16:00 U Hyaline Cast (Auto) 1-5 /lpf (0-5) 04/09/20 16:00 U Epithel Cells (Auto) 0-5 /lpf (0-5) 04/09/20 16:00 Urine Bacteria (Auto) Negative (Negative) 04/09/20 16:00 Nasal Screen MRSA (PCR) Negative (Negative) 04/09/20 22:45 Adenovirus (PCR) Not Detected (NotDetected) 04/09/20 14:15 B. pertussis DNA (PCR) Not Detected (NotDetected) 04/09/20 14:15 B.parapertussis DNA PCR Not Detected (NotDetected) 04/09/20 14:15 C. pneumoniae DNA (PCR) Not Detected (NotDetected) 04/09/20 14:15 Coronavirus OC43 (PCR) Not Detected (NotDetected) 04/09/20 14:15 Coronavirus HKU1 (PCR) Not Detected (NotDetected) 04/09/20 14:15 Coronavirus 229E (PCR) Not Detected (NotDetected) 04/09/20 14:15 COVID-19 PCR Not Detected (NotDetected) 04/09/20 14:15 Coronavirus NL63 (PCR) Not Detected (NotDetected) 04/09/20 14:15 Human Metapneumovir PCR Not Detected (NotDetected) 04/09/20 14:15 Influenza Type A (PCR) Not Detected (NotDetected) 04/09/20 14:15 Influ A Molecular Assay Negative (Negative) 04/09/20 13:30 Influenza Type B (PCR) Not Detected (NotDetected) 04/09/20 14:15 Influ B Molecular Assay Negative (Negative) 04/09/20 13:30 M. pneumoniae (PCR) Not Detected (NotDetected) 04/09/20 14:15 Parainfluenza 1 (PCR) Not Detected (NotDetected) 04/09/20 14:15 Parainfluenza 2 (PCR) Not Detected (NotDetected) 04/09/20 14:15 Parainfluenza 3 (PCR) Not Detected (NotDetected) 04/09/20 14:15 Parainfluenza 4 (PCR) Not Detected (NotDetected) 04/09/20 14:15 RSV (PCR) Not Detected (NotDetected) 04/09/20 14:15 Entero/Rhino (PCR) Not Detected (NotDetected) 04/09/20 14:15 Resident Activity Tracking Resident Involvement: Resident Care Provided Care Provided: Adult [facility] Medicine (1) Sepsis Sepsis acute organ dysfunction status: unspecified Sepsis type: sepsis due to unspecified organism Qualified Code(s): A41.9 - Sepsis, unspecified organism
[2020-04-15] MEDS ORDERED: POTASSIUM PHOSPHATE 21 MMOL in SODIUM CHLORIDE 0.9% 500 ML IV ONE (10:00)
[2020-04-15] MEDS: PANTOprazole 40 MG in SYRINGE 0 ML IV SCH ×2 (10:10→20:05)
[2020-04-15] MEDS: ATORVASTATIN 40 MG TAB PO SCH (10:11)
[2020-04-15] MEDS: guaiFENesin 600 MG TABCR PO SCH ×2 (10:11→20:18)
[2020-04-15] MEDS: ASPIRIN 81 MG ECTAB PO SCH (10:11)
[2020-04-15] MEDS: dilTIAZem ER 120 MG CAPCR PO SCH (10:12)
[2020-04-15] MEDS ORDERED: Nursing to Pharmacy Communication SCH (13:30)
[2020-04-15] MEDS ORDERED: NURSING LOW INTENSITY WARFARIN NOMOGRAM SCH (14:00)
[2020-04-15] MEDS ORDERED: WARFARIN SOD 1 MG TAB PO SCH (16:00)
--- NOTE | 2020-04-15 16:52 | Palliative Care Consultation ---
Date of Consultation April 15, 2020 Assessment & Plan (1) Palliative care encounter: As indicated in HPI, I spoke with Moreno about his concerns. He feels that he has had progressive illness and realizes that he is not likely to return to his prior level of function. He feels that he is tired of living like this and would not want further aggressive care. This is consistent with his prior wish of dnr/dni. He is capable of decision making, understanding his condition, the treatment that he is receiving and the implications of stopping that treatment. He was able to tell me this. Though he does not have a designated surrogate decision maker and tells me that he has never discussed his wishes for end of life in the past, he is capable of making decisions regarding his own care at this point in time. He did consent to my contacting his daughter, Barby, though he notes that they have been estranged. I will continue to reach out to Barby. (2) Acute and chronic respiratory failure with hypoxia: (3) Severe sepsis: History of Present Illness Reason for Consultation: goals of care Requesting Physician: Dr. Cid Attending Physician: Liborio Cid MD History of Present Illness 80 yo gentleman transferred from [facility] with acute on chronic hypoxic respiratory failure. He has h/o CAD with angioplasty earlier this year. He has also had a h/o atrial fibrillation with RVR. During this admission he is noted to have sepsis with cavitating pneumonia. His code status is DNR/DNI but he has required Bipap with 100% O2 and has been desaturating with even brief removal of bipap. During my visit, we unhooked bipap but kept in place over his face to discuss his concerns and goals of care. In the course of about five minutes his O2 sat dropped to 77%. He has consistently been requesting removal of bipap and being allowed to . He tells me this same thing and says that he is tired and ready to . He understands that he is dependent on the bipap for his breathing and that he would likely within minutes to hours of removal. He denies feeling depressed or having a history of depression. He has not taken any medications for depression in the past. I did speak with his physician at [facility]. He has not had any advance care planning discussions with Moreno in the past. He does not have any record of advance directive or surrogate decision maker. He notes that Moreno has a daughter, Barby Douglas, listed as a contact. I tried to call her but was unable to reach her. Moreno consents to my discussing his situation with her but there was no answer at the contact phone number provided by [facility]. [phone]. Allergies Allergy/AdvReac Type Severity Reaction Status Date / Time No Known Allergies Allergy Unverified 04/09/20 14:50 Home Medications Home Medications Medication Instructions Recorded Confirmed Type aspirin [Aspirin Low Dose] 81 mg PO QAM 06/29/18 04/09/20 History finasteride [Proscar] 5 mg PO HS 06/29/18 04/09/20 History furosemide [Lasix] 40 mg PO DAILY 06/29/18 04/09/20 History glyburide 5 mg PO BID 06/29/18 04/09/20 History levalbuterol tartrate [Xopenex HFA] 2 inh INHALATION QID PRN 06/29/18 04/09/20 History levothyroxine 75 mcg PO QAM 06/29/18 04/09/20 History metoprolol tartrate 12.5 mg PO BID 06/29/18 04/09/20 History tamsulosin [Flomax] 0.8 mg PO QPM 06/29/18 04/09/20 History ammonium lactate 1 applic TOPICAL BID 04/09/20 04/09/20 History atorvastatin 80 mg PO DAILY 04/09/20 04/09/20 History docusate sodium 250 mg PO HS 04/09/20 04/09/20 History famotidine 20 mg PO BID 04/09/20 04/09/20 History ddblwuhcxej-clzyxloas-ywbjelkx 1 inh INHALATION DAILY 04/09/20 04/09/20 History [Trelegy Ellipta] potassium chloride 10 meq PO BID 04/09/20 04/09/20 History warfarin 2 mg PO HS 04/09/20 04/09/20 History Patient History Medical History (Updated 04/15/20 @ 16:45 by Andie Perez MD) BPH (benign prostatic hyperplasia) Carotid artery stenosis COPD (chronic obstructive pulmonary disease) Coronary artery disease Diabetes mellitus Heart attack HTN (hypertension), benign Hypomagnesemia Orthostatic hypotension Prostatitis, acute Syncope Urinary retention Surgical History H/O cardiac catheterization H/O carotid endarterectomy H/O percutaneous transluminal coronary angioplasty Stented coronary artery Family History Other Family history non-contributory Social History Smoking Status: Never smoker Second Hand Exposure: No; Do You Dip or Chew Tobacco: No; Tobacco Cessation Education Requested by Patient: No Hx Alcohol Use: No Hx Substance Use: No Preferred Language: Slovak Communication Ability: Effective Visual Impairment: No Limitations Hearing Ability: Normal 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 Beliefs That Will Affect Care: None Current Living Situation: Other Current Living Situation Comment: sci Other Information That Helps Us Care for You: No Feels Safe at Home: Yes Safety Concerns: Feels Safe At This Time Assistive Devices: BiPap Review of Systems Review of Systems: [place] Symptom Assessment Scale Pain 1/3 Dyspnea 3/3 Nausea 0/3 Anxiety 2/3 Depression 1/3 Constipation 0/3 Constitutional: + weakness Eyes: no problem reported Ear, Nose, Mouth, Throat: dry mouth Respiratory: + dyspnea Cardiovascular: + edema; no chest pain Gastrointestinal: + abdominal pain Musculoskeletal: no joint pain Integumentary: no rash Neurologic: no confusion Psychiatric: as per Subjective / HPI Physical Exam 2 Constitutional: + ill appearing, + obese and + edematous Respiratory: + labored breathing and + uses accessory muscles Cardiovascular: Rate/Rhythm: regular rate and regular rhythm Gastrointestinal (Abdomen): Inspection/Auscultation: + abdomen distended Percussion/Palpation: + abdomen tender (to palpation) Musculoskeletal: Extremities: strength 5/5 throughout Skin: warm and dry Neurologic: no focal motor deficits and not confused Psychiatric: Orientation: alert and oriented x 3 Eye Contact: good eye contact Mood: + anxious mood; no depressed mood Thought Process: goal directed thought process; thought process not tangential Cognition: recent memory grossly intact, remote memory grossly intact and attention grossly intact Estimated Intelligence: average estimated intelligence Insight: good insight Judgement: good judgement Results & Data ([facility]) Vital Signs (Past 12 Hours) Vital Signs Temp Pulse Pulse Resp BP Pulse Ox 04/15/20 15:14 80 88 30 H 82 L 04/15/20 08:00 81 04/15/20 07:22 87 87 28 H 86 L 04/15/20 06:58 97.5 F L 87 20 113/71 86 L PG Care Time/CCT Total # of Minutes Spent Total Time Spent with Patient: Total time spent is greater than 50% in coordination of care (as documented) at patient's floor/unit and/or counseling patient: 70 minutes with more than 50% of time spent on discussion of goals of care, prognosis, coordination of care. Coding Level of Care Code 88983 Inpt Consult Level 4 Diagnoses Palliative care encounter Z51.5 Acute and chronic respiratory failure with hypoxia J96.21 Severe sepsis A41.9; R65.20 Time Spent (min) 70
[2020-04-15] MEDS: KETOROLAC TROMETHAMINE 15 MG/ML VIAL IV PRN (18:00)
--- NOTE | 2020-04-15 19:38 | Pulmonology Progress Note ---
Date of Service April 15, 2020 Assessment & Plan (1) Acute and chronic respiratory failure with hypoxia: CT chest 04/13/2020 personally reviewed: Centrilobular emphysema appreciated, multifocal infiltrate appreciated bilaterally with cavitation especially in the left upper lobe, bilateral pleural effusion more on the left side, right middle lobe lateral segment infiltrate elevated left hemidiaphragm. Mediastinal lymphadenopathy likely reactive. -- Acute on chronic hypoxic respiratory failure Multifactorial Combination of multilobar pneumonia on top of diastolic CHF, BNP greater than 5000 Continue with antibiotics, follow sputum culture Bio fire -ve 04/09/2020, COVID-19 negative, influenza AMB negative. Nasal MRSA negative Diuresis to keep negative balance BiPAP nightly and as needed shortness of breath Maintain SPO2 between 88 to 92% Patient had a 2D echo done on 04/10/2020 which did not show any signs of vegetation. EF 60-65%, type I diastolic dysfunction Repeat 2D echo: 04/14/20: Possibility of patent foraminal ovale. No clear vegetations identified. Given that the patient is needing 100% FiO2 support. Bronchoscopy would not be beneficial and likely detrimental. Likely-easley of intracardiac shunt which might be one of the reason why he is needing such high FiO2 on top of pulmonary pneumonia and effusion. Recent CABG and being in the hospital along with cavitary lesion and elevated WBC count while on antibiotics does put patient at risk for fungal infection. Patients QTc is 503. Voriconazole which is preferred treatment cannot be used for that reason. Started on Caspofungin on 04/13/20 and f/u Gallactomannan and B- D glucan. Repeat Limited 2D echo does show there is possibility of patent foramen ovale. Intra-atrial shunt might be playing a role in the hypoxia as well on top of the multilobar pneumonia that the patient has. --Pulmonary hypertension Type II-type 3 mixed Plan: In/out: Negative balance I doubt the patient has tuberculosis. Would recommend against using any steroids. Continue with diuretics as tolerated. Continue with antibiotics and antifungal Overall prognosis is guarded. Palliative care consult appreciated Keep the patient comfortable and pain-free. Please note the above document was generated using voice recognition software. It may contain grammatical, syntax or spelling errors.Any formal questions or concerns about the content, text or information contained within the body of thi s dictation should be directly addressed to the provider for clarification. (2) Multilobar lung infiltrate: (3) Pleural effusion: Admission and Anticipated Discharge Date Admission Date: April 09, 2020 Subjective Patient seen and examined at bedside. In respiratory distress. Says the breathing is the same. No chest pain, no headache, no nausea or vomiting. Has been afebrile. Still requiring 100% FiO2 to maintain saturation around 85-88. Review of Systems Review of Systems: All systems reviewed & are unremarkable except as noted in Subjective Physical Exam Physical Exam: Constitutional: In respiratory distress HEENT: EOMI, PERRLA Respiratory system: Decreased air entry bilaterally, positive crackles bilateral lower lobes, no wheeze, no rhonchi CVS: S1-S2 positive, distant heart sounds Abdomen: Soft, nontender, nondistended, positive bowel sounds x4, obese Extremities: +2 pulses bilaterally radialis/ dorsalis pedis, no cyanosis, +2 pitting edema bilateral lower extremity Neuro: Awake alert oriented x3 Psych: Normal mood and affect G/U: Positive Gtz Skin: no rashes, warm and dry Lymphatic: no cervical or axillary lymphadenopathy Results & Data Results & Data ([facility]) Vital Signs (Past 12 Hours) Vital Signs Temp Pulse Pulse Resp BP Pulse Ox 04/15/20 19:22 36.3 C L 88 21 130/79 85 L 04/15/20 15:14 80 88 30 H 82 L 04/15/20 08:00 81 04/15/20 07:01 04/15/20 07:01 PG Care Time/CCT Total # of Minutes Spent Total Time Spent with Patient: Total time spent is greater than 50% in coordination of care (as documented) at patient's floor/unit and/or counseling patient: Coding Level of Care Code 81258 Subseq Hosp Care Lvl 3 Diagnoses Acute and chronic respiratory failure with hypoxia J96.21 Multilobar lung infiltrate R91.8 Pleural effusion J90
[2020-04-15] MEDS: FLUTICASONE FUROATE 100MCG 14 PUFFS/INHALER INH SCH (20:18)
[2020-04-15] MEDS: UMECLIDINIUM/VILANTEROL 62.5/25MCG 7 PUFFS/INHALER INH SCH (20:18)
[2020-04-15] MEDS: TAMSULOSIN HCL 0.4 MG CAP PO SCH (20:18)
[2020-04-15] MEDS: FINASTERIDE 5 MG TAB PO SCH (20:18)
[2020-04-15] MEDS: DOCUSATE SODIUM 100 MG CAP PO SCH (20:18)
[2020-04-15] MEDS ORDERED: MoRPHine SULFATE 2 MG/ML CARP IV STA (21:19)
--- NOTE | 2020-04-15 22:14 | Communication Note ---
Date of Service: Apr 15, 2020 Saw patient with bedside assessment after being notified by nursing staff that patient refused BiPAP and was requesting to move to comfort measures only. Upon removing his BiPAP he has had desaturations quickly into the 70s, with lows into the 40s. Excessive discussion was had with patient patient who reported that he would like to move to comfort measures only and to stop antibiotic and invasive/uncomfortable measures including his BiPAP. He reports he had had many discussions over this in the preceding days, but was ready to make the decision even if it causes shortening of his life. "I am ready to ". He he expresses an understanding of his medical condition and is able to communicate his preferences. He is able to verbalize to me that he has pneumonia and lung disease which is severe and which may or may not improve with antibiotic treatment. He understands that choosing to stop antibiotics and not wear the BiPAP will likely cause his infection to worsen and his oxygen levels to drop, and that if he continues to have oxygen saturations between 40 and 80% that this will place stress on his heart which could be fatal in a matter of hours to days. He says he understands this but would like to stop antibiotics, lab draws, and other medications and focus on treatments to keep him comfortable only. He would also like his daughter Barby to be attempted to be contacted again to update her on his condition. She is not able to be reached via the phone number provided [phone]. Custodial was called and updated on his med ical condition and status change, they will make further attempts to reach out to her through their emergency contact numbers. A callback number was left with them for the hospital & my name and extension. Based on the discussion at bedside, which is also consistent with prior discussion in the last 2 to 3 days with hospitalist and palliative providers, patient has capacity to make medical decisions including the move to comfort measures only. Medications, lab draws, BiPAP, and invasive measures withdrawn at patient request and comfort measures only status with pain control order set has been ordered. Case was discussed and reviewed with attending provider. Resident Activity Tracking Resident Involvement: Resident Care Provided Care Provided: Adult [facility]
[2020-04-15] MEDS ORDERED: ONDANSETRON 4 MG OD TAB SL PRN (22:28)
[2020-04-15] MEDS ORDERED: ACETAMINOPHEN 325 MG TAB PO PRN (22:28)
[2020-04-15] MEDS ORDERED: LORazepam 0.5 MG TAB PO PRN (22:28)
[2020-04-15] MEDS ORDERED: MoRPHine SULFATE 5 MG/0.25 ML UDP PO PRN (22:28)
[2020-04-15] MEDS ORDERED: LORazepam 0.5 MG/1 ML VIAL IV PRN (22:28)
[2020-04-15] MEDS ORDERED: ONDANSETRON INJ 2 MG/ML 2 ML VIAL IV PRN (22:28)
[2020-04-15] MEDS ORDERED: ACETAMINOPHEN 650 MG SUPP PR PRN (22:28)
[2020-04-15] MEDS ORDERED: ATROPINE SULFATE 1% OP SOLN 2 ML BTL SL PRN (22:28)
--- NOTE | 2020-04-16 07:20 | Discharge Summary ---
Date of Service April 16, 2020 Admission HPI Per Admitting Provider Moreno Douglas is a 80-year-old male with T2DM, BPH, COPD and chronic congestive heart failure, recent NSTEMI s/p bypass who presents to the ER from [facility] with fever, hypoxia, hypotension and shortness of breath. Symptoms progressively getting worse over the last 3 days, with increasing productive yellow cough. No chest pain. Chronically the patient is on 2L O2 however increasing O2 requirement yesterday to 4L and hypoxic with O2 sats @ 82%. No associated lower extremity swelling. Labs taken yesterday concerning for elevated WBC 26.22 with UA grossly positive for infection. Recently hospitalized here in January for NSTEMI and subsequently underwent cardiac bypass in [facility]. In the ER CXR was concerning bilateral pleural effusions and bibasilar densities. He was treated with vancomycin and cefepime to cover for PNA. There was also concern for acute CHF and given 40mg IV lasix. Admission Exam Per Admitting Provider Constitutional: well developed and + acute distress (respiratory); + not well nourished Eyes: + anicteric sclerae; normal pupil size ENMT: Mouth: + dry oral mucous membranes Neck: trachea midline, no thyromegaly Respiratory: + cough; no respiratory distress Auscultation: + breath sounds absent (left base), + diminished lung sounds (left sided) and + crackles (coarse bilateral); no rhonchi and no wheezes Cardiovascular: Rate/Rhythm: regular rhythm and + tachycardic Heart Sounds: no murmur Vessels: no JVD (difficult to assess due to neck size) Extremities: normal capillary refill and + pedal edema (1+ to mid shins b/l); no calf tenderness Gastrointestinal (Abdomen): Inspection/Auscultation: + abdomen distended and normal bowel sounds Percussion/Palpation: abdomen soft; abdomen nontender, no guarding and abdomen not rigid Musculoskeletal: no cyanosis or clubbing, extremities motor strength 5/5 Skin: no rashes, warm and dry Neurologic: moves all extremities and awake; not confused Psychiatric: A+Ox3, euthymic affect Genitourinary: no CVA tenderness Principal Diagnosis Acute on Chronic Respiratory Failure, Pneumonia, Diastolic Heart Failure Exacerbation Discharge Exam Constitutional: obese, in respiratory distress with bipap on, visibly uncom fortable Eyes: EOMI, pupils equal and reactive bilaterally, no scleral icterus Cardiac: regular rate, regular rhythm, S1 and S2 normal, no murmurs or gallops Pulm: on Bipap with sats in 80s, working execessively to breath with accessory muscle involvement, poor air movement throughout lungs, unable to auscultate wheezes or crackles Abd: soft, nontender, distended, normal bowel sounds, no rebound or guarding Extremities: 2+ peripheral pulses, improving peripheral edema Neuro: no focal deficits, moving all 4 limbs, A&Ox3 Discharge Data Allergies Allergy/AdvReac Type Severity Reaction Status Date / Time No Known Allergies Allergy Unverified 04/09/20 14:50 Consultations 04/09/20 15:18 ED Decision to Admit Stat 04/09/20 18:02 Consult Health Information Management Routine 04/14/20 11:06 Consult Palliative Care Routine 04/15/20 22:28 Consult Case Management - Discharge Planning Routine Ordered Studies 04/13/20 14:54 CT chest wo con Routine 04/14/20 06:59 US guide vascular access Routine Hospital Course (1) Acute respiratory failure with hypoxia: Mr. Douglas was a 80-year-old male with a past medical history of paroxysmal A. fib, chronic hypoxic respiratory failure, recent coronary artery bypass in January 2020, BPH, COPD, hypertension, DM 2 who presented to the emergency department with acute worsening shortness of breath and increased oxygen requirement. Moreno was requiring high flow nasal cannula which was an increase in oxygen requirement from his 2 L of nasal cannula he normally took at baseline. Initial work-up appeared to be septic in nature and he was bolused fluids in the emergency department and started on broad-spectrum antibiotics. As his care in the hospital progressed it appeared to be more of a focal community-acquired pneumonia that was brewing so his antibiotics were downgraded to empiric cefepime as such. Treatment also included optimization of his lung function with underlying COPD in terms of scheduling DuoNebs and making sure he had access to his healers. Despite the antibiotics and going monitoring serum required more than what 40 L of 100% FiO2 on high flow could offer him and had to be placed on BiPAP initially at night and soon continuously during the day. He made it clear on multiple days and on multiple times in conversations that he did not want to be intubated and was already having trouble with comfort with the BiPAP. Even on BiPAP he was not oxygenating well and would frequently desaturate into the high to mid 80s when talking and on the BiPAP. Over the course of a week he rapidly declined requiring the BiPAP continuously but still only having an oxygen saturation in the mid to low 80s. CT scan of his chest showed a cavitary pneumonia with bilateral pleural effusions at the bases underlying emphysema. Cardiac echo was performed showing pulmonary hypertension and evidence of diastolic heart failure. Pulmonology was consulted and recommended additional treatment for fungal infection given his recent CABG he was started on caspofungin as well as broadened antibiotics (Zosyn). During this time he had repeat bouts of atrial fibrillation that required on and off control with amiodarone and diltiazem drips. Ultimately despite our best attempts to stabilize his lung function and find an underlying source for his cavitary pneumonia he opted to choose comfort care over continuing medical assistance. He at this point had talked to the knife edger, palliative care, the day inpatient team, as well as the night resident and expressed multiple times that he found the BiPAP extremely uncomfortable and did not wish to live like this. Ultimately, he chose to be full comfort care and passed a few hours after being taken off of all antibiotics and ventilation support. (2) Sepsis: (3) COPD (chronic obstructive pulmonary disease): (4) BPH (benign prostatic hyperplasia): (5) Severe sepsis: (6) H/O percutaneous transluminal coronary angioplasty: Total Time Total Time Spent Total Time Spent (In Minutes): see attending attestation Discharge Plan Discharge Items Patient Disposition: Supervising Physician Co-Signing Physician Notes Attending attestation Pt seen and examined in concert with Dr. Rausch. In agreement with the documented findings as noted in the resident documentation with any exceptions or additions as noted here. 80 y/o male h/o CABG, COPD with chronic respiratory failure on 2LNC, paroxysmal AF presented with sepsis 2/2 pneumonia in the setting of COPD. Deterioration overnight with transition to comfort measures 2/2 acute respiratory failure no longer responsive to BIPAP and DNI order necessitating transition per goals of care. On examination from previous day, S1/S2 nl, RRR. Persistent, diffuse wheezing and decreased breath sounds throughout, tachypneic on BIPAP. Abd NT/ND BS+ve. examination per documentation Sepsis in the setting of pneumonia w/ acute on chronic respiratory failure - transitioned to comfort measure with deterioration on maximal available support. . Else see resident documentation as noted. Resident Activity Tracking Resident Involvement: Resident Care Provided Care Provided: Adult Hospital Medicine
[2020-04-16 07:47] LABS: Quantiferon Mitogen-NIL 1.15 IU/mL; Quantiferon NIL 0.02 IU/mL; Quantiferon TB Gold Plus NEGATIVE (NEGATIVE); Quantiferon TB1-NIL <0.00 IU/mL
[2020-04-16] MEDS ORDERED: AMIODARONE 200 MG TAB PO SCH (09:00)
[2020-04-17 17:26] LABS: Fungitell (1-3)-B-D-Glucan <31
[2020-04-21 12:16] LABS: HIV 1 RNA PCR Copies/ML <20 NOT DETECTED copies/mL (NOT DETECTED); HIV-1 RNA Log Copies/mL <1.30 NOT DETECTED (NOT DETECTED)
== END 2020-04-15 23:56 | disposition expired | DRG 871 ==
LOC: ED 12:43 → SUATTDRO 16:40 → 2E 16:40 → 2S 04-15 11:12